=== PATIENT | female | born 1995 | race Caucasian/White ===

== ENCOUNTER 2021-02-08 13:08 | Emergency (ER) | payer OTHER, SELFPAY ==
--- NOTE | ~2021-02-08 | US_ITS ---
EXAMINATION: US OB <= 14 weeks fetus DATE: 02/08/2021 16:34 INDICATION: Vaginal spotting and cramping TECHNIQUE: Real-time transabdominal and transvaginal obstetric ultrasound. FINDINGS: The uterus measures 12.7 x 8.5 x 8.3 cm. There is an intrauterine gestational sac, with pole id entified. The crown rump length measures 7.22 cm, which correlates with a estimated gestational age of 13 weeks 3 days. heart tones are identified measuring 157 BPM. IMPRESSION: 1. SL IUP with an EGA of 13 weeks, 3 days (EDC by current ultrasound of 08/13/2021). Reviewed, dictated and finalized at location A. IMPRESSION: 1. SL IUP with an EGA of 13 weeks, 3 days (EDC by current ultrasound of 08/14/19).
[2021-02-08 13:16] VITALS: BP 147/68; PULSE 84; RESP 18; TEMP 37.2; O2SAT 100
[2021-02-08 14:50] LABS: Basophils Percent Auto 0.1 % (0.2-1.2); Eosinophils Percent Auto 0.5 % (0-4.4); Hematocrit 38.2 % (37.0-47.0); Hemoglobin 12.9 g/dL (12.0-15.0); Immature Granulocyte Absolute 0.04 K/mm3 (0.00-0.031); Immature Granulocyte Percent A 0.5 % (0-0.5); Lymphocytes Absolute Auto 1.64 K/mm3 (0.9-3.2); Lymphocytes Percent Auto 18.5 % (18.3-44.2); Mean Corpuscular HGB Conc 33.8 g/dl (32-36); Mean Corpuscular Hemoglobin 31.9 pg (26-34); Mean Corpuscular Volume 94.3 fl (80-100); Mean Platelet Volume 9.4 fl (7.4-10.4); Monocytes Absolute Auto 0.4 K/mm3 (0.1-0.6); Monocytes Percent Auto 4.4 % (2.6-8.5); Neutrophils Absolute Auto 6.8 K/mm3 (1.3-6.7); Platelet Count Result 271 k/mm3 (150-375); Red Blood Count 4.05 M/mm3 (4.2-5.4); White Blood Count 8.9 K/mm3 (4.5-10.0)
[2021-02-08 16:30] VITALS: BP 120/72; PULSE 83; RESP 16; O2SAT 100
--- NOTE | 2021-02-08 16:49 | ED.GENADULT ---
HPI - General Adult General Chief complaint: Vaginal Bleeding Stated complaint: 13 wks preg, bleeding Time Seen by Provider: 02/08/21 16:27 Source: patient Mode of arrival: ambulatory Limitations: no limitations History of Present Illness HPI narrative: Patient presents for evaluation of abdominal pain for the last few days. Pain is intermittent, bilateral upper quadrants lower quadrants and without radiation. She states she is currently , 13 weeks gestation. She has already had a confirmed IUP per ultrasound during this . G1, P0. States she is under the care of Dr. Negro. She contacted them last night regarding her abdominal pain. Informed her he thought it was related to constipation advised her to take Colace and an enema. She waited until this morning before she did so. She has small bowel movement thereafter. she had successful reduction in pain level thereafter. She indicates she noted some brown discharge on the tissue after wiping with urination earlier today, but this was an isolated episode. She states she has urinated several times since then without any symptom recurrence. Denies any vaginal bleeding, spotting or other urinary symptoms. She has a longstanding history of constipation. Surgical history positive for appendectomy and cholecystectomy. Related Data Allergies Allergy/AdvReac Type Severity Reaction Status Date / Time diphenhydramine AdvReac Unknown Hyperactive Unverified 03/23/14 11:30 Review of Systems Review of Systems: CONSTITUTIONAL: Denies fever, chills, or sweats. EYES: Denies visual changes, redness, or discharge. ENT: Denies rhinorrhea, congestion, sore throat, or otalgia. CARDIOVASCULAR: Denies chest pain, palpitations, or edema. RESPIRATORY: Denies cough or dyspnea. GASTROINTESTINAL: Reports abdominal pain and constipation. Denies nausea, vomiting, or diarrhea. GENITOURINARY: Reports brown discharge on tissue after wiping with urination earlier, now resolved. Denies any vaginal bleeding. Denies dysuria or hematuria. SKIN: Denies rash or itching. MUSCULOSKELETAL: Denies back pain, joint pain, or myalgia. NEUROLOGIC: Denies headache, numbness, dizziness, or weakness. PSYCHIATRIC: Denies anxiety or depression. [facility] Past Medical History Medical History (Updated 02/08/21 @ 17:28 by Jarrell Purcell, FITNESS CENTER ATTENDANT, ) Constipation Surgical History Surgical History History of appendectomy History of cholecystectomy Family History Family History Mother No pertinent past medical history Social History Social History Smoking status: Never smoker Substance use: never Gender identity (if verbalized by the patient): Female Sexual Orientation (if Verbalized by the Patient): Straight or Heterosexual Spiritual care concerns: No Exam Narrative: GENERAL: Well-appearing, well-nourished, and in no acute distress. HEAD: Normocephalic, atraumatic. EYES: PERRLA and EOMI. ENT: Nares clear, no rhinorrhea or epistaxis. Mucous membranes moist. Oropharynx without tonsillar hypertrophy exudate or other lesions. Bilateral TMs pearly mann nonbulging NECK: Supple. No adenopathy or masses. No carotid bruits or JVD CHEST: Clear to auscultation. No respiratory distress. No wheezes rales or rhonchi HEART: Regular rate and rhythm. No murmur heard. Normal peripheral pulses. ABDOMEN: Soft, nontender, nondistended, normal active bowel sounds. EXTREMITIES: Normal range of motion. No edema. SKIN: Warm, dry, no rash. NEURO: No focal deficits. Alert and oriented x3. PSYCH: Normal mood and affect. Declined pelvic exam Course Course Emergency Course: This is a 25-year-old female currently 13 weeks gestation that presented with complaints of abdominal pain. She suspected constipation as underlying cause an
[2021-02-08 17:11] LABS: Alanine Aminotransferase 22 U/L (4-35); Albumin Level 4.4 g/dL (3.5-5.1); Alkaline Phosphatase 66 U/L (38-126); Anion Gap 11 mmol/L (8-16); Aspartate Amino Transferase 33 U/L (14-36); Bilirubin,Total 0.3 mg/dL (0.2-1.3); Blood Urea Nitrogen 7 mg/dL (7-17); Carbon Dioxide 19 mmol/L (22-30); Chloride 105 mmol/L (98-107); Estimated CRCL calculation 127 ml/min; Estimated Glomerular Filt Rate > 60; Glucose 92 mg/dL (65-110); Lipase 34 U/L (23-300); Potassium 4.2 mmol/L (3.4-5.0); Sodium 135 mmol/L (137-145)
[2021-02-08 17:17] LABS: Add Urine Microscopic? YES; Appearance Urine Clear (Clear); Bilirubin Urine Negative (Negative); Blood Urine Negative (Negative); Color Urine Yellow (Yellow); Glucose Urine UA Negative (Negative); Ketones Urine 1+ mg/dL (Negative); Leukocyte Esterase Ur Trace LEU/UL (Negative); Mucus Urine Rare /lpf; Nitrate Urine Negative (Negative); Protein Urine Negative (Negative); Specific Grav Ur 1.013 (1.001-1.035); Squamous Epithelial Cell Urine Occasional /hpf (Few); Urobilinogen Urine Negative mg/dL (<2.0); WBC Urine 0-3 /hpf
[2021-02-08 17:42] VITALS: BP 114/70; PULSE 64; RESP 16; O2SAT 100
== END 2021-02-08 17:44 | disposition home or self-care (01) ==
PROVIDERS: Emergency Medicine; Emergency Provider Nurse Practitioner; PCP Obstetrics & Gynecology
DX: O99.611 Diseases of the digestive system complicating pregnancy, first trimester (principal); K59.09 Other constipation; Z3A.13 13 weeks gestation of pregnancy
CPT/HCPCS: 36415; 76801; 80053; 81001; 83690; 84702; 85025; 85461; 96372; 99284

== ENCOUNTER 2021-04-01 10:00 | Outpatient (CLI) | payer OTHER, SELFPAY ==
--- NOTE | 2021-04-01 | ECG_ITS ---
Measurements Intervals Trail Rate: 61 P: 25 MO: 142 QRS: 32 QRSD: 87 T: 14 QT: 391 QTc: 395 Interpretive Statements SINUS RHYTHM NORMAL ECG Electronically Signed On 04-01-2021 15:20:11 SR RISK MANAGEMENT CONSULTANT by Bruno Booker D.O.
== END 2021-04-01 10:01 | disposition home or self-care (01) ==
PROVIDERS: Visit Provider Obstetrics & Gynecology
DX: R07.89 Other chest pain (principal)
CPT/HCPCS: 93005

== ENCOUNTER 2021-05-16 12:17 | Outpatient (RCR) | payer OTHER, SELFPAY ==
[2021-05-16 13:44] LABS: Hematocrit 31.5 % (37.0-47.0); Hemoglobin 10.8 g/dL (12.0-15.0)
[2021-05-16 13:55] LABS: Glucose 1 Hour PP 50gm Dose 153 mg/dL
[2021-05-16 14:36] LABS: HIV 1/2 Ab P24 Ag Result Negative (Negative)
[2021-05-17] MEDS: RHO(D) IMMUNE GLOBULIN 300 MCG/2 ML SYRINGE IM (11:47)
[2021-05-17 14:39] LABS: Rapid Plasma Reagin Non-Reactive (NonReactive)
== END 2021-08-14 23:59 | disposition home or self-care (01) ==
LOC: ANHLAB 12:17
PROVIDERS: Visit Provider Obstetrics & Gynecology
DX: Z11.4 Encounter for screening for human immunodeficiency virus [HIV] (principal); Z29.13 Encounter for prophylactic Rho(D) immune globulin; O36.0130 Maternal care for anti-D [Rh] antibodies, third trimester, not applicable or unspecified; Z3A.00 Weeks of gestation of pregnancy not specified
CPT/HCPCS: 36415; 82947; 85014; 85018; 85461; 86592; 86703; 90384; 96372; G0432; J2790

== ENCOUNTER 2021-07-16 09:49 | Outpatient (RCR) | payer OTHER, SELFPAY ==
[2021-04-24 18:47] VITALS: BP 114/73; PULSE 76
[2021-06-29 12:55] VITALS: BP 115/68; PULSE 93
[2021-07-16 10:34] VITALS: BP 122/63; PULSE 95
== END 2021-07-23 23:59 | disposition home or self-care (01) ==
LOC: ANHOBOP 09:49
PROVIDERS: Visit Provider Obstetrics & Gynecology
DX: O36.8120 Decreased fetal movements, second trimester, not applicable or unspecified (principal); Z3A.24 24 weeks gestation of pregnancy; O26.893 Other specified pregnancy related conditions, third trimester; R03.0 Elevated blood-pressure reading, without diagnosis of hypertension; Z3A.33 33 weeks gestation of pregnancy; Z3A.36 36 weeks gestation of pregnancy
CPT/HCPCS: 59025

== ENCOUNTER 2021-07-30 00:06 | Inpatient (IN) | payer OTHER, SELFPAY ==
[2021-07-30] VITALS (174 sets, daily range): BP systolic 50–147; BP diastolic 31–95; PULSE 48–123; RESP 14–20; TEMP 36.6–37.5; O2SAT 96–100; BMI 39.0
--- OUTSIDE RECORDS SUMMARY | 2021-07-30 00:07 | XMS_ITS | Encounter Summary ---
:1995 Author Reason for Visit NST Assessment and Plan 1. Chronic hypertension in obste tric context ? non-stress test Discussion Note: None recorded.Patient educational handouts: No information available. Plan of Care Reminders Provider Appointments Nst 08/02/2021 Nst, , EQ UIP 11:30AM ? Nst 08/05/2021 Nst, , EQUI P 9:15AM ? Ob Routine 08/05/2021 Yolie Strickland, 9:45AM CNM ? Nst 08/09/2021 Nst, , EQUI P 11:30AM ? Nst 08/12/2021 Nst, , EQUI P 9:15AM ? Ob Routine 08/12/2021 Yolie Strickland, 9:45AM CNM ? Nst 08/16/2021 Nst, , EQUI P 11:30AM ? 1Hr on or around Rayshawn S cott Glucose 09/13/2021 MD Marky Lab None ? ? recorded. Referral None ? ? recorded. Procedures None ? ? recorded. Surgeries None ? ? recorded. Imaging Non-stress 07/26/2021 Demetria lle Test Medications Name Start Date ? ? Flintstones Complete ? ondansetron 8 mg disintegrating tablet ? DISSOLVE 1 TABLET IN MOUTH TWICE DAILY
--- OUTSIDE RECORDS SUMMARY | 2021-07-30 00:07 | XMS_ITS ---
:1995 Author Care Team Providers Name Role Phone MarkyDmRayshawntori Watters Primary Care Provider Unavailable Allergies Code Code System Name Reaction Severity Status Onset [id number] RxNorm Benadryl ? ? Active ? Medications Name Status Start Date Stop Date ? ? amoxicillin 500 mg capsule Completed ? 10/22 TAKE 1 CAPSULE BY MOUTH THREE TIMES DAILY FOR 7 DAYS amoxicillin 500 mg tablet Completed ? 2020 TK1 TABLET BY MOUTH THREE TIMES DAILY FOR 10 DAYS azithromycin 250 mg tablet Completed ? 06/24 TAKE 2 TABLETS BY MOUTH ON DAY 1, AND T HEN TAKE 1 TABLET BY MOUTH ONCE A DAY ON DAY 2 THROUGH DAY 5 Cleocin Completed ? 03/09/2020 clindamycin 1 % lotion Completed ? APPLY A THIN LAYER OF LOTION TOPICALLY 2 3 TIMES A WEEK AT NIGHT WASH OFF IN THE MORNING Diflucan 150 mg tablet Completed 08/19/2015 6 take 1 tablet by oral route once doxycycline monohydrate 100 mg capsule Completed 7 04/21/2019 take 1 capsule by oral route every day Flintstones Complete Active ? Not availab le fluconazole 200 mg tablet Completed ? 2020 TAKE 1 TABLET BY MOUTH EVERY OTHER DAY FOR 3 DOSES fluticasone propionate 50 mcg/actuation nasal spray,suspension C ompleted ? 10/22/2020 USE 2 SPRAY(S) IN EACH NOSTRIL ONCE DAILY NEEDED Gianvi (28) 3 mg-0.02 mg tablet Completed ? 06/29/2020 TAKE 1 TABLET BY MOUTH ONCE DAILY Microgestin FE 06/09 (28) 1 mg-20 mcg (21)/75 mg (7) tablet Compl eted ? 12/22/2020 take on tablet by oral route every day
--- OUTSIDE RECORDS SUMMARY | 2021-07-30 00:07 | XMS_ITS | Encounter Summary ---
:1995 Author Reason for Visit NST [id number] EDC 08/13/2021 LMP 11/06/2020 Assessment and Plan 1. Chronic hypertension complica ting AND/OR reason for care during ? non-stress test Discussion Note: None recorded.Patient educational handouts: No information available. Plan of Care Reminders Provider Appointments Nst 08/02/2021 Nst, , EQ UIP 11:30AM ? Nst 08/05/2021 Nst, , EQUI P 9:15AM ? Ob Routine 08/05/2021 Yolie Strickland, 9:45AM CNM ? Nst 08/09/2021 Nst, , EQUI P 11:30AM ? Nst 08/12/2021 Nst, , EQUI P 9:15AM ? Ob Routine 08/12/2021 Yolie Laureanoe, 9:45AM CNM ? Nst 08/16/2021 Nst, , EQUI P 11:30AM ? 1Hr on or around Rayshawn rolle Junior 09/13/2021 MD Marky Lab None ? ? recorded. Referral None ? ? recorded. Procedures None ? ? recorded. Surgeries None ? ? recorded. Imaging Non-stress 07/29/2021 Demetria guzman Test Medications Name Start Date ? ? Flintstones Complete ? ondansetron 8
--- OUTSIDE RECORDS SUMMARY | 2021-07-30 00:07 | XMS_ITS | Encounter Summary ---
:1995 Author Reason for Visit OB visit Assessment and Plan Assessment Note Patient is ___weeks . Discu ssed plan. 1. Routine care Discussion Note: None recorded.Patient educational handouts: No [...] recorded. Surgeries None ? ? recorded. Imaging None ? ? recorded. Medications Name Start Date ? ? Flintstones Complete ? ondansetron 8 mg disintegrating tablet ?
--- OUTSIDE RECORDS SUMMARY | 2021-07-30 00:07 | XMS_ITS | Encounter Summary ---
:1995 Author Reason for Visit OB visit OB [id number] EDC 08/13/2021 LMP 11/06/2020 Assessment and Plan Assessment Note Patient is _37__weeks . Dis cussed plan. 1. Routine care Discussion Note: None recorded.Patient educational handouts: No information available. Plan of Care Reminders Provider Appointments Nst 08/02/2021 Nst, , EQ UIP 11:30AM ? Nst 08/05/2021 Nst, , EQUI P 9:15AM ? Ob Routine 08/05/2021 Yolie Laureanoe, 9:45AM CNM ? Nst 08/09/2021 Nst, , EQUI P 11:30AM ? Nst 08/12/2021 Nst, , EQUI P 9:15AM ? Ob Routine 08/12/2021 Yolie Stollgle, 9:45AM CNM ? Nst 08/16/2021 Nst, , EQUI P 11:30AM ? 1Hr on or around Rayshawn Ballard sariah Pacheco 09/13/2021 MD Marky Lab None ? ? recorded. Referral None ? ? recorded. Procedures None ? ? recorded. Surgeries None ? ? recorded. Imaging None ? ? recorded. Medications Name Start Date ? ? Flintstones Complete ?
--- OUTSIDE RECORDS SUMMARY | 2021-07-30 00:08 | XMS_ITS | Encounter Summary ---
:1995 Author Reason for Visit NST [id number] EDC 08/13/2021 LMP 11/06/2020 Assessment and Plan 1. Chronic hypertension in [...] Surgeries None ? ? recorded. Imaging Non-stress 07/19/2021 Marysary lladrian Test Medications Name Start Date ? ? Flintstones Complete ? ondansetron 8 mg disintegrating tablet ? DISSOLVE 1 TABLET IN MO
--- OUTSIDE RECORDS SUMMARY | 2021-07-30 00:08 | XMS_ITS | Encounter Summary ---
:1995 Author Reason for Visit None recorded. Assessment and Plan 1. Oligohydramnios ? US, obstetric, biophysical profile Discussion Note: None recorded.Patient educational handouts: No information available. Plan of Care Reminders Provider Appointments Nst 08/02/2021 Nst, , EQ UIP 11:30AM ? Nst 08/05/2021 Nst, , EQUI P 9:15AM ? Ob Routine 08/05/2021 Yolie E 9:45AM [place], CNM ? Nst 08/09/2021 Nst, , EQUI P 11:30AM ? Nst 08/12/2021 Nst, , EQUI P 9:15AM ? Ob Routine 08/12/2021 Yolie E 9:45AM [place], CNM ? Nst 08/16/2021 Nst, , EQUI P 11:30AM ? 1Hr Glucose on or around Dm Watters 09/13/2021 MD Marky Lab None ? ? recorded. Referral None ? ? recorded. Procedures None ? ? recorded. Surgeries None ? ? recorded. Imaging US, 07/08/2021 [place] [facility], Biophysical Profile Medications Name Start Date ? ?
--- OUTSIDE RECORDS SUMMARY | 2021-07-30 00:08 | XMS_ITS | Encounter Summary ---
:1995 Author Reason for Visit OB visit Assessment and Plan Assessment Note Patient is ___weeks . Discu ssed plan. 1. Oligohydramnios 2. Gastroesophageal reflux disea se 3. Chronic hypertension complica ting AND/OR reason for care during Discussion Note: None recorded.Patient educational handouts: No [...]
--- OUTSIDE RECORDS SUMMARY | 2021-07-30 00:08 | XMS_ITS | Encounter Summary ---
:1995 Author Reason for Visit None recorded. Assessment and Plan 1. Chronic hypertension complica [...] ? 1Hr on or around Rayshawn Ballard cott Glucose 09/13/2021 MD Marky Lab None ? ? recorded. Referral None ? ? recorded. Procedures None ? ? recorded. Surgeries None ? ? recorded. Imaging Non-stress 07/05/2021 Demetria lladrian Test Medications Name Start Date ? ? Flintstones Complete ? ondansetron 8 mg disintegrating tablet
--- OUTSIDE RECORDS SUMMARY | 2021-07-30 00:08 | XMS_ITS | Encounter Summary ---
[...] ? 1Hr on or around Rayshawn rolle Glucose 09/13/2021 MD Marky Lab None ? ? recorded. Referral None ? ? recorded. Procedures None ? ? recorded. Surgeries None ? ? recorded. Imaging Non-stress 07/22/2021 Demetria lladrian Test Medications Name Start Date ? ? Flintstones Complete ? ondansetron 8 mg disintegrating tablet ?
--- OUTSIDE RECORDS SUMMARY | 2021-07-30 00:08 | XMS_ITS | Encounter Summary ---
:1995 Author Reason for Visit None recorded. Assessment and Plan 1. Maternal obesity complicating , childbirth and the puerperium, antepartum ? US, obstetric, biophysical profile + non-stress test Discussion Note: None recorded.Patient educational handouts: No information available. Plan of Care Reminders Provider Appointments Nst 08/02/2021 Nst, , EQ UIP 11:30AM ? Nst 08/05/2021 Nst, , EQUI P 9:15AM ? Ob Routine 08/05/2021 Yolie E 9:45AM [place], CNM ? Nst 08/09/2021 Nst, , EQUI P 11:30AM ? Nst 08/12/2021 Nst, , EQUI P 9:15AM ? Ob Routine 08/12/2021 Yolie E 9:45AM [place], CNM ? Nst 08/16/2021 Nst, , EQUI P 11:30AM ? 1Hr Glucose on or around Dm Watters 09/13/2021 MD Marky Lab None ? ? recorded. Referral None ? ? recorded. Procedures None ? ? recorded. Surgeries None ? ? recorded. Imaging US, 07/15/2021 [place] [facility], Biophysical Profile + Non-stress Test
--- OUTSIDE RECORDS SUMMARY | 2021-07-30 00:08 | XMS_ITS | Encounter Summary ---
:1995 Author Reason for Visit None recorded. Assessment and Plan 1. Maternal obesity complicating , childbirth and the puerperium, antepartum ? non-stress test Discussion Note: None recorded.Patient [...] Surgeries None ? ? recorded. Imaging Non-stress 07/15/2021 Demetria lladrian Test Medications Name Start Date ? ? Flintstones Complete ? ondansetron 8 mg disintegratin
--- OUTSIDE RECORDS SUMMARY | 2021-07-30 00:08 | XMS_ITS | Encounter Summary ---
:1995 Author Reason for Visit NST [id number] EDC 08/13/2021 LMP 11/06/2020 Assessment and Plan 1. Gestational diabetes mellitus , class A>1< ? non-stress test Discussion Note: None recorded.Patient [...] Surgeries None ? ? recorded. Imaging Non-stress 07/12/2021 Demetria guzman Test Medications Name Start Date ? ? Flintstones Complete ? ondansetron 8 mg disintegrating tablet ? DISSOLVE 1 TABLET IN
--- OUTSIDE RECORDS SUMMARY | 2021-07-30 00:08 | XMS_ITS | Encounter Summary ---
[...] Surgeries None ? ? recorded. Imaging Non-stress 07/08/2021 Demetria lladrian Test Medications Name Start Date ? ? Flintstones Complete ? ondansetron 8 mg disintegrating tablet
--- OUTSIDE RECORDS SUMMARY | 2021-07-30 00:08 | XMS_ITS | Encounter Summary ---
:1995 Author Reason for Visit None recorded. Assessment and Plan 1. -induced hypertensio n ? non-stress test Discussion Note: None recorded.Patient [...] ? ? recorded. Imaging Non-stress 07/22/2021 Demetria guzman Test Medications Name Start Date ? ? Flintstones Complete ? ondansetron 8 mg disintegrating tablet ? DISSOLVE 1 TABLET IN MOUTH TWICE DAILY
--- OUTSIDE RECORDS SUMMARY | 2021-07-30 00:08 | XMS_ITS | Encounter Summary ---
:1995 Author Reason for Visit OB visit OB [id number] EDC 08/13/2021 LMP 11/06/2020 Assessment and Plan Assessment Note Patient is __33 _weeks . Di scussed plan. 1. Routine care Discussion Note: None recorded.Patient educational handouts: No information available. Plan of Care Reminders Provider Appointments Nst 08/02/2021 Nst, , EQ UIP 11:30AM ? Nst 08/05/2021 Nst, , EQUI P 9:15AM ? Ob Routine 08/05/2021 Yolie Stollgle, 9:45AM CNM ? Nst 08/09/2021 Nst, , EQUI P 11:30AM ? Nst 08/12/2021 Nst, , EQUI P 9:15AM ? Ob Routine 08/12/2021 Yolieharmeet Stollgle, 9:45AM CNM ? Nst 08/16/2021 Nst, [...]
--- OUTSIDE RECORDS SUMMARY | 2021-07-30 00:09 | XMS_ITS | Encounter Summary ---
[...] Surgeries None ? ? recorded. Imaging Non-stress 06/21/2021 Demetria lladrian Test Medications Name Start Date ? ? Flintstones Complete ? ondansetron 8 mg disintegrating tablet
--- OUTSIDE RECORDS SUMMARY | 2021-07-30 00:09 | XMS_ITS | Encounter Summary ---
:1995 Author Reason for Visit OB visit [id number] Assessment and Plan Assessment Note . 1. Routine care Discussion Note: None recorded.Patient [...] 1Hr on or around Rayshawn Ballard cott [facility] 09/13/2021 MD Marky Lab None ? ? recorded. Referral None ? ? recorded. Procedures None ? ? recorded. Surgeries None ? ? recorded. Imaging None ? ? recorded. Medications Name Start Date ? ? Flintstones Complete ? ondansetron 8 mg disintegrating tablet ?
--- OUTSIDE RECORDS SUMMARY | 2021-07-30 00:09 | XMS_ITS | Encounter Summary ---
:1995 Author Reason for Visit None recorded. Assessment and Plan 1. Oligohydramnios ? US, obstetric, biophysical profile Discussion Note: None recorded.Patient educational handouts: No information available. Plan of Care Reminders Provider Appointments Nst 08/02/2021 Nst, , EQ UIP 11:30AM ? Nst 08/05/2021 Nst, , EQUI P 9:15AM ? Ob Routine 08/05/2021 Yolie E 9:45AM [place], CNM ? Nst 08/09/2021 Nst, , EQUI [...] Surgeries None ? ? recorded. Imaging US, 07/01/2021 [place] [facility], Biophysical Profile Medications Name Start Date ? ?
--- OUTSIDE RECORDS SUMMARY | 2021-07-30 00:09 | XMS_ITS | Encounter Summary ---
:1995 Author Reason for Visit None recorded. Assessment and Plan 1. Maternal obesity complicating , childbirth and the puerperium, antepartum ? US, obstetric, follow-up Discussion Note: None recorded.Patient educational handouts: No [...] Surgeries None ? ? recorded. Imaging US, 05/19/2021 [place] [facility], Follow-up Medications Name Start Date ? ? FlintsLOOKSIMAes Com
--- OUTSIDE RECORDS SUMMARY | 2021-07-30 00:09 | XMS_ITS | Encounter Summary ---
:1995 Author Reason for Visit OB visit OB [id number] EDC 08/13/2021 LMP 11/06/2020 Assessment and Plan Assessment Note Patient is __32_weeks . Dis cussed plan. 1. Routine care [...]
--- OUTSIDE RECORDS SUMMARY | 2021-07-30 00:09 | XMS_ITS | Encounter Summary ---
[...] Surgeries None ? ? recorded. Imaging Non-stress 06/28/2021 Demetria lladrian Test Medications Name Start Date ? ? Flintstones Complete ? ondansetron 8 mg disintegrating tablet
--- OUTSIDE RECORDS SUMMARY | 2021-07-30 00:09 | XMS_ITS | Encounter Summary ---
[...] Surgeries None ? ? recorded. Imaging Non-stress 06/24/2021 Demetria lladrian Test Medications Name Start Date ? ? Flintstones Complete ? ondansetron 8 mg disintegrating tablet
--- OUTSIDE RECORDS SUMMARY | 2021-07-30 00:09 | XMS_ITS | Encounter Summary ---
:1995 Author Reason for Visit None recorded. Assessment and Plan 1. Gestational diabetes mellitus , class A>1< Pt here for diet teaching. t teaching completed. Carb counts for meals and snacks reviewed. Pt instructed on ho w to read nutritional labels and instructed on researching carb counts for fresh fru its and vegetables. Pt provided with print outs with some fresh food carb counts an d online resources reinforced for checking fresh food serving sizes and carb counts . Pt instructed on blood sugar level goals and importance of checking blood sugar a nd keeping blood sugar log. Pt instructed on high protein low carb and provided with food recommendations. Pt instructed on 2200 calorie ADA diet and importance of regul ar meals and snacks with controlled carb amounts for a usp stable control o f blood sugar. Pt is aware an OB steamship agent will call her next week to review her BS log after making diet changes. Pt verbalized understanding of information discussed. Mary Chapin RN Discussion Note: None recorded.Patient educational handouts: No information available. Plan of Care Reminders Provider Appointments Nst 08/02/2021 Nst, , EQ UIP 11:30AM ? Nst 08/05/2021 Nst, , EQUI P 9:15AM ? Ob Routine 08/05/2021 Yolie Strickland, 9:45AM CNM ? Nst 08/09/2021 Nst, , EQUI P 11:30AM ? Nst 08/12/2021 Nst, , EQUI P 9:15AM ? Ob Routine 08/12/2021 Yolieharmeet Laureanoe, 9:45AM CNM ? Nst 08/16/2021 Nst, , EQUI P
--- OUTSIDE RECORDS SUMMARY | 2021-07-30 00:09 | XMS_ITS | Encounter Summary ---
[...] Surgeries None ? ? recorded. Imaging US, 06/24/2021 [place] [facility], Follow-up Medications Name Start Date ? ? FlintsContact At Once!es Com
--- OUTSIDE RECORDS SUMMARY | 2021-07-30 00:09 | XMS_ITS | Encounter Summary ---
[...] Surgeries None ? ? recorded. Imaging Non-stress 07/01/2021 Demetria lladrian Test Medications Name Start Date ? ? Flintstones Complete ? ondansetron 8 mg disintegrating tablet
[2021-07-30 00:46] LABS: Basophils Percent Auto 0.2 % (0.2-1.2); Eosinophils Absolute Auto 0.1 K/mm3 (0-0.3); Eosinophils Percent Auto 0.6 % (0-4.4); Hematocrit 31.4 % (37.0-47.0); Hemoglobin 10.4 g/dL (12.0-15.0); Immature Granulocyte Absolute 0.13 K/mm3 (0.00-0.031); Immature Granulocyte Percent A 1.1 % (0-0.5); Lymphocytes Absolute Auto 2.07 K/mm3 (0.9-3.2); Lymphocytes Percent Auto 16.8 % (18.3-44.2); Mean Corpuscular HGB Conc 33.1 g/dl (32-36); Mean Corpuscular Hemoglobin 30.1 pg (26-34); Mean Platelet Volume 9.8 fl (7.4-10.4); Monocytes Absolute Auto 0.8 K/mm3 (0.1-0.6); Monocytes Percent Auto 6.4 % (2.6-8.5); Neutrophils Absolute Auto 9.2 K/mm3 (1.3-6.7); Neutrophils Percent Auto 74.9 % (45.5-73.1); Platelet Count Result 294 k/mm3 (150-375); Red Blood Count 3.45 M/mm3 (4.2-5.4); Red Cell Distribution Width 12.6 % (11.5-14.5); White Blood Count 12.3 K/mm3 (4.5-10.0)
--- NOTE | 2021-07-30 00:47 | LDADM ---
This patient, Marleny Truong, was admitted to Labor/Delivery/Recovery 107 on 07/30/21 at 00:01. Plans for labor, pain management and were discussed with patient. Patient/family oriented to hospital policies and general routines including ID bracelet, bed and alarms, visiting hours, pain management, procedures, bathroom and other care routines, personal items, smoking policy, room service/diet and guest tray routines, infant security routines, and visiting hours. Patient/Family are encouraged to report perceived risks to care and to ask questions if they do not understand what they are told or what they should do. See OBIX for further documentation.
[2021-07-30 00:57] LABS: Alanine Aminotransferase 10 U/L (4-35); Albumin Level 3.7 g/dL (3.5-5.1); Alkaline Phosphatase 173 U/L (38-126); Anion Gap 6 mmol/L (8-16); Aspartate Amino Transferase 21 U/L (14-36); Bilirubin,Total 0.3 mg/dL (0.2-1.3); Blood Urea Nitrogen 9 mg/dL (7-17); Calcium 8.8 mg/dL (8.4-10.2); Carbon Dioxide 19 mmol/L (22-30); Chloride 108 mmol/L (98-107); Estimated Glomerular Filt Rate > 60; Glucose 110 mg/dL (65-110); Sodium 133 mmol/L (137-145); Uric Acid 4.4 mg/dL (2.5-7.5)
[2021-07-30] MEDS: DINOPROSTONE 10 MG VAG INSERT VAGINAL (00:58)
[2021-07-30 01:37] LABS: HIV 1/2 Ab P24 Ag Result Negative (Negative)
[2021-07-30 04:21] LABS: Glucose Point of Care 91 mg/dl (65-105)
[2021-07-30] MEDS: SERTRALINE HCL 50 MG TABLET PO (04:29)
[2021-07-30 07:54] LABS: Rapid Plasma Reagin Non-Reactive (NonReactive)
[2021-07-30 08:07] LABS: Glucose Point of Care 95 mg/dl (65-105)
--- NOTE | 2021-07-30 08:38 | WPDOBADMIT ---
Obstetrics - Admit Note Admission Note: 25 y /o G1 @ 38 weeks here for induction of labor for chtn. record reviewed. No pertinent additions to the history and/or any subsequent changes in the physical findings that are not consistent with the expected course of the were found. Additions to the history and/or subsequent changes in the physical findings follow. None.
[2021-07-30 12:19] LABS: Glucose Point of Care 110 mg/dl (65-105)
[2021-07-30] MEDS: LACTATED RINGERS 1,000 ML 125 ML IV CONT (13:32)
[2021-07-30] MEDS: OXYTOCIN 30 UNITS/NS 500 ML 30 UNITS/500 ML BAG 6 UNITS IV CONT (13:35)
--- NOTE | 2021-07-30 15:25 | PM.OBPNLAB ---
Pain Control Date/time seen: 07/30/21 15:25 VSS Contractions irregular FHR category 1 Cervix /-2 AROM moderate amount of clear odorless fluid Epidural as desired
[2021-07-30 16:13] LABS: Glucose Point of Care 78 mg/dl (65-105)
[2021-07-30] MEDS: LACTATED RINGERS 1,000 ML 999 ML IV CONT ×2 (17:59→19:42)
--- NOTE | 2021-07-30 18:48 | WPDANESEPP ---
Anes - Eval Pre Procedure Procedure: labor epidural Date/Time: 07/30/21 18:48 Surgeon: mele Preop Diagnosis: pain during labor Pre Op Diagnosis: medical induction of labor Patient Data Age: 25 Gender: F Height: 1.6 m Weight: 100 kg Last Vital Signs Temp 37.4 C 07/30/21 17:00 Pulse 86 07/30/21 18:46 Resp 16 07/30/21 04:49 BP 129/53 L 07/30/21 18:46 Pulse Ox 100 07/30/21 18:47 Allergies Allergy/AdvReac Type Severity Reaction Status Date / Time diphenhydramine AdvReac Unknown Hyperactive Verified 07/30/21 02:07 Home Medications Medication Instructions Recorded Confirmed Type pantoprazole [Protonix] See Rx Instructions .ROUTE .COMPLEX 07/30/21 07/30/21 History sertraline [Zoloft] See Rx Instructions .ROUTE .COMPLEX 07/30/21 07/30/21 History Laboratory Tests 07/30/21 07/30/21 07/30/21 00:19 00:19 00:19 WBC 12.3 K/mm3 H K/mm3 (4.5-10.0) RBC 3.45 M/mm3 L M/mm3 (4.2-5.4) Hgb 10.4 g/dL L g/dL (12.0-15.0) Hct 31.4 % L % (37.0-47.0) MCV 91.0 fl fl (80-100) MCH 30.1 pg pg (26-34) MCHC 33.1 g/dl g/dl (32-36) RDW 12.6 % % (11.5-14.5) Plt Count 294 k/mm3 k/mm3 (150-375) MPV 9.8 fl fl (7.4-10.4) Immature Gran % (Auto) 1.1 % H % (0-0.5) Neut % (Auto) 74.9 % H % (45.5-73.1) Lymph % (Auto) 16.8 % L % (18.3-44.2) [place] % (Auto) 6.4 % % (2.6-8.5) Eos % (Auto) 0.6 % % (0-4.4) Baso % (Auto) 0.2 % % (0.2-1.2) Lymph # (Auto) 2.07 K/mm3 K/mm3 (0.9-3.2) [place] # (Auto) 0.8 K/mm3 H K/mm3 (0.1-0.6) Eos # (Auto) 0.1 K/mm3 K/mm3 (0-0.3) Baso # (Auto) 0.0 K/mm3 K/mm3 (0.0-0.1) Abs Immat Gran (auto) 0.13 K/mm3 H K/mm3 (0.00-0.031) Absolute Neuts (auto) 9.2 K/mm3 H K/mm3 (1.3-6.7) Absolute Nucleated RBC 0.0 K/mm3 K/mm3 (0.0-0.012) Nucleated RBC % 0.0 % % (0.0-0.2) Sodium Potassium Chloride Carbon Dioxide Anion Gap BUN Creatinine Estim Creat Clear Calc Estimated GFR Glucose POC Capillary Glucose Uric Acid 4.4 mg/dL mg/dL (2.5-7.5) Calcium Total Bilirubin AST ALT Alkaline Phosphatase Total Protein Albumin RPR Non-reactive (NonReactive) HIV 1&2 Ab/P24 Ag 4thGn Blood Type Antibody Screen 07/30/21 07/30/21 07/30/21 00:19 00:19 00:19 WBC RBC Hgb Hct MCV MCH MCHC RDW Plt Count MPV Immature Gran % (Auto) Neut % (Auto) Lymph % (Auto) [place] % (Auto) Eos % (Auto) Baso % (Auto) Lymph # (Auto) [place] # (Auto) Eos # (Auto) Baso # (Auto) Abs Immat Gran (auto) Absolute Neuts (auto) Absolute Nucleated RBC Nucleated RBC % Sodium 133 mmol/L L mmol/L (137-145) Potassium 4.0 mmol/L mmol/L (3.4-5.0) Chloride 108 mmol/L H mmol/L (98-107) Carbon Dioxide 19 mmol/L L mmol/L (22-30) Anion Gap 6 mmol/L L mmol/L (8-16) BUN 9 mg/dL mg/dL (7-17) Creatinine 0.60 mg/dL L mg/dL (0.7-1.0) Estim Creat Clear Calc Not Reportable Estimated GFR > 60 (59 - ) Glucose 110 mg/dL mg/dL (65-110) POC Capillary Glucose Uric Acid Calcium 8.8 mg/dL mg/dL (8.4-10.2) Total Bilirubin 0.3 mg/dL mg/dL (0.2-1.3) AST 21 U/L U/L (14-36) ALT
[2021-07-30] MEDS: ONDANSETRON INJ 4 MG/2 ML VIAL IV PUSH (18:52)
[2021-07-30] MEDS: PHENYLEPHRINE 1,000 MCG/10 ML SYRINGE 100 MCG IV PUSH ×2 (19:02→19:58)
[2021-07-30 20:33] LABS: Glucose Point of Care 90 mg/dl (65-105)
[2021-07-31] VITALS (152 sets, daily range): BP systolic 88–173; BP diastolic 48–128; PULSE 59–187; RESP 16–18; TEMP 36.3–37.2; O2SAT 87–100
[2021-07-31 00:46] LABS: Glucose Point of Care 81 mg/dl (65-105)
[2021-07-31 04:15] LABS: Glucose Point of Care 95 mg/dl (65-105)
[2021-07-31] MEDS: LACTATED RINGERS 1,000 ML 125 ML IV CONT (04:22)
[2021-07-31] MEDS: SERTRALINE HCL 50 MG TABLET PO (04:28)
[2021-07-31 06:23] LABS: Glucose Point of Care 102 mg/dl (65-105)
--- NOTE | 2021-07-31 08:01 | PM.OBPRVD ---
OB - Delivery Note Procedure Delivery date: 07/31/21 Induction method: Per Pitocin Protocol and Per Cervidil Protocol Delivery monitor: External FHT and External Uterine Route of delivery: Episiotomy description: None Laceration Description: None Quantitative Blood Loss (ml): 109 Anesthesia type: Epidural [place] Baby Date of : 07/31/21 Time of : 07:44 Weeks of gestation at delivery: 38 gender: Female Weight (pounds): 5 Weight (ounces): 14 presentation: vertex position: Left Occiput Anterior Placenta delivery description: Spontaneous Cord Vessel Description: Nuchal Cord (x2 tight. Unable to reduce. Clamped and cut prior to delivery of body.) and Tight
[2021-07-31] MEDS: OXYTOCIN 30 UNITS/NS 500 ML 30 UNITS/500 ML BAG 125 UNITS IV CONT (08:17)
[2021-07-31] MEDS: IBUPROFEN 600 MG TABLET PO ×3 (09:04→22:21)
[2021-07-31] MEDS: BENZOCAINE 20% AER SPR (*SP) 56 GM CAN 1 SPRAY TOPICAL (09:07)
--- NOTE | 2021-07-31 10:15 | OBPPTRN ---
Patient transferred to post room # 290 via wheelchair. Support person present. Oriented to unit, room, information board, rooming in, admission packet and security measures. Patient verbalizes understanding.
[2021-07-31] MEDS: DOCUSATE SODIUM 100 MG CAPSULE PO (15:57)
[2021-07-31] MEDS: TETANUS,DIPHTHERIA,AC PERTUSSIS ADULT (0.5 ML) BOOSTRIX IM (19:23)
[2021-08-01 00:25] VITALS: BP 118/62; PULSE 72; RESP 16; TEMP 36.4; O2SAT 99
[2021-08-01] MEDS: IBUPROFEN 600 MG TABLET PO ×2 (04:24→17:56)
[2021-08-01 04:25] VITALS: BP 108/66; PULSE 68; RESP 16; TEMP 36.6; O2SAT 100
[2021-08-01 04:54] LABS: Glucose Point of Care 82 mg/dl (65-105)
[2021-08-01 05:34] LABS: Hematocrit 27.7 % (37.0-47.0); Hemoglobin 9.2 g/dL (12.0-15.0)
[2021-08-01 08:05] VITALS: BP 118/62; PULSE 63; RESP 18; TEMP 36.6; O2SAT 100
--- NOTE | 2021-08-01 08:23 | PM.OBPNVD ---
OB - PN: Subj Subjective Date/time seen: 08/01/21 08:23 Patient comments: no complaints, pain well controlled, tolerating diet and flatus present OB - PN: Obj Data Labs CBC & Chem 7: 08/01/21 04:56 07/30/21 00:19 Labs: Laboratory Results - last 24 hr 08/01/21 08/01/21 08/01/21 04:43 04:56 04:56 Hgb 9.2 L Hct 27.7 L POC Capillary Glucose 82 Blood Type O Negative Antibody Screen Negative Screen Negative Baby's Blood Type O pos Baby's RACIEL Negative Doses of RhIg Required 1 OB - PN A/P Plan day: 1 Comments: Post Op LTCS - no problems, routine recovery Time Spent With Patient Time: Total time spent is greater than 50% in coordination of care (as documented) at patient's floor/unit and/or counseling patient: Exam Const: General: cooperative, healthy appearing, comfortable and no acute distress Resp: Auscultation: no crackles, no rales, no rhonchi and no wheezes Cardio: Rhythm: regular rhythm Heart sounds: no click and no murmurs GI: Inspection: non-distended Auscultation: normal bowel sounds Extrem: General: normal to inspection, no pedal edema and no calf tenderness
[2021-08-01] MEDS: POLYSACCHARIDE IRON COMPLEX 150 MG CAPSULE PO ×2 (09:52→17:55)
[2021-08-01] MEDS: DOCUSATE SODIUM 100 MG CAPSULE PO ×2 (09:52→17:56)
[2021-08-01] MEDS: RHO(D) IMMUNE GLOBULIN 300 MCG/2 ML SYRINGE IM (09:54)
--- OUTSIDE RECORDS SUMMARY | 2021-08-01 13:57 | XMS_ITS | Encounter Summary ---
[...] P 9:15AM ? Ob Routine 08/05/2021 Yolie Kathya Strickland, 9:45AM CNM ? Nst 08/09/2021 Nst, , EQUI P 11:30AM ? Nst 08/16/2021 Nst, , EQUI P 11:30AM ? 1Hr on or around Rayshawn rolle [facility] 09/13/2021 MD [facility] None ? ? recorded. Referral None ? ? recorded. Procedures None ? ? recorded. Surgeries None ? ? recorded. Imaging Non-stress 07/15/2021 Demetria guzman Test Medications Name Start Date ? ? Flintstones Complete ? ondansetron 8 mg disintegrating tablet ? DISSOLVE 1 TABLET IN MOUTH TWICE DAILY pantoprazole 40 mg tablet,delayed release ? TAKE 1 TABLET BY MOUTH ONCE DAILY sertraline 25 mg tablet ? TAKE 1 TABLET BY
--- OUTSIDE RECORDS SUMMARY | 2021-08-01 13:57 | XMS_ITS | Encounter Summary ---
[...] ? Ob Routine 08/05/2021 Yolie E 9:45AM SCARLET Strickland ? Nst 08/09/2021 Nst, , EQUI P 11:30AM ? Nst 08/16/2021 Nst, , EQUI P 11:30AM ? 1Hr Glucose on or around Dm Watters 09/13/2021 MD [facility] None ? ? recorded. Referral None ? ? recorded. Procedures None ? ? recorded. Surgeries None ? ? recorded. Imaging US, 07/15/2021 [place] [facility]stetric, Biophysical Profile + Non-stress Test Medications Name Start Date ? ? Flintstones Complete ? ondansetron 8 mg disintegrating tablet ? DISSOLVE 1 TABLET IN MOUTH TWICE
--- OUTSIDE RECORDS SUMMARY | 2021-08-01 13:57 | XMS_ITS | Encounter Summary ---
[...] mg tablet ? TAKE 1 TABLET BY MOUTH ONC
--- OUTSIDE RECORDS SUMMARY | 2021-08-01 13:57 | XMS_ITS | Encounter Summary ---
[...] tablet ? TAKE 1 TABLET BY MOUTH ONCE DAILY
--- OUTSIDE RECORDS SUMMARY | 2021-08-01 13:57 | XMS_ITS | Encounter Summary ---
[...] ? 1Hr on or around Rayshawn rolle [facility] [place] 09/13/2021 MD [facility]y [facility] None ? ? [...] 1 TABLET BY MOUTH ONCE DAILY sertraline 50 mg tablet ?
--- OUTSIDE RECORDS SUMMARY | 2021-08-01 13:57 | XMS_ITS | Encounter Summary ---
[...] ? 1Hr on or around Rayshawn Ballard [facility] Glucose 09/13/2021 MD [facility] None ? ? recorded. Referral None ? ? recorded. Procedures None ? ? recorded. Surgeries None ? ? recorded. Imaging Non-stress 07/26/2021 Demetria lladiran Test Medications Name Start Date ? ? Flintstones Complete ? ondansetron 8 mg disintegrating tablet ? DISSOLVE 1 TABLET IN MOUTH TWICE DAILY pantoprazole 40 mg tablet,delayed release ? TAKE 1 TABLET BY MOUTH ONCE DAILY sertraline 25 mg tablet ? TAKE 1 TABLET BY MOUTH ONCE DAILY sertraline 50 mg tablet ?
--- OUTSIDE RECORDS SUMMARY | 2021-08-01 13:57 | XMS_ITS | Encounter Summary ---
:1995 Author Reason for Visit NST [id number] EDC 08/13/2021 LMP 11/06/2020 Assessment and Plan [...]
--- OUTSIDE RECORDS SUMMARY | 2021-08-01 13:57 | XMS_ITS | Encounter Summary ---
:1995 Author Reason for Visit NST [id number] EDC 08/13/2021 LMP 11/06/2020 Assessment and Plan 1. Chronic hypertension in obste tric context ? non-stress test Discussion Note: None recorded.Patient educational handouts: No information available. Plan of Care Reminders Provider Appointments Nst 08/02/2021 Nst, , EQ UIP 11:30AM ? Nst 08/05/2021 Nst, , EQUI P 9:15AM ? Ob Routine 08/05/2021 Yolie Rasheed Em, 9:45AM CNM ? Nst 08/09/2021 Nst, , EQUI P 11:30AM ? Nst 08/16/2021 Nst, , EQUI P 11:30AM ? 1Hr on or around Rayshawn [place]ard [place] Glucose 09/13/2021 MD [facility] None ? ? recorded. Referral None ? ? recorded. Procedures None ? ? recorded. Surgeries None ? ? recorded. Imaging Non-stress 07/19/2021 Demetria guzman Test Medications Name Start Date ? ? Flintstones Complete ? ondansetron 8 mg disintegrating tablet ? DISSOLVE 1 TABLET IN MOUTH TWICE DAILY pantoprazole 40 mg tablet,delayed release ? TAKE 1 TABLET BY MOUTH ONCE DAILY sertraline 25 mg tablet ? TAKE 1 TABLET BY MOUTH ONCE DAILY sertraline 50 m
--- OUTSIDE RECORDS SUMMARY | 2021-08-01 13:57 | XMS_ITS | Encounter Summary ---
:1995 Author Reason for Visit OB visit OB [id number] EDC 08/13/2021 LMP 11/06/2020 Assessment and Plan [...] ? 1Hr on or around Rayshawn rolle [facility] [place] 09/13/2021 MD [facility]y [facility] None ? ? [...]
--- OUTSIDE RECORDS SUMMARY | 2021-08-01 13:57 | XMS_ITS | Encounter Summary ---
[...] ? ? recorded. Imaging Non-stress 07/08/2021 Demetria guzman Test Medications Name Start Date ? ? Flintstones Complete ? ondansetron 8 mg disintegrating tablet ? DISSOLVE 1 TABLET IN MOUTH TWICE DAILY pantoprazole 40 mg tablet,delayed release ? TAKE 1 TABLET BY MOUTH ONCE DAILY sertraline 25 mg tablet ? TAKE 1 TABLET BY MOUTH O
--- OUTSIDE RECORDS SUMMARY | 2021-08-01 13:58 | XMS_ITS | Encounter Summary ---
[...] ? ? recorded. Imaging Non-stress 07/05/2021 Demetria guzman Test Medications Name Start Date ? ? Flintstones Complete ? ondansetron 8 mg disintegrating tablet ? DISSOLVE 1 TABLET IN MOUTH TWICE DAILY pantoprazole 40 mg tablet,delayed release ? TAKE 1 TABLET BY MOUTH ONCE DAILY sertraline 25 mg tablet ? TAKE 1 TABLET BY MOUTH O
--- OUTSIDE RECORDS SUMMARY | 2021-08-01 13:58 | XMS_ITS | Encounter Summary ---
[...] ? ? recorded. Imaging Non-stress 06/28/2021 Demetria guzman Test Medications Name Start Date ? ? Flintstones Complete ? ondansetron 8 mg disintegrating tablet ? DISSOLVE 1 TABLET IN MOUTH TWICE DAILY pantoprazole 40 mg tablet,delayed release ? TAKE 1 TABLET BY MOUTH ONCE DAILY sertraline 25 mg tablet ? TAKE 1 TABLET BY MOUTH O
--- OUTSIDE RECORDS SUMMARY | 2021-08-01 13:58 | XMS_ITS | Encounter Summary ---
[...] ? ? recorded. Imaging Non-stress 06/21/2021 Demetria guzman Test Medications Name Start Date ? ? Flintstones Complete ? ondansetron 8 mg disintegrating tablet ? DISSOLVE 1 TABLET IN MOUTH TWICE DAILY pantoprazole 40 mg tablet,delayed release ? TAKE 1 TABLET BY MOUTH ONCE DAILY sertraline 25 mg tablet ? TAKE 1 TABLET BY MOUTH O
--- OUTSIDE RECORDS SUMMARY | 2021-08-01 13:58 | XMS_ITS | Encounter Summary ---
:1995 Author Reason for Visit OB visit OB [id number] EDC 08/13/2021 LMP 11/06/2020 Assessment and Plan [...] ? 1Hr on or around Rayshawn rolle [facility] [place] 09/13/2021 MD Marky [facility] None ? ? [...] BY MOUTH ONCE DAILY sertraline 25 mg tab
--- OUTSIDE RECORDS SUMMARY | 2021-08-01 13:58 | XMS_ITS | Encounter Summary ---
[...] None ? ? recorded. Imaging US, 07/01/2021 [place] Obstetric, Biophysical Profile Medications Name Start Date ? ? Flintstones Complete ? ondansetron 8 mg disintegrating tablet ? DISSOLVE 1 TABLET IN MOUTH TWICE DAILY pantoprazole 40 mg tablet,delayed release ? TAKE 1 TABLET BY MOUTH ONCE DAILY sertraline 25 mg tablet ?
--- OUTSIDE RECORDS SUMMARY | 2021-08-01 13:58 | XMS_ITS | Encounter Summary ---
[...] snacks with controlled carb amounts for a mcc stable control o f blood sugar. Pt is aware an OB teamsite developer will call her next week to review [...]
--- OUTSIDE RECORDS SUMMARY | 2021-08-01 13:58 | XMS_ITS | Encounter Summary ---
:1995 Author Reason for Visit OB visit OB [id number] EDC 08/13/2021 LMP 11/06/2020 Assessment and Plan [...] BY MOUTH ONCE DAILY sertraline 25 mg table
--- OUTSIDE RECORDS SUMMARY | 2021-08-01 13:58 | XMS_ITS | Encounter Summary ---
[...] ? ? recorded. Imaging Non-stress 06/24/2021 Demetria guzman Test Medications Name Start Date ? ? Flintstones Complete ? ondansetron 8 mg disintegrating tablet ? DISSOLVE 1 TABLET IN MOUTH TWICE DAILY pantoprazole 40 mg tablet,delayed release ? TAKE 1 TABLET BY MOUTH ONCE DAILY sertraline 25 mg tablet ? TAKE 1 TABLET BY MOUTH O
--- OUTSIDE RECORDS SUMMARY | 2021-08-01 13:58 | XMS_ITS | Encounter Summary ---
[...] ? 1Hr on or around Rayshawn Ballard [facility] 09/13/2021 MD [facility]y [facility] None ? ? [...]
--- OUTSIDE RECORDS SUMMARY | 2021-08-01 13:58 | XMS_ITS | Encounter Summary ---
[...] ? 1Hr on or around Rayshawn rolle [facility] [place] 09/13/2021 MD [facility]y [facility] None ? ? recorded. Referral None ? ? recorded. Procedures None ? ? recorded. Surgeries None ? ? recorded. Imaging US, 05/19/2021 [place] Obstetric, Follow-up Medications Name Start Date ? ? Flintstones Complete ? ondansetron 8 mg disintegrating tablet ? DISSOLVE 1 TABLET IN MOUTH TWICE DAILY pantoprazole 40 mg tablet,delayed release ? TAKE 1 TABLET BY MOUTH ONCE DAILY s
--- OUTSIDE RECORDS SUMMARY | 2021-08-01 13:58 | XMS_ITS | Encounter Summary ---
[...] ? ? recorded. Imaging Non-stress 07/01/2021 Demetria guzman Test Medications Name Start Date ? ? Flintstones Complete ? ondansetron 8 mg disintegrating tablet ? DISSOLVE 1 TABLET IN MOUTH TWICE DAILY pantoprazole 40 mg tablet,delayed release ? TAKE 1 TABLET BY MOUTH ONCE DAILY sertraline 25 mg tablet ? TAKE 1 TABLET BY MOUTH O
--- OUTSIDE RECORDS SUMMARY | 2021-08-01 13:58 | XMS_ITS | Encounter Summary ---
[...] None ? ? recorded. Imaging US, 06/24/2021 [place] Obstetric, Follow-up Medications Name Start Date ? ? Flintstones Complete ? ondansetron 8 mg disintegrating tablet ? DISSOLVE 1 TABLET IN MOUTH TWICE DAILY pantoprazole 40 mg tablet,delayed release ? TAKE 1 TABLET BY MOUTH ONCE DAILY s
--- NOTE | 2021-08-01 19:02 | PC.NURSE ---
1315 Called out and stated her R calf was painful but not sharp shooting. No redness, swelling or warmth noted. Instructed for her to call out if it gets worse. She V/U'd.
[2021-08-01 19:35] VITALS: BP 120/72; PULSE 60; PULSE 68; RESP 16; TEMP 36.7; O2SAT 100; O2SAT 99
[2021-08-01 23:30] VITALS: BP 115/73; PULSE 60; RESP 16; TEMP 36.7; O2SAT 100
[2021-08-02] MEDS: IBUPROFEN 600 MG TABLET PO ×2 (03:34→10:04)
[2021-08-02 03:35] VITALS: BP 116/71; PULSE 64; RESP 16; TEMP 36.6; O2SAT 100
[2021-08-02 08:40] VITALS: BP 121/61; PULSE 70; RESP 16; TEMP 36.4; O2SAT 100
[2021-08-02] MEDS: DOCUSATE SODIUM 100 MG CAPSULE PO (10:04)
[2021-08-02] MEDS: POLYSACCHARIDE IRON COMPLEX 150 MG CAPSULE PO (10:06)
--- NOTE | 2021-08-02 10:18 | P.PNOB_ITS ---
OB - PN: Subj Subjective Date/time seen: 08/02/21 10:18 Patient comments: no complaints, pain well controlled and tolerating diet OB - PN: Obj Data Labs CBC & Chem 7: 08/01/21 04:56 07/30/21 00:19 OB - PN A/P Plan day: 2 Plan: routine care and discharge home Time Spent With Patient Time: Total time spent is greater than 50% in coordination of care (as docume nted) at patient's floor/unit and/or counseling patient: Exam Const: General: comfortable and no acute distress Resp: Effort & Inspection: normal respiratory effort Auscultation: no rales, no rhonchi and no wheezes Cardio: Rate: regular rate Heart sounds: no click, no murmurs and no rubs GI: GI Palp: Yes Soft to palpation and No Tenderness to palpation present (GI) Auscultation: normal bowel sounds Extrem: General: normal to inspection, no pedal edema and no calf tenderness
--- NOTE | 2021-08-02 10:20 | PM.OBDSVD ---
DS: Admitting Diagnosis Discharge Date 08/02/2021 Admitting Diagnosis term gestation DS: Discharge Diagnosis Discharge Diagnosis (1) Term delivered: Code(s): O80 - Encounter for full-term uncomplicated delivery Status: Acute OB - DS: Summary OB Procedures : None OB Procedures Intrapartum: Spontaneous Vag Delivery OB Procedures: : None Time Spent with Patient Time attestation: Total time spent providing and/or coordinating discharge services: DS: Data Data Completed and Pending Pending studies at discharge: Pending at discharge 07/31/21 07:51 Surgical [PTH] Routine Discharge Plan Discharge Discharging Clinician: Adeel Negro Patient Disposition: Home, Self-Care Activity: pelvic rest Diet: regular Patient Instructions: Antibiotic Form Stand Alone Forms: General Discharge Information Follow-up/Referrals: Adeel Negro MD [Physician] - Discharge Medications: Continued pantoprazole [Protonix] 40 mg tablet,delayed release (DR/EC) See Rx Instructions .ROUTE .COMPLEX RF: 0 sertraline [Zoloft] 50 mg tablet See Rx Instructions .ROUTE .COMPLEX RF: 0 Date of admission: 07/30/21 00:06 Primary Care Provider: UNKNOWN,DOCTOR Admitting Provider: Adeel Negro Attending physician on admission: Adeel Negro Condition: Stable
--- NOTE | 2021-08-02 20:23 | PC.NURSE ---
1030 Patient viewed the discharge video Mother & Baby Care, The First Two Weeks . Patient was given the opportunity and encouraged to ask questions. Patient verbalized understanding of information shared and has been given the mother/baby guide for home reference.
[2021-08-03 10:33] VITALS: BP 132/74; PULSE 84; RESP 20; TEMP 36.8; O2SAT 100
== END 2021-08-02 15:15 | disposition home or self-care (01) | DRG 560 ==
LOC: ANHLDR 08-01 13:54 → ANHOB2 08-01 13:54
PROVIDERS: Advanced Practice Midwife; Admitting Provider Obstetrics & Gynecology; Visit Provider Obstetrics & Gynecology
DX: O10.92 Unspecified pre-existing hypertension complicating childbirth (principal); Z37.0 Single live birth; Z3A.38 38 weeks gestation of pregnancy; O24.429 Gestational diabetes mellitus in childbirth, unspecified control; O69.1XX0 Labor and delivery complicated by cord around neck, with compression, not applicable or unspecified
CPT/HCPCS: 36415; 80053; 82948; 84550; 85014; 85018; 85025; 85461; 86592; 86703; 86850; 86900; 86901; 88307; 90384; 90715; A9270; G0432; J2370; J2405; J2590; J2790; J2795; J7120

== ENCOUNTER 2021-11-18 16:31 | Emergency (ER) | payer OTHER, SELFPAY ==
--- NOTE | 2021-11-18 16:35 | ED.EYEPROB ---
HPI - Eye Problem General Chief complaint: Eye Problems Stated complaint: left eye Time Seen by Provider: 11/18/21 16:35 Source: patient and RN notes reviewed History of Present Illness HPI Narrative: Patient is a 26-year-old female who presents the urgent care with complaints of drainage, swelling and redness of the left eye. Patient states that she has been using her sister's prescription of Polytrim for the last 6 days without any improvement. Patient does take a daily antihistamine. Denies of any vision changes, trauma or injury to the eye. No other acute complaints. No acute distress noted. Patient aware of the plan of care. Some parts of this dictation were generated by voice recognition software and may contain typographical and/or grammatical inaccuracies. Related Data Allergies Allergy/AdvReac Type Severity Reaction Status Date / Time diphenhydramine AdvReac Unknown Hyperactive Verified 07/30/21 02:07 Review of Systems Review of Systems: CONSTITUTIONAL: Denies fever, chills, or sweats. EYES: Reports of discharge, swelling and redness to the left eye ENT: Denies rhinorrhea, congestion, sore throat, or otalgia. CARDIOVASCULAR: Denies chest pain, palpitations, or edema. RESPIRATORY: Denies cough or dyspnea. GASTROINTESTINAL: Denies abdominal pain, nausea, vomiting, or diarrhea. GENITOURINARY: Denies dysuria or hematuria. SKIN: Denies rash or itching. MUSCULOSKELETAL: Denies back pain, joint pain, or myalgia. NEUROLOGIC: Denies headache, numbness, or weakness. All other systems reviewed are negative, except as documented in HPI. [facility] Past Medical History Medical History (Updated 11/18/21 @ 17:09 by LING Albert) Asthma as a child, no inhaler use as an adult Constipation Gestational diabetes IUP (intrauterine ), incidental Surgical History Surgical History History of appendectomy History of cholecystectomy Family History Family History (Updated 07/30/21 @ 01:24 by Yoselin Wagoner RN) Mother No pertinent past medical history Other Cancer Diabetes mellitus Hypertension Social History Social History Smoking status: Never smoker Second hand tobacco smoke exposure: No Substance use: never Gender identity (if verbalized by the patient): Female Sexual Orientation (if Verbalized by the Patient): Straight or Heterosexual Spiritual care concerns: No Comments At the time of my signature, I reviewed and agree with the nursing past medical, surgical, social, and family history. There is no relevant family history pertinent to the patient complaint. Exam Narrative: GENERAL: This is a well-nourished, well-developed patient, in no apparent distress. HEAD: normocephalic, atraumatic. EYES: PERRL. Right sclera clear/white. Vision is grossly intact. Left moderately injected sclera/conjunctiva with thick yellow drainage and mild surrounding edema/erythema. No obvious trauma or injury to the left eye. EARS: External ears normal NOSE: External nose normal with no obvious nasal discharge, nares without redness, no rhinorrhea. THROAT: Mucous membranes moist NECK: Neck supple CARDIOVASCULAR: Regular rate and rhythm without murmurs, gallops, or rubs. RESPIRATORY: Clear to auscultation. Breath sounds equal bilaterally. No wheezes, rales, or rhonchi. SKIN: warm, intact with no suspicious lesions or rash, good texture and turgor. NEURO: awake, alert, and oriented to person, place and time. There were no obvious focal neurologic abnormalities. EXTREMITIES: No clubbing, cyanosis, or edema. Course Course Level of Care: Express Care Visit Vital Signs Vital signs: Vital Signs Temperature 99.1 F 11/18/21 17:11 Pulse Rate 80 11/18/21 17:11 Respiratory Rate 20 11/18/21 17:11 Blood Pressure 114/50 L 11/18/21 17:11 Pulse Oximetry 100 11/18/21 17:11 Oxygen
[2021-11-18 17:11] VITALS: BP 114/50; PULSE 80; RESP 20; TEMP 37.3; O2SAT 100
== END 2021-11-18 17:19 | disposition home or self-care (01) ==
PROVIDERS: Emergency Provider Nurse Practitioner Family
DX: H10.9 Unspecified conjunctivitis (principal); J45.909 Unspecified asthma, uncomplicated
CPT/HCPCS: 99213; A9270; G0463

== ENCOUNTER → 2022-01-11 15:02 | Outpatient (CLI) | payer OTHER, SELFPAY ==
--- NOTE | ~2022-01-11 | US_ITS ---
US breast LT complete INDICATION: Family history of breast cancer. Left breast tenderness. TECHNIQUE: Dedicated complete left breast ultrasound including all 4 quadrants in the subareolar loca tion COMPARISON: No prior studies for comparison. FINDINGS: The left breast is composed of normal heterogeneous echotexture without focal solid or cyst ic mass. There are normal-appearing lymph nodes in the left axilla with normal fatty hilum, largest m easuring up to 1 cm. IMPRESSION: 1: Normal left breast ultrasound. BI-RADS CATEGORY 1 - NEGATIVE Reviewed, dictated and finalized at location A.
== END ==
PROVIDERS: Visit Provider Nurse Practitioner Obstetrics & Gynecology
DX: N64.4 Mastodynia (principal); N63.32 Unspecified lump in axillary tail of the left breast
CPT/HCPCS: 76641

== ENCOUNTER 2022-09-07 11:21 | Emergency (ER) | payer OTHER, SELFPAY ==
[2022-09-07 11:35] VITALS: BP 118/68; PULSE 73; RESP 16; TEMP 36.8; O2SAT 99
--- NOTE | 2022-09-07 12:09 | ED.URI ---
HPI - URI/Sore Throat General Chief Complaint: Upper Respiratory Infection Stated Complaint: Sore Throat/Ear Pain Time Seen by Provider: 09/07/22 11:59 Source: patient Mode of arrival: ambulatory Limitations: no limitations History of Present Illness HPI Narrative: Patient presents today complaining of right ear pain x5 days mild sore throat head pressure, headache. She has been taking Sudafed, nose spray, Tylenol with mild relief. She did a COVID-19 test yesterday that was negative. Denies congestion or rhinorrhea. Related Data Home Medications Medication Instructions Recorded Confirmed escitalopram oxalate 10 mg tablet 10 mg PO DAILY 09/07/22 09/07/22 phentermine 15 mg capsule 15 mg PO DAILY 09/07/22 09/07/22 topiramate 50 mg tablet 50 mg PO BID 09/07/22 09/07/22 Allergies Allergy/AdvReac Type Severity Reaction Status Date / Time diphenhydramine AdvReac Unknown Hyperactive Verified 07/30/21 02:07 Review of Systems Review of Systems: CONSTITUTIONAL: Denies body aches, fever, chills, or sweats. EYES: Denies visual changes, redness, or discharge. ENT: Denies rhinorrhea, congestion. + sore throat or, right ear pain, head pressure CARDIOVASCULAR: Denies chest pain, palpitations, or edema. RESPIRATORY: Denies cough or dyspnea. GASTROINTESTINAL: Denies abdominal pain, nausea, vomiting, or diarrhea. GENITOURINARY: Denies dysuria or hematuria. SKIN: Denies rash, itching, or wounds. MUSCULOSKELETAL: Denies back pain, joint pain, or myalgia. NEUROLOGIC: Denies numbness, tingling, or weakness.+ headache PSYCH: Denies depression or anxiety. [facility] Past Medical History Medical History Asthma as a child, no inhaler use as an adult Constipation Gestational diabetes IUP (intrauterine ), incidental Surgical History Surgical History History of appendectomy History of cholecystectomy Family History Family History Mother No pertinent past medical history Other Cancer Diabetes mellitus Hypertension Social History Social History Smoking status: Never smoker Second hand tobacco smoke exposure: No Substance use: never Gender identity (if verbalized by the patient): Female Sexual Orientation (if Verbalized by the Patient): Straight or Heterosexual Spiritual care concerns: No Comments At time of signature, I have reviewed and agree with nursing past medical, surgical, social and family history unless otherwise noted. Please see nursing chart for further information. There is no relevant family history pertinent to the presenting complaint Exam Narrative: GENERAL: Well-appearing, well-nourished, and in no acute distress. HEAD: Normocephalic, atraumatic. EYES: EOMI. No redness or drainage. Conjunctivae normal. ENT: Mucous membranes pink and moist. Nares clear. No rhinorrhea. Left TM normal. Right TM retracted without evidence of bacterial infection. Throat normal with small amount of postnasal drainage. Uvula midline. NECK: Normal AROM. Supple. No lymphadenopathy. CHEST: No respiratory distress. Clear to auscultation. HEART: Regular rate and rhythm. No murmur appreciated. EXTREMITIES: Normal range of motion. No edema. SKIN: Warm, dry, no rash. Capillary refill normal. Normal skin turgor. NEURO: No focal deficits. Alert and oriented x3. Gait steady. PSYCH: Normal affect. No signs of depression or anxiety. Course Course Level of Care: Express Care Visit Vital Signs Vital signs: Vital Signs Temperature 98.2 F 09/07/22 11:35 Pulse Rate 73 09/07/22 11:35 Respiratory Rate 16 09/07/22 11:35 Blood Pressure 118/68 09/07/22 11:35 Pulse Oximetry 99 09/07/22 11:35 Oxygen Delivery Room Air 09/07/22 11:35 Temperature 98.2 F
== END 2022-09-07 12:20 | disposition home or self-care (01) ==
PROVIDERS: Emergency Provider Nurse Practitioner
DX: J30.2 Other seasonal allergic rhinitis (principal); H73.891 Other specified disorders of tympanic membrane, right ear
CPT/HCPCS: 99213; G0463

== ENCOUNTER 2024-10-15 09:36 | Emergency (ER) | payer OTHER, SELFPAY ==
--- OUTSIDE RECORDS SUMMARY | 2024-10-15 09:53 | XMS_ITS | Referral Summary ---
Author Organization [facility] Address [address] [place] [address] Care Team Providers Care Director Of Student Services Name Role Phone Nestor Soares MD Primary Care Provider [phone] Matt Clarke MD Unavailable [phone] Allergies No known active allergies Medications omeprazole (PriLOSEC) 20 mg capsule Take by mouth nightly Active BD LUER-MARTINEZ SYRINGE 3 mL 25 gauge x 1 syringe USE WITH VITAMIN B SOLUTION MONTHLY 0 10/29/19 19 Active cyanocobalamin (Vitamin B-12) 1,000 mcg/mL injection cyanocobalamin (vit B-12) 1,000 mcg/mL injection solution monthly Active ibuprofen (ADVIL,MOTRIN) 400 mg tabletIndication s:stop for surgery Take 400 mg by mouth every 6 (six) hours as needed for pain Active escitalopram (LEXAPRO) 5 mg tablet escitalopram 5 mg tablet Active influenza quadrivalent 4334-5669 (FLUZONE QUAD 1090-0967, PF,) 60 mcg (15 mcg x 4)/0.5 mL syringe Fluzone Quad 2271-4102 (PF) 60 mcg (15 mcg x 4)/0.5 mL IM syringe Active HYDROcodone-acet aminophen (VICODIN) 5-300 mg per tablet hydrocodone 5 mg-acetaminophen 300 mg tablet Active hydrOXYzine (ATARAX) 25 mg tablet hydroxyzine HCl 25 mg tablet Active metroNIDAZOLE (FLAGYL) 500 mg tablet metronidazole 500 mg tablet Active oxyCODONE-acetam inophen (PERCOCET) 5-325 mg per tablet oxycodone-acetamin ophen 5 mg-325 mg tablet Active triazolam (HALCION) 0.25 mg tablet triazolam 0.25 mg tablet Active valACYclovir (VALTREX) 1 gram tablet TK 1 T PO Q 12 H FOR 1 DAY 1 03/10/20 19 Active dicyclomine (BENTYL) 10 mg capsuleIndicatio ns:Abdominal Pain with Cramps Take 1 capsule (10 mg total) by mouth 3 (three) times a day before meals 90 capsule 1 03/14/20 19 Active ondansetron (ZOFRAN) 4 mg tablet Take 1 tablet (4 mg total) by mouth every 8 (eight) hours as needed for nausea or vomiting 20 tablet 03/22/20 20 Active Active Problems Problem Noted Date Diagnosed Date 01/28/2021 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 Patient had previous work up with EGD, benign. HIDA scan with ef at 35%. Patient and family educated on procedure, risks, benefits, and post operative period to which they all agree. Patient would like to go forward with tammi stevenson, and has plans to continue follow up with GI after surgery. Nausea and vomiting 10/18/2018 Overview (10/18/2018): Added automatically from request for surgery [id number] Assessment & Plan (03/14/2019 11:53 AM CDT): She has had EGD in past that was negative. Possibly functional vs. Related to heartburn symptoms. She is on omeprazole 20mg nightly. Will re-evaluate in a couple of months to see how this is doing. Assessment & Plan (01/03/2019 11:28 AM CDT): Has resolved since starting reglan 5mg. Pt states she is taking this BID. Assessment & Plan (11/08/2018 11:47 AM CDT): Possible this is related to GERD vs. Functional. EGD was unremarkable. Gallbladder workup negative. Denies marijuana use. Instructed patient to pickle processor pantoprazole 40 mg and stop the omeprazole 20mg. She is to take this 45 min to 1 hour prior to meals. Told patient that if she has breakthrough symptoms in evening can do OTC Zantac. Continue Reglan 5mg TID about 30 minutes prior to meals. Denies any side effects from Reglan. She was given zofran to take prn nausea. Will f/u in 1 month to see if her symptoms have improved. Upper abdominal pain 10/08/2018 Assessment & Plan (03/14/2019 11:52 AM CDT): Overall feeling much better after gallbladder was taken out but now having cramping in upper abdomen with BM's. Pain occurs with BM's and subsides after. Likely due to functional pain. Will have her try bentyl TID prior to meals. Re-evaluate in 2 months. Assessment & Plan (01/03/2019 11:27 AM CDT): Pt having cramping pain in RUQ that occurs about 30 minutes after eating meals. Pt says she has changed to healthier diet but has not noticed a difference. Bentyl seemed to help somewhat but not completely resolving symptoms. Order for HIDA scan placed. Will call in [facility] to see if this helps with cramping. Assessment & Plan (11/08/2018 11:43 AM CDT): Has mild tenderness in epigastric region with palpation. Will have her start pantoprazole 40mg Q AM. Assessment & Plan (10/08/2018 4:53 AM CDT): Patient having crampy and burning pain. It is in her epigastric and right upper quadrant. Patient has a history of GERD and use take Nexium but has not done so in over a year. Will order patient PPI. Will order p.r.n. Bentyl for cramping. Patient does have right upper quadrant tenderness palpation and had nausea and vomiting through the weekend. Will order ultrasound of gallbladder rule out gallbladder pathology. LFTs are normal. Continue to monitor. Dizziness 10/08/2018 Assessment & Plan (10/08/2018 4:55 AM CDT): Likely due to volume depletion as patient had nausea vomiting through the weekend and was unable to tolerate p.o.. She is feeling better after IV fluids. Continue with IV fluids. Obesity (BMI 35.0-39.9 without comorbidity) 09/19 Assessment & Plan (10/08/2018 4:53 AM CDT): Patient will need to be counseled on the importance of maintaining a healthy body weight Acute cystitis without hematuria 10/08/2018 Assessment & Plan (10/08/2018 4:56 AM CDT): No dysuria, hematuria, urinary frequency or strong odors her urine however she has suprapubic tenderness to palpation which is unusual. Will continue with ceftriaxone. Anxiety and depression 10/08/2018 Assessment & Plan (10/08/2018 4:54 AM CDT): Continue SSRI Arrhythmia 10/08/2018 Assessment & Plan (10/08/2018 4:56 AM CDT): Patient seems to have episodic bradycardia. She seems to be asymptomatic. Will check an EKG. Chronic constipation 10/03/2018 Assessment & Plan (01/03/2019 11:30 AM CDT): Was using Miralax but recently caused more diarrhea so stopped. Now having harder stools again. Instructed to take colace daily and use miralax prn. Pt having small amount of bright red blood in stool about once a week. Pt has history of issues with constipation, no weight loss, no lower abdominal pain, appetite doing well, and imaging done in September 2018 was unremarkable. I think this is likely due to hemorrhoids. Assessment & Plan (11/08/2018 11:43 AM CDT): Improved with Miralax daily. She is now having about 2 normal BM's a day. Assessment & Plan (10/08/2018 4:55 AM CDT): Patient is on daily MiraLax. Her last bowel movement was yesterday. TSH was checked on 09/24/2018 by her PCP and was 1.7. No need to repeat. Assessment & Plan (10/03/2018 9:50 AM CDT): Experiences abdominal pain when severely constipated. Currently taking Miralax 1 capful daily and laxatives prn. Recently increased fiber and fluid intake. Use Miralax 2 capfuls daily, stop laxatives, continue to eat high fiber diet and can try fiber gummies, and continue to increase fluid intake. F/U in 3 months. Will consider Linzess if this regimen does not achieve improvement in BM's. Heartburn 10/03/2018 Assessment & Plan (01/03/2019 11:27 AM CDT): Taking pantoprazole at bedtime which she says helps prevents symptoms. May continue this. Assessment & Plan (10/08/2018 4:57 AM CDT): Patient has a history of GERD and was on Nexium for a long time but stopped taking it in over a year as she did not feel like it was helping. Will resume PPI. Assessment & Plan (10/03/2018 9:50 AM CDT): Pt has intermittent heartburn and takes Zantac which relieves her symptoms. She does have tenderness in epigastric region with palpation. Will have her take Zantac 300mg QD for a few months and re-evaluate symptoms and tenderness in epigastric region. Discussed importance of following GERD diet. Carbuncle 03/30/2017 Breast lump 11/27/2016 test negative 02/05/2013 Immunizations Immunization Administration Dates Next Due Tdap 10/01/2022(Deferred: Patient Refused - Pt reports that she is updated on her TDAP 08/04/2021) Social History Tobacco Use Types Packs/Day Years Used Date Smoking Tobacco: Never Smokeless Tobacco: Never Alcohol Use Standard Drinks/Week Comments Yes 0 (1 standard drink = 0.6 oz pur e alcohol) rarely PHQ-2 Answer Date Recorded PHQ-2 Score 0 01/09/2019 Personal Safety Answer Date Recorded Have you ever been in or are you currently in a harmful physical or emotional relationship or is someone making you feel afraid or unsafe? 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 Gender Identity Not on file Sexual Orientation Not on file Last Filed Vital Signs Vital Sign Reading Time Taken Comments Blood Pressure 129/61 10/01/2022 6:35 PM CDT Pulse 69 10/01/2022 6:35 PM CDT Temperature 36.8 C (98.2 F) 10/01/2022 6:35 PM CDT Respiratory Rate 18 10/01/2022 6:35 PM CDT Oxygen Saturation 99% 10/01/2022 6:35 PM CDT Inhaled Oxygen Concentration - - Weight 104.3 kg (230 lb) 10/01/2022 4:25 PM CDT Height 160 cm (5' 3) 10/01/2022 4:25 PM CDT Body Mass Index 40.74 10/01/2022 4:25 PM CDT Plan of Treatment Not on file Insurance [facility] Advance Directives For more information, please contact: [phone] * Full Code (Latest Code Status on File) Date Activated Date Inactivated Comments 10/30/2018 7:23 AM 10/30/2018 1:48 PM * Full Code Date Activated Date Inactivated Comments 10/30/2018 7:23 AM 10/30/2018 7:23 AM * Full Code Date Activated Date Inactivated Comments 10/07/2018 3:44 PM 10/09/2018 7:03 PM Care Teams Director Of Student Services Relationship Specialty Start Date End Date Nestor Soares MD [address] [place] [address] PCP - General 10/19/17 Matt Clarke MD [address] [place] [address] Consulting Physician Gastroenterology 10/09/18
--- OUTSIDE RECORDS SUMMARY | 2024-10-15 09:53 | XMS_ITS | Clinical Summary ---
Author Organization [facility] Address [address] [place] [address] Care Team Providers Care Cement Mason Maintenance Name Role Phone Unavailable Primary Care Provider Unavailabl e Source Comments [facility],non-owned Affiliates and Associated Physician Practices is amultiple site organization consisting of ambulatory clinics and hospital sitesin [place], [place], [place]. This disclosure is being madepursuant to the Care Everywhere program and may not contain all information available regarding this patient. Last updated [facility] Allergies Active Allergy Reactions Criticality Noted Date Comments Diphenhydramine Other 03/12/2017 Medications * Be aware that medications may not be up to date on this document. Alwaysverify current medications with the patient. OtherIndications :unknown name of depression medication Reasons: unknown name of depression medication Active albuterol HFA (PROVENTIL;MARLINE AILEEN;PROAIR) 108 (90 BASE) MCG/ACT inhalerIndicatio ns:Asthma with acute exacerbation, unspecified asthma severity, unspecified whether persistent (HCC) Inhale 2 puffs by mouth every 6 hours as needed 1 Inhaler 7 Active benzonatate (TESSALON) 200 MG capsuleIndicatio ns:Asthma with acute exacerbation, unspecified asthma severity, unspecified whether persistent (HCC),Acute URI Take 1 capsule by mouth 3 times daily as needed for Cough 30 capsule 7 Active Social History Tobacco Use Types Packs/Day Years Used Date Smoking Tobacco: Never Smokeless Tobacco: Never Comments Unknown Sex and Gender Information Value Date Recorded Sex Assigned at Not on file Legal Sex Female 5:38 AM ENTREPRENEUR Gender Identity Not on file Sexual Orientation Not on file Last Filed Vital Signs Vital Sign Reading Time Taken Comments Blood Pressure 108/66 03/12/2017 12:47 PM CDT Pulse 101 03/12/2017 12:47 PM CDT Temperature 36.9 C (98.5 F) 03/12/2017 12:47 PM CDT Respiratory Rate 16 03/12/2017 12:47 PM CDT Oxygen Saturation 99% 03/12/2017 12:47 PM CDT Inhaled Oxygen Concentration - - Weight 81.6 kg (180 lb) 03/12/2017 12:47 PM CDT Height 160 cm (5' 3) 03/12/2017 12:47 PM CDT Body Mass Index 31.89 03/12/2017 12:47 PM CDT Plan of Treatment Health Maintenance Due Date Last Done Comments HIV SCREENING 2008 HEPATITIS C SCREENING 08/20/2011 DTAP/TDAP/TD VACCINES (1 - Tdap) 2012 HEPATITIS B VACCINE (1 of 3 - 19+ 3-dose series) 2012 COVID-19 VACCINE ( - 2023-2 5 season) 2024 DEPRESSION SCREENING 05/21/2024 INFLUENZA VACCINE (Season Ended) 2025 ZOSTER VACCINE (1 of 2) 08/25/2043 HIB VACCINE Aged Out No longer eligi ble based on patient's age to complete this topic HPV VACCINE Aged Out No longer eligi ble based on patient's age to complete this topic MENINGOCOCCAL (Group B) VACC INE SHARED DECISION-MAKING Aged Out No longer eligibl e based on patient's age to complete this topic MENINGOCOCCAL GROUPS A/C/Y/W VACCINE Aged Out No longer eligible b ased on patient's age to complete this topic PNEUMOCOCCAL VACCINE Aged Out No long er eligible based on patient's age to complete this topic Insurance [facility]
--- OUTSIDE RECORDS SUMMARY | 2024-10-15 09:53 | XMS_ITS | Clinical Summary ---
Author Organization [facility] Address [address] [place] [address] Care Team Providers Care Elect Equip Maint Eng Name Role Phone Nestor Soares MD Primary Care Provider [phone] Matt Clarke MD Unavailable [phone] Allergies No known active allergies Medications omeprazole [...] escitalopram 5 mg tablet Active influenza quadrivalent 6182-5046 (FLUZONE QUAD 3304-7418, PF,) 60 mcg (15 mcg x 4)/0.5 mL syringe Fluzone Quad 1291-5222 (PF) 60 mcg (15 mcg x 4)/0.5 [...] (01/15/2019): Added automatically from request for surgery [id number] Assessment & Plan (01/21/2019 3:13 PM CDT): Symptoms arise after eating as well as in the evening in bed. Patient had previous work up with EGD, benign. HIDA scan with ef at 35%. Patient and family educated on procedure, risks, benefits, and post operative period to which they all agree. Patient would like to go forward with tammi setvenson, and has plans to continue follow up with GI after surgery. Nausea and vomiting 10/18/2018 Overview (10/18/2018): Added automatically from request for surgery [id number] Assessment & Plan (03/14/2019 11:53 AM CDT): [...] negative. Denies marijuana use. Instructed patient to cook pickled meat pantoprazole 40 mg and stop the omeprazole [...] for HIDA scan placed. Will call in [facility] to see if this helps with cramping. [...] she is updated on her TDAP 08/04/2021) Surgical History Surgery Date Site/Laterality Comments TONSILLECTOMY 05/21/2006 - 05/20/2007 APPENDECTOMY 05/21/2009 - 05/20/2010 Medical History Medical History Date Comments Anorexia nervosa (HCC) Constipation GERD (gastroesophageal reflux disease) Family History Medical History Relation Name Comments Addiction problem Father Colon cancer Maternal Grandmother Leukemia Maternal Grandmother Colon cancer Mother's Brother Relation Name Status Comments Father Maternal Grandmother Mother's Brother Social History Tobacco Use Types Packs/Day Years [...] on file 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 Gender Identity Not on file Sexual Orientation Not on file Obstetrics History Para Term AB IAB SAB Ectopic Multiple Livin g Live Births 1 Date Outcome GA Total Labor Labor/2nd/3rd Weight Sex Type Anes PTL Deborah A1 A5 Name Clin Last Filed Vital Signs Vital Sign Reading [...] 10/01/2022 4:25 PM CDT Plan of Treatment Health Maintenance Due Date Last Done Comments Cervical Cancer Screening 1993 Hepatitis C Screening 1993 DTaP/Tdap/Td Vaccine (3 - Tdap) 2004 01/19/1994, 1993 Varicella Vaccines (1 of 2 - 13+ 2-dose series) 2006 Regular Well Visit/Exam 18-64 08/25/2011 Depression Screening 11/09/2019 11/08/2018, 11/08/2018, 10/07/2018 Influenza Vaccine (Season Ended) 2025 02/28/2019 Hepatitis B Screening Completed 1993 HPV Vaccines Aged Out No longer eligi ble based on patient's age to complete this topic Pneumococcal vaccine <65 Aged Out No longer eligible based on patient's age to complete this topic Insurance [facility] Advance Directives For more information, please contact: [phone] * Full Code (Latest Code Status on File) Date Activated Date Inactivated Comments 10/30/2018 7:23 AM 10/30/2018 1:48 PM * Full Code Date Activated Date Inactivated Comments 10/30/2018 7:23 AM 10/30/2018 7:23 AM * Full Code Date Activated Date Inactivated Comments 10/07/2018 3:44 PM 10/09/2018 7:03 PM Care Teams Elect Equip Maint Eng Relationship Specialty Start Date End Date Nestor Soares MD [address] [place] [address] PCP - General 10/19/17 Matt Clarke MD [address] [place] [address] Consulting Physician Gastroenterology 10/09/18
--- OUTSIDE RECORDS SUMMARY | 2024-10-15 09:54 | XMS_ITS | Clinical Summary ---
Author Organization [facility] Address [address] [address] Phone Care Team Providers Care Escalator Service Mechanic Name Role Phone Unavailable Primary Care Provider Unavailabl e Social History Tobacco Use Types Packs/Day Years Used Date Smoking Tobacco: Never Assessed Comments Unknown Sex and Gender Information Value Date Recorded Sex Assigned at Not on file Legal Sex Female 7:54 PM CDT Gender Identity Not on file Sexual Orientation Not on file Plan of Treatment Health Maintenance Due Date Last Done Comments Hepatitis C Virus (HCV) Screening 1993 TdaP Immunization 1993 Hepatitis B Immunization (1 of 3 - 19+ 3-dose series) 2012 Pap Smear 2014 Cervical Cancer Screening (CCS) 08/25/2023 HPV/Cotest 08/25/2023 Influenza Immunization (#1) 2024 SARS-COV-2 Immunization ( season) 2024 Respiratory Syncytial Virus (RSV) Immunization (Adult) (1 - 1-dose 75+ series) 2068 Meningococcal Immunization (ACWY) Aged Out No longer eligible based on patient's age to complete this topic Pneumococcal Immunization Combined Aged Out No longer eligible based on patient's age to complete this topic Rotavirus Immunization Aged Out No lo nger eligible based on patient's age to complete this topic
--- OUTSIDE RECORDS SUMMARY | 2024-10-15 09:54 | XMS_ITS | Data Portability ---
Author Organization [facility] [place] Address [address] [place] [address] [place] [address] Assessment Encounter Date Assessment Date Assessment LastModified by Organization Details LastModified Time 11/22/2022 11/22/2022 Annual gynecological exam performed. Patient will come back in a year unless there are new symptoms. [email or web address] Not available 11/22/2022 12:51:23 Plan of Treatment Reminders Order Date Submit Date Provider Last Modified By Organization Details Last Modified Time Details Appointments None recorded . Lab CT + NG + TV, RNA, unspecif ied specimen 2024 025 [facility] (Lab), [address], [place], [address], 15:49:31 pregnanc y test, urine 2024 025 [facility], [address], [address], [place], [address], 14:56:44 Referral None recorded . Procedures None recorded . Surgeries None recorded . Imaging US, breast, unilater al, w/ axilla 2021 022 [facility], [address], [place], [address], 16:54:50 Medication Orders Nexplano n 68 mg subderma l implant [address] [facility], [address] [place], [address], 5 15:22:13 sertrali ne 50 mg tablet 2022 023 [facility], [address] [place] [address], [address], 3 13:56:06 hydroxyz ine HCl 50 mg tablet 2022 023 [facility], [address] [place] [address], [address], 3 13:58:20 phenterm ine 15 mg capsule 2022 023 [facility], [address] [place] [address], [address], 3 18:18:37 topirama te 50 mg tablet 2022 023 [facility], [address] [place] [address], [address], 3 12:52:37 topirama te 50 mg tablet 2022 023 [facility], [address] [place], [address], 3 12:52:37 phenterm ine 15 mg capsule 2022 023 [facility], [address] [place], [address], 3 18:24:33 Lexapro 10 mg tablet 2021 022 [facility], [address] [place] [address], [address], 3 13:55:30 Patient TargetsNo targets recorded. Patient InstructionsNo instructions recorded. Reason for Referral None Reported. 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 Elect nina judd johny d by Sarah Murry, CT on 023 at 2:41 PM ----- ----- ----- ----- ----- ----- ----- ----- ----- ----- ----- ----- ----- ----- ----- ----- ----- ---- COMME NT: This speci men was revie wed by a Cytot echno logis t and/o r Patho logis t (as indic ated in this repor t) after evalu ation using the Thinp rep Imagi ng Syste m. CLINI DANA INFOR MATIO N: Menst rual Statu s: LMP (if appli cable ): Clini dana Histo ry/Pr eviou s Pap: Type of Neopl michael (if appli cable ): Signi fican t Clini dana Findi ngs: Other Histo ry: Hormo ana (if appli cable ): PAP EDUCA GISELE L NOTE: The Pap Test is a scree brayan test with an inher ent false negat zandra rate. Liqui d-bas ed sampl ing may decre ase, but will not elimi cornelio, false negat zandra resul ts. A negat zandra resul t does not precl ude the prese nce and/o r devel opmen t of disea se, since the prese nce of abnor mal cells in the sampl e depen ds on the locat ion of the lesio n and sampl ing techn ique. Juan nued regul ar scree brayan is the best metho d of cance r preve ntion . If repor enriqueta cytol ogic findi ng do not corre late with physi dana and/o r histo rical findi ngs, furth er inves tigat ion is recom mayra d, as clini adi holcomb nted. Not Available [facility] (Lab) [address], [place], [address], 11/23/2022 15:44:09 10/15/19 25 10/14/2024 pregn macario test, urine HCG negati ve Not Available [facility] [address], [place], [address], 10/14/2024 14:56:38 01/12/20 22 01/11/2022 US, tran ruiz , w/ axill a No observ ation record ed. [facility] [address], [place], [address], 01/19/2022 10:25:26 01/12/20 22 01/11/2022 , jamie tong, tran rosas , w/ axill a No observ ation record ed. [facility] [address], [place], [address], 01/19/2022 10:27:31 Result Notes None recorded. 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 13:56:52 Educatio n Completed 201210/22/2020 Counseli ng contrace ptive manageme nt;Pract ice ID: [address] [facility] 13:56:41 Speciali zed medical examinat ion Completed 201210/22/2020 Routine gynecolo gical examinat ion;Prac keenan ID: [address] [facility] 13:56:54 Pregnanc y test negative [id number] Completed 201210/22/2020 Negative Pregnanc y Test;Pra ctice ID: [address] [facility] 13:56:46 Implanta tion of subcutan eous contrace ptive Completed 201210/22/2020 Insertio n of implanta ble subderma l contrace ptive;Pr actice ID: [address] [facility] 13:56:44 Subcutan eous contrace ptive implant present [id number] Completed 201310/22/2020 Removal Or Check Nexplano n;Practi ce ID: [address] [facility] 13:56:[address] Concept Completed 201510/22/2020 Encounte r for surveill ance of other contrace ptives;P kimmy ID: 0001 [facility] 13:56:51 Breast lump Completed 201610/22/2020 Diffuse cystic mastopat hy of unspecif ied breast;P ractice ID: [address] [facility] 13:56:35 Carbuncl e 701215322 Completed 201610/22/2020 Carbuncl e, unspecif ied;Prac keenan ID: [address] [facility] 13:56:38 Hypertro phy of clitoris 70057604 Completed 201810/22/2020 Oth noninfla mmatory disorder s of vulva and perineum ;Practic e ID: [address] [facility] 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 13:56:49 Educatio n Completed 201810/22/2020 Encounte r for oth general cnsl and advice on contrace ption;Pr actice ID: [address] [facility] 13:56:40 Breast lump 46605087 Completed 201610/22/2020 Unspecif ied lump in breast;R ecorded Elsewher e: No Locat ion: Yocasta campbell [facility] S ource: EHR Environmental Program Manager soraida: N Practi ce ID: 0001 Alfie lable Time: 02:00:00 PM Yasmine Rosen [facility] 13:56:36 Pregnanc y 58085356 Completed 202008/15/2021 Casie quiroz [facility] 2 11:01:53 Obesity 728433273 Completed BMI >35 start weekly antenata l testing @ 37wks Casie quiroz [facility] 2 11:01:47 Pregnanc y-induce d hyperten alcides 13310579 Completed incorrec t diagnosi s Rayshawn Shabazz MD [address], [place], [address], [facility] 1 21:23:14 Chronic hyperten alcides in obstetri c context 5940230 Completed no meds yet - 32 weeks twice weekly per MFM rec /Sun (long day) Casie rollins, [facility] 2 11:01:47 Chronic hyperten alcides in obstetri c context 2167240 Active no meds yet - 32 weeks twice weekly per MFM rec /Sun (long day) Casei rollins, [facility] 2 11:01:47 Depressi ve disorder 35546940 Completed Zoloft 50mg *06/01/21 EPDS 8 Casie rollins, [facility] 2 11:01:47 Gestatio nal diabetes mellitus 94478712 Completed 2021 Diet teaching complete d 06/01/21. Antenata l testing schedule d. Casie rollins, [facility] 2 11:01:47 Oligohyd ramnios 74164669 Completed Casie rollins, [facility] 2 11:01:47 Problem Notes None recorded. Procedures Surgical History Date Name Laterality Status Provider Name and Address Organization Details Recorded Time 025 Control Implant Removal completed MARTINE Kwon [address], [place], [address], [facility] 10/14/2024 14:56:00 025 Control Implant Insertion completed MARTINE Kwon [address], [place], [address], [facility] 10/14/2024 14:55:57 023 Date of Last Pap Smear completed Deepika Varela [facility] 10/14/2024 14:26:33 022 Control Implant Insertion completed Chantal Mohr [facility] 10/07/2021 14:42:48 019 Cholecystectomy completed [facility] 12/22/2020 15:14:20 017 Date of Last Mammogram completed [facility] 08/29/2021 17:52:25 011 Appendectomy completed [facility] 12/22/2020 15:14:14 007 Tonsillectomy completed [facility] 12/22/2020 15:14:26 Imaging Results None recorded. Procedure Notes None recorded. Medical Equipment None Reported. Allergies Allergen ID Allergen Name Allergen Category Reaction Reaction Severity Criticality Documentation Date Start Date Code Code System Note Provider Name and Address Organization Details Recorded Time 2447 Benadryl medicatio n Not available Not available Not available 03/09/2020 7 RxNorm Rhonda rollins, [facility] 0 12:25:11 Medications Name Sig Start Date Stop Date Status Note LastModified by Organization Details LastModified Time amoxicill in 500 mg capsule TAKE 1 CAPSULE BY MOUTH THREE TIMES DAILY FOR 7 DAYS 10/22 completed Not Available Not Available Not Available venlafaxi ne ER 37.5 mg capsule,e xtended release 24 hr TAKE 1 CAPSULE BY MOUTH ONCE DAILY 10/22 completed Not Available Not Available Not Available clindamyc in HCl 300 mg capsule 11/22 completed Not Available Not Available Not Available azithromy raji 250 mg tablet TAKE 2 TABLETS BY MOUTH ON DAY 1, AND THEN TAKE 1 TABLET BY MOUTH ONCE A DAY ON DAY 2 THROUGH DAY 5 07/05 /2023 completed Not Available Not Available Not Available ofloxacin 0.3 % eye drops 11/22 completed Not Available Not Available Not Available fluconazo le 150 mg tablet TAKE ONE TABLET BY MOUTH A ONE-TIME DOSE 09/12 completed Not Available Not Available Not Available valacyclo vir 1 gram tablet TAKE 1 TABLET BY MOUTH TWICE DAILY EVERY 12 HOURS FOR 1 DAY 11/22 completed Not Available Not Available Not Available fluconazo le 200 mg tablet TAKE 1 TABLET BY MOUTH EVERY OTHER DAY FOR 3 DOSES 12/22 completed Not Available Not Available Not Available promethaz ine 12.5 mg tablet TAKE 1 TABLET BY MOUTH EVERY 4 TO 6 HOURS 12/22 completed Not Available Not Available Not Available ondansetr on HCl 4 mg tablet TAKE 1 TABLET BY MOUTH EVERY 8 HOURS NEEDED FOR NAUSEA OR VOMITING 10/22 completed Not Available Not Available Not Available phentermi ne 15 mg capsule TAKE 1 CAPSULE BY MOUTH ONCE DAILY active Not Available Not Available No t Available hydroxyzi ne HCl 50 mg tablet Take 1 tablet every 6 hours by oral route as needed. active Not Available Not Available No t Available phentermi ne 37.5 mg tablet TAKE 1 TABLET BY MOUTH ONCE DAILY FOR 30 DAYS 10/22 completed Not Available Not Available Not Available amoxicill in 500 mg tablet TK1 TABLET BY MOUTH THREE TIMES DAILY FOR 10 DAYS 10/22 completed Not Available Not Available Not Available ondansetr on 8 mg disintegr ating tablet DISSOLVE 1 TABLET IN MOUTH TWICE DAILY 09/12 completed Not Available Not Available Not Available Microgest in FE 06/09 (28) 1 mg-20 mcg (21)/75 mg (7) tablet take on tablet by oral route every day 12/22 completed Not Available Not Available Not Available doxycycli ne monohydra te 100 mg capsule take 1 capsule by oral route every day 04/21 completed Prescrib gerson Johnson e: No Locat ion: [facility] odify By: hannah rivera DateTime : 03/30/20 17 03:00:00 PM Not Available Not Available Not Available pantopraz ole 40 mg tablet,de layed release TAKE 1 TABLET BY MOUTH ONCE DAILY active Not Available Not Available No t Available prednison e 50 mg tablet TAKE 1 TABLET BY MOUTH ONCE DAILY FOR 5 DAYS 11/22 completed Not Available Not Available Not Available sertralin e 25 mg tablet Take 1 tablet every day by oral route. 11/22 completed Not Available Not Available Not Available hydroxyzi ne HCl 25 mg tablet TAKE 1/2 (ONE-JEFFERY F) TO 1 TABLET BY MOUTH ONCE DAILY NEEDED FOR ACUTE ANXIETY ATTACKS 10/14 completed Not Available Not Available Not Available ipratropi um bromide 42 mcg (0.06 %) nasal spray USE 2 SPRAY(S) IN EACH NOSTRIL THREE TIMES DAILY 11/22 completed Not Available Not Available Not Available fluticaso ne propionat e 50 mcg/actua tion nasal spray,raven pension USE 2 SPRAY(S) IN EACH NOSTRIL ONCE DAILY NEEDED 10/22 completed Not Available Not Available Not Available sertralin e 50 mg tablet TAKE 1 TABLET BY MOUTH ONCE DAILY active Not Available Not Available No t Available amoxicill in 875 mg-potass ium clavulana te 125 mg tablet TAKE 1 TABLET BY MOUTH TWICE DAILY FOR 7 DAYS 11/22 completed Not Available Not Available Not Available clindamyc in 1 % lotion APPLY A THIN LAYER OF LOTION TOPICALL Y 2 3 TIMES A WEEK AT NIGHT WASH OFF IN THE MORNING 03/21 completed Not Available Not Available Not Available Ortho Evra 150 mcg-35 mcg/24 hr transderm al patch apply 1 patch by transder mal route every week Change Patch every week for 3 weeks. Leave off for 1 week. Repeat. 01/13 completed Prescrib gerson Johnson e: No Locat ion: [facility] odify By: [email or web address] trick En counter DateTime : 10/18/19 14 11:46:57 AM Not Available Not Available Not Available escitalop rupesh 10 mg tablet TAKE 1 TABLET BY MOUTH ONCE DAILY 11/22 completed Not Available Not Available Not Available topiramat e 50 mg tablet TAKE 1 TABLET BY MOUTH TWICE DAILY 11/22 completed Not Available Not Available Not Available duloxetin e 30 mg capsule,d elayed release TAKE 1 CAPSULE BY MOUTH ONCE DAILY FOR 90 DAYS active Not Available Not Available No t Available Tums 09/12 completed Not Available Not Available Not Available Cleocin 03/09 completed Not Available Not Available Not Available Gianvi (28) 3 mg-0.02 mg tablet TAKE 1 TABLET BY MOUTH ONCE DAILY 06/29 completed Not Available Not Available Not Available Nexplanon 68 mg subdermal implant Inject 1 implant by subcutan eous route. 2024 active Nexplano n insert 10/04/24 needs removed by 10/15/27 Not Available Not Available Not Available [place] es Complete 09/12 completed Not Available Not Available Not Available Vitals Date Recorded Body height Body mass index (BMI) Body weight Systolic blood pressure Diastolic blood pressure Provider Name and Address Organization Details Last Updated DateTime 08/14/2022 161.29 cm 42.2 kg/m2 547083.3 5 g 129 mm[Hg] 80 mm[Hg] Madeleine Chinchilla [facility] 3 17:38:41 Date Recorded Body height Body mass index (BMI) Body weight Systolic blood pressure Diastolic blood pressure Provider Name and Address Organization Details Last Updated DateTime 10/14/2024 161.29 cm 43.2 kg/m2 141489.9 1 g 123 mm[Hg] 82 mm[Hg] Deepika Avery [facility] 5 14:25:42 Date Recorded Body height Body mass index (BMI) Body weight Systolic blood pressure Diastolic blood pressure Provider Name and Address Organization Details Last Updated DateTime 11/22/2022 161.29 cm 42.9 kg/m2 646797.7 2 g 124 mm[Hg] 78 mm[Hg] Danae Oscar [facility] 3 12:51:43 Date Recorded Systolic blood pressure Diastolic blood pressure Provider Name and Address Organization Details Last Updated DateTime 01/07/2022 122 mm[Hg] 80 mm[Hg] Bren Sharma LAT[facility]- [address], [place], [address], [facility] 01/07/2022 11:29:50 Date Recorded Body height Body mass index (BMI) Body weight Provider Name and Address Organization Details Last Updated DateTime 01/07/2022 161.29 cm 40.5 kg/m2 623697.87 g Danae Oscar [facility] 01/07/2022 11:03:20 Date Recorded Body height Body mass index (BMI) Body weight Systolic blood pressure Diastolic blood pressure Provider Name and Address Organization Details Last Updated DateTime 03/24/2022 161.29 cm 40.5 kg/m2 635163.4 3 g 133 mm[Hg] 82 mm[Hg] Madeleine Chinchilla [facility] 10:32:13 Social History Question Answer Notes LastModified by Organizat ion Details LastModified Time Tobacco Smoking Status Never Smoker Madeleine Chinchilla ayo [facility] 02/24/2021 15:50:55 Do You Have An Advance Directive? No Information n ot available 02/24/2021 Are You Blind Or Do You Have Difficulty Seeing? No Information n ot available 10/22/2020 What Is Your Level Of Caffeine Consumption? Moderate Information not available 10/22/2020 In The 14 Days Before Symptom Onset, Have You Had Close Contact With A Laboratory-confirm ed COVID-19 While That Case Was Ill? No [email or web address] Information n ot available 12/22/2020 In The 14 Days Before Symptom Onset, Have You Had Close Contact With A Person Who Is Under Investigation For COVID-19 While That Person Was Ill? No [email or web address] Information not available 12/22/2020 Have You Been To An Area Known To Be High Risk For COVID-19? No [email or web address] Information not available 12/22/2020 Are You Deaf Or Do You Have Serious Difficulty Hearing? No Information not available 10/22/2020 What Type Of Diet Are You Following? REGULAR Information n ot available 10/22/2020 What Is The Highest Grade Or Level Of School You Have Completed Or The Highest Degree You Have Received? [id number] Information not available 02/24/2021 Are There Any Guns Present In Your Home? No Information not available 02/24/2021 Have You Ever Been Counseled For Unhealthy Alcohol Use? No [email or web address] Information not available 07/01/2021 Do You Use Protection During Sex? No Information not available 02/24/2021 Do You Use Your Seat Belt Or Car Seat Routinely? Yes Information not available 10/22/2020 Are You Sexually Active? Yes Information not available 02/24/2021 Do You Have Smoke And Carbon Monoxide Detectors In Your Home? Yes Information not available 10/22/2020 How Much Tobacco Do You Smoke? No Information not available 02/24/2021 Do You Use Sunscreen Routinely? No Information not available 02/24/2021 Has Tobacco Cessation Counseling Been Provided? No [email or web address] Information not available 07/01/2021 Have You Used IV Drugs? No Information not available 02/24/2021 Do You Have Difficulty Walking Or Climbing Stairs? No [email or web address] Information not available 07/01/2021 Sex: Unknown Functional Status Question Answer Note LastModified by Organizat ion Details LastModified Time Do you use any illicit or recreational drugs? No Information not available 10/22/2020 Do you or have you ever used any other forms of tobacco or nicotine? No [email or web address] Information not available 07/01/2021 What is your level of alcohol consumption? Occasional Information not available 10/22/2020 Are you able to walk? [email or web address] Information not available 10/22/2020 Are you able to care for yourself? 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 No [email or web address] Information not available 07/01/2021 What is your exercise level? Moderate Information not available 10/22/2020 Mental Status Question Answer Note LastModified by Organization D etails LastModified Time Do you feel stressed (tense, restless, nervous, or anxious, or unable to sleep at night)? [id number] Information not available 02/24/2021 Family History Relationship Description Onset Age of this Age Resolved Age Notes LastModified by Organization Details LastModified Time Sister Asthma [email or web address] Not available 12:25:27 Maternal Aunt Asthma [email or web address] Not avail able 03/09/2020 12:25:33 Maternal Aunt Carcinoma in situ of breast [email or web address] Not available 2020 15:36:05 Maternal Grandmother Chronic hepatitis [email or web address] Not available 2020 15:36:05 Mother Lupus erythematosu s [email or web address] Not available 2020 15:36:05 Paternal Grandmother Leukemia [email or web address] Not available 02/24 15:36:05 Medical History Condition Response Allergies (Food, seasonal, environmental ) Y Other Y Breast Cancer N Drug/Latex Allergies/Reactions N Blood Transfusion N Lung Disease N Dermatologic Disorders N Defects or Inherited Disease N Breast Problem N Gestational Diabetes N Hematologic disorders N Anesthesia Complications N History of STI N Deep Vein Thrombosis N Polycystic ovary syndrome N Anxiety Disorder Y Autoimmune disease N Arthritis N Polyps N Infertility N History of abnormal pap N Acid Reflux (GERD) N Cancer N Varicosities N Stroke N Neurologic/Epilepsy N Endometriosis N High Cholesterol N Fibromyalgia N Headaches N Kidney Disease N Heart Problems N Kidney or Bladder Problems N Thyroid Problems N GI Problems Y Eating Disorder N Anemia N Art (IVF or FET) N Psychiatric Illness N Ovarian Cancer N Diabetes N Pulmonary (TB, Asthma) N Hepatitis/Liver Disease N No Past Medical History N Eczema N Urinary Tract Infection N Abuse/Domestic Violence N Asthma Y Trauma/Violence N Depression/ depression Y Heart Disease N Pre-Eclampsia N Hypertension Y Osteoporosis N Thrombophilias N Gynecological History Statement/Question Response Flow Moderate Date of Last Mammogram 11/27/2016 Date of LMP 10/10/2024 N On BCP's at Conception? N STIs/STDs N Was last menstrual period normal Y HPV Vaccine N Duration of Flow (days) 5 17 Current Control Method Implant Are cycles usually normal Y Date of Last Colonoscopy Sexually Active? Y Menses Monthly Y Date of DEXA bone scan Age of first menstrual cycle 15 Date of Last Pap Smear 11/22/2022 Sexual Problems? N LMP Approximate Desired Control Method N Obstetrics History GPAL:G 1 P 1 0 0 1 Type Value Full Term 1 Living 1 Total 1 Past Encounters Encounter ID Performer Location Encounter Start Date Encounter Closed Date Diagnosis/Indication Diagnosis SNOMED-CT Code Diagnosis ICD10 Code Diagnosis Note [id number] Bren Sharma [facility] [address] [address] 03/09/2020 12:23:34 03/09/2020 14:03:16 Vaginitis [id number] N76.0 Because she has no insurance we agreed to hold off on swab & treat for presumptiv e yeast infection. If she does not get better THEN we will pursue additional testing. Diflucan was sent. VCG sheet was given for review to change her products & things she can do to soothe vulva if needed. Time spent in visit is a total of 15 mins with at least 50% of visit consisting of counseling and review of plan of care. [id number] Bren Sharma , [facility] [address] [address] 10/22/2020 14:33:08 10/22/2020 15:27:53 Gynecologic examination [id number] Z01.419 Take Calcium with Vitamin D 1200mg daily if not receiving in daily diet. It is strongly advised to have an annual flu shot and up can obtain at most pharmacies . If you have not had a TDap shot in the last 10 years you should obtain one as well. Discussed with patient & provided with informatio n regarding Gardisil vaccine to prevent the 4 strains for HPV that cause cervical cancer if under age 26. Encourage safe sexual practices, to use condoms and limit partners if not already in a monogamous relationsh ip. Do monthly self breast exams. Have mammogram yearly or every other year depending on family history. BRCA testing is now available for patients with strong genetic history of female cancer. If interested contact the office. Engage in daily exercise of low impact aerobic exercise 45-60 minutes 4-5 times weekly. Avoid tobacco and illicit drugs as well as using moderation with alcohol intake less than 1-2 8 oz beverages daily. This lifestyle behavior pattern will lead to less health conditions and longer life span. If BMI greater than 25 weight watchers or dietary consult advised. Patient received above instructio ns, and questions have been answered. If you have any questions please call or respond to this email. Patient was made aware of the patient portal and may obtain a paper copy of today's plan if desired. Pap/hpv defer Last pap 2018 wnl Due 2021 unless otherwise indicated per asccp Decline std screening Vaginitis [id number] N76.0 Having issues with possible yeast infection Very sensitive skin. We agreed to the following: Vag cx sent Dfilucan with rf sent since going to [place] in another week. Have partner change soaps to ensure his is not irritating her vulva skin. Daily moisturizi ng VCG crisco/praneeth ve oil. RTO if still having issues. [facility] [id number] Z30.9 [id number] [facility] [address],[place] [address] 12/22/2020 14:48:33 12/23/2020 10:34:31 Dizziness [id number] R42 [id number] [facility] [address],[place] [address] 01/07/2021 15:27:53 01/07/2021 16:30:26 Amenorrhea 32239601 N91.2 [id number] Rayshawn Shabazz MD [place] [address],[place] [address] 01/07/2021 15:27:53 01/07/2021 16:30:26 [id number] Rayshawn Shabazz MD [place] [address],[place] [address] 01/28/2021 11:55:26 01/28/2021 13:10:53 Nausea and vomiting 67989468 R11.2 Abscess of skin and/or subcutaneous tissue 78690452 L02.91 Routine an tenatal care 777822704 Z34.01 [id number] MD Brian Haney [address],[place] [address] 01/28/2021 11:56:11 01/28/2021 13:13:56 screening 016074208 Z36.82 [id number] MD Brian Haney [address],[place] [address] 02/24/2021 15:35:53 02/25/2021 09:55:36 Routine care 098993330 Z34.01 [id number] Hollie Dickinson MD [place] [address],[place] [address] 03/21/2021 10:58:54 03/21/2021 12:23:24 screening [id number] Z36.3 [id number] Hollie Dickinson MD [place] [address],[place] [address] 03/21/2021 10:59:43 03/21/2021 13:00:18 Chronic hypertension in obstetric context 4810322 O16.9 Obesity 939324825 E66.9 Routine an tenatal care 305583175 Z34.02 [id number] Rayshawn Shabazz MD [place] [address],[place] [address] 04/21/2021 14:38:00 04/21/2021 16:45:11 screening 815312660 Z36.2 [id number] Rayshawn Shabazz MD [place] [address],[place] [address] 04/21/2021 14:38:23 04/21/2021 17:06:30 Routine care 478145632 Z34.01 [id number] Rayshawn Shabazz MD [place] [address],[place] [address] 04/25/2021 16:39:59 04/26/2021 12:11:40 Bleeding from female genital tract during [id number] 3532820 O46.92 [id number] Rayshawn Shabazz MD [place] [address],[place] [address] 04/26/2021 09:54:17 04/26/2021 11:09:05 Bleeding from female genital tract during [id number] 4564103 O46.92 Z3A.24 [id number] [facility] [address],[place] [address] 05/19/2021 14:51:00 05/20/2021 18:55:28 Routine care 964579582 Z34.92 [id number] Rayshawn Shabazz MD [facility] [address],[place] [address] 05/19/2021 14:50:28 05/19/2021 15:27:09 Maternal obesity complicating , childbirth and the puerperium, antepartum 1431050178 07 O99.213 O16.9 Z3A.27 33071 Rayshawn Shabazz MD [facility] [address],[place] [address] 06/01/2021 09:26:52 06/01/2021 15:58:13 Routine care 008184088 Z34.01 [id number] Rayshawn Shabazz MD [facility] [address],[place] [address] 06/01/2021 11:10:12 06/01/2021 12:10:22 Gestational diabetes mellitus class A1 [id number] O24.410 Pt here for diet teaching. Diet teaching completed. Carb counts for meals and snacks reviewed. Pt instructed on how to read nutritiona l labels and instructed on researchin g carb counts for fresh fruits and vegetables . Pt provided with print outs with some fresh food carb counts and online resources reinforced for checking fresh food serving sizes and carb counts. Pt instructed on blood sugar level goals and importance of checking blood sugar and keeping blood sugar log. Pt instructed on high protein low carb and provided with food recommenda tions. Pt instructed on 2200 calorie ADA diet and importance of regular meals and snacks with controlled carb amounts for a alf stable control of blood sugar. Pt is aware an OB steam press operator will call her next week to review her BS log after making diet changes. Pt verbalized understand ing [place] [id number] Rayshawn Shabazz MD [facility] [address],[place] [address] 06/21/2021 12:24:43 06/21/2021 13:38:23 Chronic hypertension complicating AND/OR reason for care during 88880619 O16.9 [id number] Rayshawn Shabazz MD [facility] [address],[place] [address] 06/24/2021 11:55:35 06/24/2021 12:49:10 Maternal obesity complicating , childbirth and the puerperium, antepartum [id number] 07 O99.213 O16.9 Z3A.32 12129 Rayshawn Shabazz MD [place] [address],[place] [address] 1 06/24/2021 11:55:50 06/24/2021 13:02:03 Chronic hypertension complicating AND/OR reason for care during 39071141 O16.9 [id number] Yolie Strickland [facility] [address],[place] [address] 06/24/2021 11:56:15 06/24/2021 14:38:55 Routine care 927985666 Z34.93 [id number] Rayshawn Shabazz MD [place] [address],[place] [address] 06/28/2021 12:29:26 06/28/2021 13:11:09 Chronic hypertension complicating AND/OR reason for care during 59943893 O16.9 [id number] Rayshawn Shabazz MD [place] [address],[place] [address] 07/01/2021 11:56:42 07/01/2021 13:01:50 Oligohydramnios 80794917 O41.03X1 [id number] Rayshawn Shabazz MD [place] [address],[place] [address] 07/01/2021 11:56:59 07/01/2021 12:51:17 Chronic hypertension complicating AND/OR reason for care during 19043548 O16.9 90351 Yolie Strickland [facility] [address],[place] [address] 07/01/2021 11:57:13 07/01/2021 13:51:06 Routine care 872166593 Z34.93 [id number] Rayshawn Shabazz MD [place] [address],[place] [address] 07/05/2021 12:24:41 07/05/2021 13:16:56 Chronic hypertension complicating AND/OR reason for care during 36641464 O16.9 [id number] Rayshawn Shabazz MD [place] [address],[place] [address] 07/08/2021 11:43:53 07/08/2021 12:33:54 Chronic hypertension complicating AND/OR reason for care during 90464727 O16.9 [id number] Rayshawn Shabazz MD [place] [address],[place] [address] 07/08/2021 11:44:16 07/08/2021 13:09:23 Oligohydramnios 11603944 O41.03X1 Gastroesop hageal reflux disease 254826205 K21.9 Chronic hy pertension complicating AND/OR reason for care during 42366424 O16.9 48231 Rayshawn Shabazz MD [place] [address],[place] [address] 07/08/2021 11:44:36 07/08/2021 15:57:15 Oligohydramnios 70850407 O41.03X1 [id number] Rayshawn Shabazz MD [place] [address],[place] [address] 07/12/2021 12:30:02 07/12/2021 13:25:52 Gestational diabetes mellitus class A1 49348214 O24.410 [id number] Rayshawn Shabazz MD [place] [address],[place] [address] 1 07/15/2021 09:35:54 07/15/2021 10:16:40 Maternal obesity complicating , childbirth and the puerperium, antepartum 2861919079 07 O99.213 O16.9 Z3A.35 40847 MD Brian Haney [address],[place] [address] 07/15/2021 09:36:17 07/15/2021 10:51:19 Maternal obesity complicating , childbirth and the puerperium, antepartum 7498104193 07 O99.213 O16.9 Z3A.35 32736 Rayshawn Shabazz MD [place] [address],[place] [address] 07/15/2021 09:36:40 07/15/2021 11:23:37 Routine care 637711384 Z34.01 34875 MD Brian Haney [address],[place] [address] 07/19/2021 12:20:36 07/19/2021 15:13:17 Chronic hypertension in obstetric context 5687328 O16.9 [id number] Rayshawn Shabazz MD [place] [address],[place] [address] 07/22/2021 10:11:26 07/22/2021 11:40:18 Chronic hypertension complicating AND/OR reason for care during 04776189 O16.9 [id number] MD Brian Haney [address],[place] [address] 07/22/2021 10:11:41 07/22/2021 10:56:22 -induced hypertension 83126926 O13.9 11966 Rayshawn Shabazz MD [place] [address],[place] [address] 07/22/2021 10:11:56 07/22/2021 12:06:43 Routine care 453941938 Z34.01 [id number] MD Brian Haney [address],[place] [address] 1 07/26/2021 12:23:26 07/26/2021 13:54:49 Chronic hypertension in obstetric context 9267611 O16.9 73938 Yolie Strickland CNM [place] [address],[place] [address] 07/29/2021 09:57:49 07/29/2021 11:15:57 Routine care 034929029 Z34.93 [id number] Yolie Strickland CNM [place] [address],[place] [address] 07/29/2021 09:57:28 07/29/2021 15:15:31 Chronic hypertension complicating AND/OR reason for care during 29807517 O16.9 [id number] Chantal Mohr [facility] [address],[place] [address] 09/12/2021 10:49:39 09/13/2021 16:49:11 state 54551266 Z39.2 Continue to watch for signs/symp toms of post depression . Doing well with current dose of zoloft. Return one year from last pap smear (after 10-22-21)for a well woman exam. Plan follow up gtt in 1-2 months. Patient received above instructio ns, and questions have been answered. If you have any questions please call or respond to this email. Patient was made aware of the patient portal and may obtain a paper copy of today's plan if desired Contracept ion care management 994872188 Z30.9 Pt would like to use nexplanon again. Discussed risks and benefits. Pt will call on the first day of her cycle to schedule placement. [id number] Chantal Mohr [facility] [address],[place] [address] 09/30/2021 13:44:38 10/03/2021 16:17:21 Implantation of subcutaneous contraceptive 505090160 Z30.9 Return in 1 month for for follow up. [id number] [facility] [address],[place] [address] 01/07/2022 10:57:52 01/07/2022 11:33:19 Localized tenderness of breast 431900295 N64.4 N63.32 N63.20 Today exam warrants further evaluation with imaging.Or ders placed & will contact to schedule her appt.Will await report & decide if further steps in plan of care are needed. Time spent in visit is a total of 15 mins with at least 50% of visit consisting of counseling and review of plan of care. [id number] Rayshawn Shabazz MD [place] [address],[place] [address] 03/24/2022 10:22:41 03/24/2022 11:43:08 Routine care 187195531 Z34.01 Mixed anxi ety and depressive disorder 596709767 F41.8 Abnormal u terine bleeding 9652903514 9100 N93.9 Contracept ion care management 851149344 Z30.9 this patient is a 26-year-ol d female who presents for 2 complex issues. We were meeting to follow-up on depression / anxiety and her medication . Talked about various medication options. Talked about norepineph rine reuptake inhibitors to added to her current SSRI. We talked about alternate SSRIs. She has trouble with fatigue. Is uncertain if this is side effect medication or ineffectiv e her depression . She lacks motivation and feels overwhelme d. We also discussed her sexual side effects. She has trouble having an orgasm and has little genital sensation. We agreed to switch to Lexapro. She will transition to 10 mg of Lexapro daily. We talked about her abnormal uterine bleeding. Talked about her Nexplanon. We talked about remedies for abnormal uterine bleeding with Nexplanon. We talked about her hemorrhoid s as well. Talked about solutions for hemorrhoid problems. She is treating the hemorrhoid s at home with hot baths and medication . We discussed a referral to General surgery. We spent over 40 minutes face-to-fa ce. More than 50% was counseling . She will follow-up in 1 month. [id number] Rayshawn Shabazz MD [place] [address] [address] 08/14/2022 17:32:21 08/15/2022 11:42:30 Obesity 697614973 E66.9 Mixed anxi ety and depressive disorder 713700312 F41.8 This patient is a 18-year-ol d female presents for medication follow-up and weight management . Talked about her medication . Talked about treatment of anxiety and depression . She is very well controlled now using sertraline . She would like to continue that. We talked about abnormal uterine bleeding. Talked about weight management . We talked about calories, we talked about calorie management , exercise, talked medication s in detail. We spent 40 minutes face-to-fa ce. More than 50% was counseling we agreed to treat with low-dose phentermin e and topiramate . [id number] MARTINE Kwon [place] [address],[place] [address] 11/22/2022 12:26:31 11/22/2022 14:25:03 Gynecologic examination 35420706 Z01.419 Take Calcium with Vitamin D 1200mg daily if not receiving in daily diet. It is strongly advised to have an annual flu shot and up can obtain at most pharmacies . If you have not had a TDap shot in the last 10 years you should obtain one as well. Discussed with patient & provided with informatio n regarding Gardisil vaccine to prevent the 4 strains for HPV that cause cervical cancer if under age 26. Encourage safe sexual practices, to use condoms and limit partners if not already in a monogamous relationsh ip. Do monthly self breast exams. Have mammogram yearly or every other year depending on family history. BRCA testing is now available for patients with strong genetic history of female cancer. If interested contact the office. Engage in daily exercise of low impact aerobic exercise 45-60 minutes 4-5 times weekly. Avoid tobacco and illicit drugs as well as using moderation with alcohol intake less than 1-2 8 oz beverages daily. This lifestyle behavior pattern will lead to less health conditions and longer life span. If BMI greater than 25 weight watchers or dietary consult advised. Patient received above instructio ns, and questions have been answered. If you have any questions please call or respond to this email. Patient was made aware of the patient portal and may obtain a paper copy of today's plan if desired.[facility] - nexplanon, inserted 09/30/2021 - will 09/30/2024h appy with nexplanon, no issuesno hx of abnormal papslast pap 2019 - normalpap updated todaySTI testing declinedUT D with PCP Mixed anxi ety and depressive disorder 804368421 F41.8 increased anxiety/de pression symptoms. Lack of motivation , crying spells, worry. Noticed symptoms increased when she switching from sertraline to lexapro. Wants to go back on sertraline . Rx sent, R/B/A discussed. Denies ever thoughts of harming herself or others, precaution s discussed - if these thoughts occur call 911/seek help immediatel y.we agreed to add hydroxyzin e PRN for anxiety - rx sent, R/B/A discussedr ecommended counseling encouraged f/u with PCP EPDS: 11 Contracept ion care management 751836077 Z30.9 [id number] MARTINE Kwon [place] [address],[place] [address] 10/14/2024 13:48:32 10/14/2024 15:03:40 Contraception status 984873752 Z30.46 Discussed with patient risks, benefits, and alternativ es of contracept ion. Discussed all options, including natural family planning, condoms, combined oral contracept trinity, contracept zandra patch, Nuva-ring, Depo-Prove ra, Nexplanon, intrauteri ne device, and sterilizat ion (tubal ligation, vasectomy) . Advised that of the above listed options, only condoms can prevent sexually transmitte d infections and that condoms can be used together with any form of contracept ion. Pt desire nexplanon removal/re placementn explanon removed and replaced (see procedure note)preca utions discussed, questions answeredRT C for WWE or sooner if needed Time spent in visit is a total of 30 mins with at least 50% of visit consisting of counseling and review of plan of care. Implantati on of subcutaneous contraceptive 874659157 Z30.017 Venereal d isease screening 006301704 Z11.3 Health Concerns Section Related Observation LastModified by Organization Detai ls LastModified Time None Recorded Concern Status LastModified by Organization Details LastModified Time None Recorded Advance Directives Directive N: Payers Encounter Date Sequence Insurance Name Policy Number Policy Mcdowell Covered Member ID Mcdowell Member ID Guarantor Name 01/07/2022 1 [facility] ON OR AFTER 11/18/20 (MEDICAID REPLACEMENT - HMO) Marleny Truong [id number] Marleny Doan 03/24/2022 1 [facility] ON OR AFTER 11/18/20 (MEDICAID REPLACEMENT - HMO) Marleny Truong [id number] Marleny Doan 08/14/2022 1 [facility] ON OR AFTER 11/18/20 (MEDICAID REPLACEMENT - HMO) Marleny Truong [id number] Marleny Doan 11/22/2022 1 [facility] ON OR AFTER 11/18/20 (MEDICAID REPLACEMENT - HMO) Marleny Truong [id number] Marleny Doan 10/14/2024 1 [facility] [id number] Kimo Doan [id number] Marleny Doan Notes Date Note Type Note Provider Name and Address Organization Details Recorded Time 01/07/2022 text/html Breast MassRepor [email or web address] bypatient.Location:l eft; upper outer quadrant Onset/Timin-2 weeks; gradual; since 09/2021 Breast fed for 3wks but has since d/c'd. Neg nipple discharge. Quality:soft; tender; mobile Severity:mild Duration:persistent Context:performs breast self examination Associated Symptoms:no fever; no skin redness; no nipple discharge; no breast swelling; no arm pain; no arm swelling; no chest pain Bren Sharma, LATONYA- [address], [place], [address], [facility] 01/07/2022 11:32:06 03/24/2022 text/html this patient is a 26-year-old female who presents for 2 complex issues. We were meeting to follow-up on depression/ anxiety and her medication. Talked about various medication options. Talked about norepinephrine reuptake inhibitors to added to her current SSRI. We talked about alternate SSRIs. She has trouble with fatigue. Is uncertain if this is side effect medication or ineffective her depression. She lacks motivation and feels overwhelmed. We also discussed her sexual side effects. She has trouble having an orgasm and has little genital sensation. We agreed to switch to Lexapro. She will transition to 10 mg of Lexapro daily. We talked about her abnormal uterine bleeding. Talked about her Nexplanon. We talked about remedies for abnormal uterine bleeding with Nexplanon. We talked about her hemorrhoids as well. Talked about solutions for hemorrhoid problems. She is treating the hemorrhoids at home with hot baths and medication. We discussed a referral to General surgery. We spent over 40 minutes ddyn-dc-rtfn. More than 50% was counseling. She will follow-up in 1 month. Rayshawn Shabazz MD [address], [place], [address], [facility] 03/24/2022 11:36:20 08/14/2022 text/html This patient is a 18-year-old female presents for medication follow-up and weight management. Talked about her medication. Talked about treatment of anxiety and depression. She is very well controlled now using sertraline. She would like to continue that. We talked about abnormal uterine bleeding. Talked about weight management. We talked about calories, we talked about calorie management, exercise, talked medications in detail. We spent 40 minutes avok-wh-xgim. More than 50% was counseling we agreed to treat with low-dose phentermine and topiramate. Rayshawn Shabazz MD [address], [place], [address], [facility] 08/14/2022 20:54:15 11/22/2022 text/html Annual GYNReport ed bypatient.Menstrual cycle:Normal menses Urinary symptoms:No hematuria; No incontinence Vulva:No genital lesion Vagina:Normal vaginal discharge Breast:No breast pain; No breast lump; No nipple discharge Current Contraception:Satisf ied with current contraception; Subdermal contraceptive implant Sexual complaints:No sexual complaints; No pain during intercourse; Normal libido Menopausal Symptoms:No menopausal symptoms; Normal vaginal lubrication Psychological symptoms:Depression; Anxiety Preventive measures:Encourage self breast examination; Encourage regular exercise; Encourage no tobacco use; Encourage regular mammograms starting age 40 MARTINE Kwon [address], [place], [address], [facility] 11/22/2022 14:01:02 10/14/2024 text/html 29yopresents for nexplanon removal/replacements he would like to discuss nexplanon today as well as alternative optionscurrent nexplanon inserted 09/30/2021 MARTINE Kwon [address], [place], [address], [facility] 10/14/2024 15:54:40 OBGyn Episode Ob Episode Information Episode Created Date Number of Fetuses Patient Bloodtype Patient rh Status Prepregnancy Weight lbs Domestic Partner Domestic Partner Phone Father Name Wash Test Checker Status 01/29/20 21 1 O Negative 224 CLOSED Fetus Data First Name Last Name Admitted to NICU Weight (g) Sex Living Outcome Pediatric Complications Fetus ID Race Codes Race Delivery Type Mojica 2664.85 3 F true Full Term [id number] Vaginal Delivery Problems Problem Notes Problem Name Start Date End Date Resolution Snomed Code Not e Chronic hypertension in obstetric context 0048818 no meds ye t - 32 weeks twice weekly per MFM rec /Sun(long day) Obesity 404491174 BMI >35 st art weekly testing @ 37wks Oligohydramnios 67452248 Gestational diabetes mellitus 06/01/2021 72996299 Diet teaching completed 06/01/21. testing scheduled. Depressive disorder 84833484 Zoloft 50mg *06/01/21 EPDS 8 Todd Calculation Initial Todd Date Initial Exam Date Initial Exam Provider Initial Ultrasound Date Last Menstrual Period Date Ultra Sound Weeks Gestation 08/13/2021 01/28/2021 01/07/2021 11/06/2020 9 Eighteen To Twenty Week Todd Update Ultra Sound Date Fundal Height At Umbil Quickening Date Ultra Sound Latest Weeks Gestation Final Todd Confirmed By Final Todd Confirmed Date Final Todd Date Ultra Sound Latest Days Gestation 0 [email or web address] 01/28/2021 08/14/19 22 0 Pre-frances Flowsheet Flowsheet Date 01/28/2021 Shah Score Blood Edema Fundus Height Fundus Units Glucose Ketones Leukocytes Nitrite Labor Signs Protein Cervic Dilation Cervic Effacement Cervic Station 12 Type Weight in lbs Pre/Post Dialysis Refused Weight [id number] BP Diastolic BP Location Tested BP Systolic BP Type 85 R arm 147 sitting 79 L arm 144 sitting Fetus Heart Rate Present A 155 Fetus Movement Comments This patient is a 25-year-ol d 1 at 11 weeks and 6 days gestation who presents for initial care. She is to get genetic testing and have her pelvic ultrasound after this visit. She has unremarkable medical history. She has no obstetric history. She will begin routine care. Flowsheet Date 01/28/2021 Shah Score Blood Edema Fundus Height Fundus Units Glucose Ketones Leukocytes Nitrite Labor Signs Protein Cervic Dilation Cervic Effacement Cervic Station Type Weight in lbs Pre/Post Dialysis Refused BP Diastolic BP Location Tested BP Systolic BP Type Fetus Heart Rate Present Fetus Movement Comments Flowsheet Date 02/24/2021 Shah Score Blood Edema Fundus Height Fundus Units Glucose Ketones Leukocytes Nitrite Labor Signs Protein Cervic Dilation Cervic Effacement Cervic Station 15 trace Type Weight in lbs Pre/Post Dialysis Refused Weight [id number] BP Diastolic BP Location Tested BP Systolic BP Type 83 R arm 154 sitting 70 R arm 144 sitting Fetus Heart Rate Present A 156 Fetus Movement A Increased Comments no complaints today, no cram ping or bleeding, alpha protein today Flowsheet Date 03/21/2021 Shah Score Blood Edema Fundus Height Fundus Units Glucose Ketones Leukocytes Nitrite Labor Signs Protein Cervic Dilation Cervic Effacement Cervic Station Type Weight in lbs Pre/Post Dialysis Refused BP Diastolic BP Location Tested BP Systolic BP Type Fetus Heart Rate Present Fetus Movement Comments Flowsheet Date 03/21/2021 Shah Score Blood Edema Fundus Height Fundus Units Glucose Ketones Leukocytes Nitrite Labor Signs Protein Cervic Dilation Cervic Effacement Cervic Station neg trace trace Type Weight in lbs Pre/Post Dialysis Refused Weight 228.293978164874 BP Diastolic BP Location Tested BP Systolic BP Type 71 126 Fetus Heart Rate Present A 145 Fetus Movement A Yes Comments Doing well except still sick in ams. Will try snack on nightstand when gets up to go to bathroom. US today anatomy wnl except heart views and profile incomplete. Will complete next visit. BP good today. Flowsheet Date 04/21/2021 Shah Score Blood Edema Fundus Height Fundus Units Glucose Ketones Leukocytes Nitrite Labor Signs Protein Cervic Dilation Cervic Effacement Cervic Station Type Weight in lbs Pre/Post Dialysis Refused BP Diastolic BP Location Tested BP Systolic BP Type Fetus Heart Rate Present Fetus Movement Comments Flowsheet Date 04/21/2021 Shah Score Blood Edema Fundus Height Fundus Units Glucose Ketones Leukocytes Nitrite Labor Signs Protein Cervic Dilation Cervic Effacement Cervic Station 24 Type Weight in lbs Pre/Post Dialysis Refused Weight 231.724957579207 BP Diastolic BP Location Tested BP Systolic BP Type 80 L arm 131 sitting Fetus Heart Rate Present A 156 Fetus Movement Comments Patient continues to have so me symptoms of depression but they are in much improved. She thinks that they can be better. Her EPDS score is 13. we agreed to increase her Zoloft to 50 mg q.d.. Flowsheet Date 04/25/2021 Shah Score Blood Edema Fundus Height Fundus Units Glucose Ketones Leukocytes Nitrite Labor Signs Protein Cervic Dilation Cervic Effacement Cervic Station 24 Type Weight in lbs Pre/Post Dialysis Refused Weight 231.183304825542 BP Diastolic BP Location Tested BP Systolic BP Type 79 R arm 137 sitting Fetus Heart Rate Present A 145 Fetus Movement A Yes Comments patient reports some round l igament pain after increased activity, she had some spotting yesterday. She had a NST that was appropriate for gestational age yesterday, heart tones are normal today. We will perform pelvic ultrasound. She will follow-up at her next scheduled visit. Flowsheet Date 04/26/2021 Shah Score Blood Edema Fundus Height Fundus Units Glucose Ketones Leukocytes Nitrite Labor Signs Protein Cervic Dilation Cervic Effacement Cervic Station Type Weight in lbs Pre/Post Dialysis Refused BP Diastolic BP Location Tested BP Systolic BP Type Fetus Heart Rate Present Fetus Movement Comments Flowsheet Date 05/19/2021 Shah Score Blood Edema Fundus Height Fundus Units Glucose Ketones Leukocytes Nitrite Labor Signs Protein Cervic Dilation Cervic Effacement Cervic Station Type Weight in lbs Pre/Post Dialysis Refused BP Diastolic BP Location Tested BP Systolic BP Type Fetus Heart Rate Present Fetus Movement Comments Flowsheet Date 05/19/2021 Shah Score Blood Edema Fundus Height Fundus Units Glucose Ketones Leukocytes Nitrite Labor Signs Protein Cervic Dilation Cervic Effacement Cervic Station none trace neg Type Weight in lbs Pre/Post Dialysis Refused Weight 235.201353968889 BP Diastolic BP Location Tested BP Systolic BP Type 71 122 Fetus Heart Rate Present Fetus Movement A Yes Comments Doing well. Does not feel sh e will tolerate the 3 hour gtt. Has agreed to check blood sugar at home x 2 weeks. Will check fasting and 1 hour after each meals. Pt already has a glucometer that she can use. She will call us with the specific test strips and lancets needed so that we can call them in for her. U/S today. Await recommendations. Flowsheet Date 06/01/2021 Shah Score Blood Edema Fundus Height Fundus Units Glucose Ketones Leukocytes Nitrite Labor Signs Protein Cervic Dilation Cervic Effacement Cervic Station Type Weight in lbs Pre/Post Dialysis Refused Weight 237.777156527931 BP Diastolic BP Location Tested BP Systolic BP Type 81 R arm 131 sitting Fetus Heart Rate Present Fetus Movement Comments Flowsheet Date 06/01/2021 Shah Score Blood Edema Fundus Height Fundus Units Glucose Ketones Leukocytes Nitrite Labor Signs Protein Cervic Dilation Cervic Effacement Cervic Station 30 Type Weight in lbs Pre/Post Dialysis Refused BP Diastolic BP Location Tested BP Systolic BP Type Fetus Heart Rate Present A 145 Fetus Movement Comments poorly controlled blood suga rs on last 24 hours , she was given diet teaching today by 1 of our nurses. she denies any symptoms of preeclampsia. Her blood pressures are reasonably well controlled. She would begin twice weekly testing in 2 weeks. She will return in 2 weeks. She is going to contact us with her blood sugars and few days. Flowsheet Date 06/21/2021 Shah Score Blood Edema Fundus Height Fundus Units Glucose Ketones Leukocytes Nitrite Labor Signs Protein Cervic Dilation Cervic Effacement Cervic Station Type Weight in lbs Pre/Post Dialysis Refused BP Diastolic BP Location Tested BP Systolic BP Type 78 R arm 137 sitting Fetus Heart Rate Present Fetus Movement Comments Flowsheet Date 06/24/2021 Shah Score Blood Edema Fundus Height Fundus Units Glucose Ketones Leukocytes Nitrite Labor Signs Protein Cervic Dilation Cervic Effacement Cervic Station Type Weight in lbs Pre/Post Dialysis Refused BP Diastolic BP Location Tested BP Systolic BP Type Fetus Heart Rate Present Fetus Movement Comments Flowsheet Date 06/24/2021 Shah Score Blood Edema Fundus Height Fundus Units Glucose Ketones Leukocytes Nitrite Labor Signs Protein Cervic Dilation Cervic Effacement Cervic Station Type Weight in lbs Pre/Post Dialysis Refused BP Diastolic BP Location Tested BP Systolic BP Type Fetus Heart Rate Present Fetus Movement Comments Flowsheet Date 06/24/2021 Shah Score Blood Edema Fundus Height Fundus Units Glucose Ketones Leukocytes Nitrite Labor Signs Protein Cervic Dilation Cervic Effacement Cervic Station neg none trace Type Weight in lbs Pre/Post Dialysis Refused Weight 233.812266378861 BP Diastolic BP Location Tested BP Systolic BP Type 84 138 Fetus Heart Rate Present Fetus Movement A Yes Comments patient stated that fell on ice yesterday has some tail bone pain and pressure. talked to dr Harry shabazz last night, fell on back +FM, rhogam at 28 weeks reviewed bs, doing well with diet management f/u 2 weeks Flowsheet Date 06/28/2021 Shah Score Blood Edema Fundus Height Fundus Units Glucose Ketones Leukocytes Nitrite Labor Signs Protein Cervic Dilation Cervic Effacement Cervic Station Type Weight in lbs Pre/Post Dialysis Refused BP Diastolic BP Location Tested BP Systolic BP Type 76 R arm 147 sitting Fetus Heart Rate Present Fetus Movement Comments Flowsheet Date 07/01/2021 Shah Score Blood Edema Fundus Height Fundus Units Glucose Ketones Leukocytes Nitrite Labor Signs Protein Cervic Dilation Cervic Effacement Cervic Station Type Weight in lbs Pre/Post Dialysis Refused BP Diastolic BP Location Tested BP Systolic BP Type Fetus Heart Rate Present Fetus Movement Comments Flowsheet Date 07/01/2021 Shah Score Blood Edema Fundus Height Fundus Units Glucose Ketones Leukocytes Nitrite Labor Signs Protein Cervic Dilation Cervic Effacement Cervic Station Type Weight in lbs Pre/Post Dialysis Refused BP Diastolic BP Location Tested BP Systolic BP Type Fetus Heart Rate Present Fetus Movement Comments Flowsheet Date 07/01/2021 Shah Score Blood Edema Fundus Height Fundus Units Glucose Ketones Leukocytes Nitrite Labor Signs Protein Cervic Dilation Cervic Effacement Cervic Station neg trace trace Type Weight in lbs Pre/Post Dialysis Refused Weight 237.578666186576 BP Diastolic BP Location Tested BP Systolic BP Type 78 127 Fetus Heart Rate Present Fetus Movement A Yes Comments patient states that having s ome swelling and heartburn. forgot glucose log will call this afternoon NST reactive, doing well, call for preadmit, oligo. reviewed with mele, increase hydration and rpt next week Flowsheet Date 07/05/2021 Shah Score Blood Edema Fundus Height Fundus Units Glucose Ketones Leukocytes Nitrite Labor Signs Protein Cervic Dilation Cervic Effacement Cervic Station Type Weight in lbs Pre/Post Dialysis Refused BP Diastolic BP Location Tested BP Systolic BP Type 79 R arm 119 sitting Fetus Heart Rate Present Fetus Movement Comments Flowsheet Date 07/08/2021 Shah Score Blood Edema Fundus Height Fundus Units Glucose Ketones Leukocytes Nitrite Labor Signs Protein Cervic Dilation Cervic Effacement Cervic Station Type Weight in lbs Pre/Post Dialysis Refused BP Diastolic BP Location Tested BP Systolic BP Type Fetus Heart Rate Present Fetus Movement Comments Flowsheet Date 07/08/2021 Shah Score Blood Edema Fundus Height Fundus Units Glucose Ketones Leukocytes Nitrite Labor Signs Protein Cervic Dilation Cervic Effacement Cervic Station Type Weight in lbs Pre/Post Dialysis Refused Weight 239.364252734512 BP Diastolic BP Location Tested BP Systolic BP Type 81 R arm 127 sitting Fetus Heart Rate Present Fetus Movement Comments Flowsheet Date 07/08/2021 Shah Score Blood Edema Fundus Height Fundus Units Glucose Ketones Leukocytes Nitrite Labor Signs Protein Cervic Dilation Cervic Effacement Cervic Station 36 Type Weight in lbs Pre/Post Dialysis Refused BP Diastolic BP Location Tested BP Systolic BP Type Fetus Heart Rate Present A 145 Fetus Movement Comments oligo on not fluid measureme nt, 2 x 2 pocket present, normal BPP and NST, continue testing, treated for GERD. She is vomiting due to her reflux, Protonix required Flowsheet Date 07/12/2021 Shah Score Blood Edema Fundus Height Fundus Units Glucose Ketones Leukocytes Nitrite Labor Signs Protein Cervic Dilation Cervic Effacement Cervic Station Type Weight in lbs Pre/Post Dialysis Refused Weight 239.957284635958 BP Diastolic BP Location Tested BP Systolic BP Type 77 122 Fetus Heart Rate Present Fetus Movement Comments Flowsheet Date 07/15/2021 Shah Score Blood Edema Fundus Height Fundus Units Glucose Ketones Leukocytes Nitrite Labor Signs Protein Cervic Dilation Cervic Effacement Cervic Station Type Weight in lbs Pre/Post Dialysis Refused BP Diastolic BP Location Tested BP Systolic BP Type Fetus Heart Rate Present Fetus Movement Comments Flowsheet Date 07/15/2021 Shah Score Blood Edema Fundus Height Fundus Units Glucose Ketones Leukocytes Nitrite Labor Signs Protein Cervic Dilation Cervic Effacement Cervic Station Type Weight in lbs Pre/Post Dialysis Refused BP Diastolic BP Location Tested BP Systolic BP Type Fetus Heart Rate Present Fetus Movement Comments Flowsheet Date 07/15/2021 Shah Score Blood Edema Fundus Height Fundus Units Glucose Ketones Leukocytes Nitrite Labor Signs Protein Cervic Dilation Cervic Effacement Cervic Station 36 Type Weight in lbs Pre/Post Dialysis Refused Weight 241.25766227874 BP Diastolic BP Location Tested BP Systolic BP Type 77 R arm 128 sitting Fetus Heart Rate Present A 145 Fetus Movement Comments reactive NST today, BPP 8/8, increasing fluid, repeat 1 week -KAT Flowsheet Date 07/19/2021 Shah Score Blood Edema Fundus Height Fundus Units Glucose Ketones Leukocytes Nitrite Labor Signs Protein Cervic Dilation Cervic Effacement Cervic Station Type Weight in lbs Pre/Post Dialysis Refused Weight 243.736873452403 BP Diastolic BP Location Tested BP Systolic BP Type 81 136 Fetus Heart Rate Present Fetus Movement Comments Flowsheet Date 07/22/2021 Shah Score Blood Edema Fundus Height Fundus Units Glucose Ketones Leukocytes Nitrite Labor Signs Protein Cervic Dilation Cervic Effacement Cervic Station Type Weight in lbs Pre/Post Dialysis Refused BP Diastolic BP Location Tested BP Systolic BP Type Fetus Heart Rate Present Fetus Movement Comments Flowsheet Date 07/22/2021 Shah Score Blood Edema Fundus Height Fundus Units Glucose Ketones Leukocytes Nitrite Labor Signs Protein Cervic Dilation Cervic Effacement Cervic Station Type Weight in lbs Pre/Post Dialysis Refused BP Diastolic BP Location Tested BP Systolic BP Type Fetus Heart Rate Present Fetus Movement Comments Flowsheet Date 07/22/2021 Shah Score Blood Edema Fundus Height Fundus Units Glucose Ketones Leukocytes Nitrite Labor Signs Protein Cervic Dilation Cervic Effacement Cervic Station 38 Type Weight in lbs Pre/Post Dialysis Refused Weight 240.789928485971 BP Diastolic BP Location Tested BP Systolic BP Type 72 R arm 141 sitting Fetus Heart Rate Present A 145 Fetus Movement A Yes Comments 1 at 36.6 weeks with chronic hypertension, to induce at 38 weeks on a Sunday, discussed strategy today. Flowsheet Date 07/26/2021 Shah Score Blood Edema Fundus Height Fundus Units Glucose Ketones Leukocytes Nitrite Labor Signs Protein Cervic Dilation Cervic Effacement Cervic Station Type Weight in lbs Pre/Post Dialysis Refused BP Diastolic BP Location Tested BP Systolic BP Type 78 R arm 121 sitting Fetus Heart Rate Present Fetus Movement Comments Flowsheet Date 07/29/2021 Shah Score Blood Edema Fundus Height Fundus Units Glucose Ketones Leukocytes Nitrite Labor Signs Protein Cervic Dilation Cervic Effacement Cervic Station Type Weight in lbs Pre/Post Dialysis Refused Weight 240.706587305231 BP Diastolic BP Location Tested BP Systolic BP Type 79 127 Fetus Heart Rate Present Fetus Movement Comments Flowsheet Date 07/29/2021 Shah Score Blood Edema Fundus Height Fundus Units Glucose Ketones Leukocytes Nitrite Labor Signs Protein Cervic Dilation Cervic Effacement Cervic Station Type Weight in lbs Pre/Post Dialysis Refused BP Diastolic BP Location Tested BP Systolic BP Type Fetus Heart Rate Present Fetus Movement Comments Flowsheet Date 07/29/2021 Shah Score Blood Edema Fundus Height Fundus Units Glucose Ketones Leukocytes Nitrite Labor Signs Protein Cervic Dilation Cervic Effacement Cervic Station neg trace trace Type Weight in lbs Pre/Post Dialysis Refused Weight 240.065414138009 BP Diastolic BP Location Tested BP Systolic BP Type 79 127 Fetus Heart Rate Present Fetus Movement A Yes Comments PATIENT IS HAVING BH CONTRAC TIONS, DISCHARGE, AND SWELLING. NST R will change IOL to 12:30 nd plan cervadil, cervix internally closed, externally 1 thick soft. pt ok with plan of care Menstrual History Last Menstrual Date Menses Monthly On Bcp Conception Prior Menses Frequency Hcg Plus Date Menarche Onset Age 0611/06/2020 Genetic Screening And Infection History Question Response Note Mental Retardation/Autism false Patient's Age Will Be 35 Years Or Older At Estim ated Date of Delivery false Thalassemia (Urdu, South African, Mediterranean, Or Background): MCV < 80 false Neural Tube Defect (Meningomyelocele, Spina Bifi da, Or Anencephaly) false Congenital Heart Defect false Down Syndrome false Jean Carlos-Sachs (eg, Restorationist, Cajun, Indonesian-[place]) f alse Jose Elias Disease false Sickle Cell Disease Or Trait () false Hemophilia Or Other Blood Disorders false Muscular Dystrophy false Cystic Fibrosis false [place]'s Ch[place] false Intellectual Disability/Autism false If Yes, Was Person Tested For Fragile X? false Other Inherited Genetic Or Chromosomal Disorder false Maternal Metabolic Disorder (eg, Type 1 Diabetes , PKU) false Patient Or Baby's Father Had A Child With Defects Not Listed Above false Recurrent Loss, Or A Stillbirth false Medications (including Suppl ements, Vitamins, Herbs, OTC Drugs), Illicit/Recreational Drugs, Alcohol false If Yes, Agent(s) And Strength/Dosage false Any Other Genetic History false Live With Someone With TB Or Exposed To TB false Patient Or Partner Has History Of Genital Herpes false Rash Or Viral Illness Since Last Menstrual Perio d false History Of STD, Gonorrhea, Chlamydia, HPV, Syphi lis false Other Infection History false History of HIV false History of Hepatitis false Prior GBS-infected child false Hemoglobinopathy Or Carrier false Other Structural Defect false Recent Travel History Outside of Country false Delivery Information Delivery Date Delivery Type Labor Anesthesia Weeks Gestation Incision Type Labor Labor Length Hrs Delivered By Post Complications Tubal Sterilization Discharge Date Comments 2 Induce d Regional-Ep idural 38.1 false Chantal Mohr CNM GDM, Maternal Obesity & CHTN Discharge Information Feeding Method Contraceptive Method Maternal HG B and HCT Levels
--- OUTSIDE RECORDS SUMMARY | 2024-10-15 09:54 | XMS_ITS | Data Portability ---
Author Organization [facility] Address [address] [place] [address] Care Team Providers Care De Icer Element Winder Name Role Phone CHINCHILLA ALIX Primary Care Provider Assessment No assessment recorded. Plan of Treatment Reminders Order Date Submit Date Provider Last Modified By Organization Details Last Modified Time Details Appointments None recorded . Lab vitamin B12, serum 2023 024 [facility], [address] [place] [address], [address], 4 11:14:30 vitamin D, 25-hydro xy, total, serum 2023 024 [facility], [address] [place] [address] [address], [address], 4 11:14:33 CBC w/ auto diff 2023 024 [facility], [address] [place] [address], [address], 4 11:14:31 CMP, serum or plasma 2023 024 [facility], [address] [place] [address] [address], [address], 4 11:14:28 TSH + free T4, serum 2023 024 [facility], [address] [facility] [address], [place], [address], 4 11:14:26 Referral nutritio jesús/gerardo bennett referral - Patient would like to see Ashley Hernandez for [place] nutritio n 2024 025 [facility], [address], [place], [address], 5 15:03:26 Procedures None recorded . Surgeries None recorded . Imaging US, abdomen, complete [address] [facility] (Radiology), [address] [place] [address], [address], 4 12:10:36 Medication Orders duloxeti ne 30 mg capsule, delayed release 2024 025 [facility], [address] [place], [address], 5 15:26:51 duloxeti ne 30 mg capsule, delayed release 2024 025 [facility], [address] [place], [address], 5 15:59:16 hydroxyz ine HCl 25 mg tablet 2024 025 [facility], [address] [place], [address], 5 15:59:18 Ozempic 0.25 mg or 0.5 mg (2 mg/1.5 mL) subcutan eous pen injector 2023 025 [facility], [address] [place], [address], 5 16:05:09 pantopra zole 40 mg tablet,d elayed release 2023 024 [facility], [address] [place], [address], 14:21:26 Patient TargetsNo targets recorded. Patient Instructions Encounter Date Encounter Id Patient Instructions Last Modified By Organization Details Last Modified Time 06/18/2023 [id number] When You Want to Lose Weight: Care Instructions Not available 06/18/2023 16:52:07 If pain increase s or if fever, go to ER. 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 Keep log of foods/symptoms. Not available 06/18/2023 16:57:33 Plan pending imaging results. f/u as needed DWP barriers to care: none Not available 06/18/2023 16:57:40 03/31/2024 [id number] learning about t he mediterranean diet [email or web address] Not available 03/31/2024 12:04:41 mediterranean diet Not availab le 03/31/2024 12:04:42 Learning About Being Physically Active [email or web address] Not available 03/31/2024 12:08:07 walking for exercise: care instructions [email or web address] Not available 03/31/2024 12:08:07 Plan of care has been discussed with patient including expected therapeutic benefits and potential side effects of prescribed medication and treatments. Patient verbalizes understanding and is in agreement with the plan of care. Patient was instructed to keep all scheduled appointments and contact the clinic for any additional problems. [email or web address] Not available 04/14/2024 15:10:00 05/01/2024 [id number] Plan of care has been discussed with patient including expected therapeutic benefits and potential side effects of prescribed medication and treatments. Patient verbalizes understanding and is in agreement with the plan of care. Patient was instructed to keep all scheduled appointments and contact the clinic for any additional problems. Not available 05/01/2024 15:50:48 06/06/2024 [id number] Plan of care has been discussed with patient including expected therapeutic benefits and potential side effects of prescribed medication and treatments. Patient verbalizes understanding and is in agreement with the plan of care. Patient was instructed to keep all scheduled appointments and contact the clinic for any additional problems. [email or web address] Not available 07/15/2024 09:43:17 07/09/2024 [id number] Plan of care has been discussed with patient including expected therapeutic benefits and potential side effects of prescribed medication and treatments. Patient verbalizes understanding and is in agreement with the plan of care. Patient was instructed to keep all scheduled appointments and contact the clinic for any additional problems. 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 Body mass index 40+ - severely obese Patient would like to see Ashley Hernandez for [place] nutrition Referring Physician: Darshana Xie, Family Medicine, Encounter Date: 07/09/2024 Results Created Date Observation Date Name Description Value Unit Range Abnormal Flag Note LastModifiedBy Organization Detail LastModifiedTime 03/31/2004/01/2024 TSH+F REE T4 TSH 1.100 uIU/m L 0.450- 4.500 Not Available [facility] ([facility]) [address] [place], [address], 04/01/2024 11:14:26 03/31/20 24 04/01/2024 TSH+F REE T4 T4,free(dire ct) 0.99 NG/dL 0.82-1 .77 Not Available [facility] ([facility]) [address] [place], [address], 04/01/2024 11:14:26 03/31/20 24 04/01/2024 COMP. METAB OLIC PANEL (14) glucose 86 mg/dL 70-99 Not Available [facility] ([facility]) [address] [place], [address], 04/01/2024 11:14:28 03/31/20 24 04/01/2024 COMP. METAB OLIC PANEL (14) BUN 11 mg/dL 6-20 Not Available [facility] ([facility]) [address] [place], [address], 04/01/2024 11:14:28 03/31/20 24 04/01/2024 COMP. METAB OLIC PANEL (14) creatinine 0.83 mg/dL 0.57-1 .00 Not Available [facility] ([facility]) [address], [place], [address], 04/01/2024 11:14:28 03/31/20 24 04/01/2024 COMP. METAB OLIC PANEL (14) eGFR 97 mL/mi n/1.7 3 >59 Not Available [facility] ([facility]) [address] [facility], [place], [address], 04/01/2024 11:14:28 03/31/20 24 04/01/2024 COMP. METAB OLIC PANEL (14) BUN/creatini ne ratio 13 9-23 Not Available [facility] ([facility]) [address] [facility], [place], [address], 04/01/2024 11:14:28 03/31/20 24 04/01/2024 COMP. METAB OLIC PANEL (14) sodium 138 mmol/ L 134-14 4 Not Available [facility] ([facility]) [address] [facility], [place], [address], 04/01/2024 11:14:28 03/31/20 24 04/01/2024 COMP. METAB OLIC PANEL (14) potassium 4.6 mmol/ L 3.5-5. 2 Not Available [facility] ([facility]) [address] [facility], [place], [address], 04/01/2024 11:14:28 03/31/20 24 04/01/2024 COMP. METAB OLIC PANEL (14) chloride 105 mmol/ L 96-106 Not Available [facility] ([place] [facility]) [address] [facility], [place], [address], 04/01/2024 11:14:28 03/31/20 24 04/01/2024 COMP. METAB OLIC PANEL (14) carbon dioxide, total 21 mmol/ L 20-29 Not Available [facility] ([place] [facility]) [address] [facility], [place], [address], 04/01/2024 11:14:28 03/31/20 24 04/01/2024 COMP. METAB OLIC PANEL (14) calcium 9.1 mg/dL 8.7-10 .2 Not Available [facility] ([facility]) [address] [facility], [place], [address], 04/01/2024 11:14:28 03/31/20 24 04/01/2024 COMP. METAB OLIC PANEL (14) protein, total 7.1 g/dL 6.0-8. 5 Not Available [facility] ([facility]) [address] [facility], [place], [address], 04/01/2024 11:14:28 03/31/20 24 04/01/2024 COMP. METAB OLIC PANEL (14) albumin 4.4 g/dL 4.0-5. 0 Not Available [facility] ([facility]) [address] [facility], [place], [address], 04/01/2024 11:14:28 03/31/20 24 04/01/2024 COMP. METAB OLIC PANEL (14) globulin, total 2.7 g/dL 1.5-4. 5 Not Available [facility] ([facility]) [address] [facility] [place], [address], 04/01/2024 11:14:28 03/31/20 24 04/01/2024 COMP. METAB OLIC PANEL (14) bilirubin, total 0.3 mg/dL 0.0-1. 2 Not Available [facility] ([facility]) [address] [facility] [place], [address], 04/01/2024 11:14:28 03/31/20 24 04/01/2024 COMP. METAB OLIC PANEL (14) alkaline phosphatase 94 IU/L 44-121 Not Available [facility] ([facility]) [address] [facility] [place], [address], 04/01/2024 11:14:28 03/31/20 24 04/01/2024 COMP. METAB OLIC PANEL (14) AST (SGOT) 17 IU/L 0-40 Not Available [facility] ([facility]) [address] [facility], [place], [address], 04/01/2024 11:14:28 03/31/20 24 04/01/2024 COMP. METAB OLIC PANEL (14) ALT (SGPT) 14 IU/L 0-32 Not Available [facility] ([facility]) [address] [facility], [place], [address], 04/01/2024 11:14:28 03/31/20 24 04/01/2024 VITAM IN B12 vitamin B12 387 pg/mL 232-12 45 Not Available [facility] ([facility]) [address] [facility], [place], [address], 04/01/2024 11:14:30 03/31/20 24 04/01/2024 CBC WITH DIFFE RENTI AL/PL ATELE T WBC 6.6 x10e3 /uL 3.4-10 .8 Not Available [facility] ([facility]) [address] [facility], [place], [address], 04/01/2024 11:14:31 03/31/20 24 04/01/2024 CBC WITH DIFFE RENTI AL/PL ATELE T RBC 4.43 x10e6 /uL 3.77-5 .28 Not Available [facility] ([facility]) [address] [facility], [place], [address], 04/01/2024 11:14:31 03/31/20 24 04/01/2024 CBC WITH DIFFE RENTI AL/PL ATELE T hemoglobin 13.3 g/dL 11.1-1 5.9 Not Available [facility] ([facility]) [address] [facility], [place], [address], 04/01/2024 11:14:31 03/31/20 24 04/01/2024 CBC WITH DIFFE RENTI AL/PL ATELE T hematocrit 39.9 % 34.0-4 6.6 Not Available [facility] ([facility]) [address] [facility], [place], [address], 04/01/2024 11:14:31 03/31/20 24 04/01/2024 CBC WITH DIFFE RENTI AL/PL ATELE T MCV 90 fL 79-97 Not Available [facility] ([facility]) [address] [facility], [place], [address], 04/01/2024 11:14:31 03/31/20 24 04/01/2024 CBC WITH DIFFE RENTI AL/PL ATELE T MCH 30.0 pg 26.6-3 3.0 Not Available [facility] ([facility]) [address] [facility], [place], [address], 04/01/2024 11:14:31 03/31/20 24 04/01/2024 CBC WITH DIFFE RENTI AL/PL ATELE T MCHC 33.3 g/dL 31.5-3 5.7 Not Available [facility] ([facility]) [address] [place], [address], 04/01/2024 11:14:31 03/31/20 24 04/01/2024 CBC WITH DIFFE RENTI AL/PL ATELE T RDW 12.8 % 11.7-1 5.4 Not Available [facility] ([facility]) [address] [place], [address], 04/01/2024 11:14:31 03/31/20 24 04/01/2024 CBC WITH DIFFE RENTI AL/PL ATELE T platelets 325 x10e3 /uL 150-45 0 Not Available [facility] ([facility]) [address] [facility], [place], [address], 04/01/2024 11:14:31 03/31/20 24 04/01/2024 CBC WITH DIFFE RENTI AL/PL ATELE T neutrophils 63 % notest ab. Not Available [facility] ([facility]) [address] [facility], [place], [address], 04/01/2024 11:14:31 03/31/20 24 04/01/2024 CBC WITH DIFFE RENTI AL/PL ATELE T lymphs 30 % notest ab. Not Available [facility] ([facility]) [address] [facility], [place], [address], 04/01/2024 11:14:31 03/31/20 24 04/01/2024 CBC WITH DIFFE RENTI AL/PL ATELE T monocytes 6 % notest ab. Not Available [facility] ([facility]) [address] [facility], [place], [address], 04/01/2024 11:14:31 03/31/20 24 04/01/2024 CBC WITH DIFFE RENTI AL/PL ATELE T eos 1 % notest ab. Not Available [facility] ([facility]) [address] [facility], [place], [address], 04/01/2024 11:14:31 03/31/20 24 04/01/2024 CBC WITH DIFFE RENTI AL/PL ATELE T basos 0 % notest ab. Not Available [facility] ([facility]) [address] [facility], [place], [address], 04/01/2024 11:14:31 03/31/20 24 04/01/2024 CBC WITH DIFFE RENTI AL/PL ATELE T neutrophils (absolute) 4.2 x10e3 /uL 1.4-7. 0 Not Available [facility] ([facility]) [address] [facility], [place], [address], 04/01/2024 11:14:31 03/31/20 24 04/01/2024 CBC WITH DIFFE RENTI AL/PL ATELE T lymphs (absolute) 2.0 x10e3 /uL 0.7-3. 1 Not Available [facility] ([facility]) [address] [facility], [place], [address], 04/01/2024 11:14:31 03/31/20 24 04/01/2024 CBC WITH DIFFE RENTI AL/PL ATELE T monocytes(ab solute) 0.4 x10e3 /uL 0.1-0. 9 Not Available [facility] ([facility]) [address] [facility], [place], [address], 04/01/2024 11:14:31 03/31/20 24 04/01/2024 CBC WITH DIFFE RENTI AL/PL ATELE T eos (absolute) 0.0 x10e3 /uL 0.0-0. 4 Not Available [facility] ([facility]) [address] [facility], [place], [address], 04/01/2024 11:14:31 03/31/20 24 04/01/2024 CBC WITH DIFFE RENTI AL/PL ATELE T baso (absolute) 0.0 x10e3 /uL 0.0-0. 2 Not Available [facility] ([facility]) [address] [facility], [place], [address], 04/01/2024 11:14:31 03/31/20 24 04/01/2024 CBC WITH DIFFE RENTI AL/PL ATELE T immature granulocytes 0 % notest ab. Not Available [facility] ([facility]) [address] [facility], [place], [address], 04/01/2024 11:14:31 03/31/20 24 04/01/2024 CBC WITH DIFFE RENTI AL/PL ATELE T immature grans (abs) 0.0 x10e3 /uL 0.0-0. 1 Not Available [facility] ([facility]) [address] [facility], [place], [address], 04/01/2024 11:14:31 03/31/20 24 04/01/2024 VITAM IN D, 25-HY DROXY vitamin D, 25-hydroxy 32.3 NG/mL 30.0-1 00.0 Vitam in D defic iency has been defin ed by the Insti tute of Medic ine and an Endoc rine Socie ty pract ice guide line as a level of serum 25-OH vitam in D less than 20 ng/mL (1,2) . The Endoc rine Socie ty went on to furth er defin e vitam in D insuf ficie ncy as a level betwe en 21 and 29 ng/mL (2). 1. IOM (Inst itute of Medic ine). 2009. Dieta ry refer ence intak es for calci um and D. Madeleine puri [place]: [facility] . 2. Karen hyman MF, Aaron lopez [place], Jake off-F gonzalo i HUGGINS, et al. Evalu ation , treat ment, and preve ntion of vitam in D defic iency : an Endoc rine Socie ty clini dana pract ice guide line. JCEM. 2010; 96(7) :1911 -30. Not Available [facility] ([facility]) [address] [facility], [place], [address], 04/01/2024 11:14:33 Result Notes None recorded. Problems Name Problem SNOMED Code Status Onset Date Resolution Date Notes Provider Name and Address Organization Details Recorded Time Gastriti s 3708534 Active 2017 Kira Crystal PA-C Attn: Rj child,[address] [place], [address], [place] - [facility] 8 13:41:13 Morbid obesity 080304326 Active 2022 Alix Chinchilla APN, [facility]ES[facility] Attn: Rj child,[address] [place], [address], [place] - [facility] 3 10:20:29 Epigastr ic pain 41203923 Active 2022 Alix Chinchilla APN, FNP-C Attn: Rj child,[address] [place], [address], [place] - [facility] 3 11:50:45 History of gastric ulcer 427303829 Active 2022 Alix Chinchilla APN, MARGAUX Attn: Accountin g,[address] [facility], [place], [address], [place] - [facility] 3 11:50:46 Acute maxillar y sinusiti s 97260396 Completed 04/19/2016 Removal Reason: resolved Kira Crystal PA-C Attn: Accountin g,[address] [facility], [place], [address], [place] - [facility] 6 09:41:40 Otitis media 72216720 Completed 04/19/2016 Removal Reason: resolved Kira Crystal PA-C Attn: Accountin g,[address] [facility], [place], [address], [place] [facility] 6 09:41:33 Mixed anxiety and depressi ve disorder 886681092 Active Jose rollins, [place] - [facility] 6 15:44:20 Problem Notes None recorded. Procedures Surgical History Date Name Laterality Status Provider Name and Address Organization Details Recorded Time 10/31/19 19 Egd biopsy single/multiple completed JUSTICE Perkins [place] - [facility] 10/31/2018 08:54:09 Tonsillectomy completed Kira Crystal PA-C Attn: Accounting, [address] [facility], [place], [address], [place] - [facility] 10/18/2016 12:21:14 Cholecystectomy completed Victoria Bunch [place] - [facility] 05/05/2020 14:01:57 Appendectomy completed Stefanie Pfeiffer MA [place] - [facility] 07/07/2015 12:02:00 Imaging Results None recorded. Procedure Notes None recorded. Medical Equipment None Reported. Allergies Allergen ID Allergen Name Allergen Category Reaction Reaction Severity Criticality Documentation Date Start Date Code Code System Note Provider Name and Address Organization Details Recorded Time 588543 Benadryl medicatio n Not available Not available Not available 09/09/202061054 7 RxNorm ROBERT Dev[place], [place] - [facility] 09:41:43 Medications Name Sig Start Date Stop Date Status Note LastModified by Organization Details LastModified Time Prescript ion - Prior Authoriza tion Request active Not Available Not Available Not Available amoxicill in 500 mg capsule Take 1 capsule every 8 hours by oral route for 7 days. 04/19 completed Not Available Not Available Not Available Miralax 17 gram/dose oral powder Take 17 g every day by oral route. 05/05 completed Not Available Not Available Not Available venlafaxi ne ER 37.5 mg capsule,e xtended release 24 hr TAKE 1 CAPSULE BY MOUTH ONCE DAILY 09/09 completed pt d/c it was hurting her stomach 09/10/19 21 Not Available Not Available Not Available clindamyc in HCl 300 mg capsule TAKE 1 CAPSULE BY MOUTH EVERY 8 HOURS FOR 7 DAYS 06/29 completed Not Available Not Available Not Available triazolam 0.25 mg tablet active Not Available Not Available Not Available azithromy raji 250 mg tablet TAKE 2 TABLETS BY MOUTH ON DAY 1, AND THEN TAKE 1 TABLET BY MOUTH ONCE A DAY ON DAY 2 THROUGH DAY 5 06/29 completed Not Available Not Available Not Available ibuprofen 800 mg tablet active Not Available Not Available Not Available ofloxacin 0.3 % eye drops INSTILL 1 DROP INTO LEFT EYE 4 TIMES DAILY 06/29 completed Not Available Not Available Not Available fluconazo le 150 mg tablet TAKE ONE TABLET BY MOUTH A ONE-TIME DOSE 06/29 completed Not Available Not Available Not Available benzonata te 200 mg capsule 07/09 completed Not Available Not Available Not Available valacyclo vir 1 gram tablet TAKE 1 TABLET BY MOUTH TWICE DAILY EVERY 12 HOURS FOR 1 DAY 06/29 completed Not Available Not Available Not Available ondansetr on HCl 4 mg tablet TAKE 1 TABLET BY MOUTH EVERY 8 HOURS NEEDED FOR NAUSEA OR VOMITING 05/05 completed Not Available Not Available Not Available prednison e 20 mg tablet 07/09 completed prn Not Available Not Available Not Available phentermi ne 15 mg capsule TAKE 1 CAPSULE BY MOUTH ONCE DAILY 04/09 completed Not Available Not Available Not Available metronida zole 500 mg tablet active Not Available Not Available No t Available hydroxyzi ne HCl 50 mg tablet 04/09 completed Not Available Not Available Not Available phentermi ne 37.5 mg tablet Take 0.5 tablets every day by oral route in the morning for 30 days. 06/10 completed Not Available Not Available Not Available acyclovir 400 mg tablet Take 1 tablet every 8 hours by oral route for 7 days. 04/19 completed Not Available Not Available Not Available amoxicill in 500 mg tablet TK1 TABLET BY MOUTH THREE TIMES DAILY FOR 10 DAYS 09/09 completed Not Available Not Available Not Available Nexium 20 mg capsule,d elayed release Take 1 capsule every day by oral route at bedtime. 05/05 completed Not Available Not Available Not Available oxycodone -acetamin ophen 5 mg-325 mg tablet 05/05 completed Not Available Not Available Not Available amoxicill in 875 mg tablet Take 1 tablet every 12 hours by oral route for 7 days. 07/09 completed Not Available Not Available Not Available citalopra m 20 mg tablet Take 1 tablet every day by oral route. 08/24 completed Not Available Not Available Not Available metoclopr amide 5 mg tablet take one tablet PO QID before meals and bedtime. 04/19 completed Not Available Not Available Not Available cephalexi n 500 mg capsule 07/09 completed Not Available Not Available Not Available pantopraz ole 40 mg tablet,de layed release Take 1 tablet every day by oral route as needed, for GERD. active Not Available Not Available No t Available cyanocoba yanick (vit B-12) 1,000 mcg/mL injection solution Inject 1 mL every month by intramus cular route. 05/05 completed Not Available Not Available Not Available oseltamiv ir 75 mg capsule 08/24 completed Not Available Not Available Not Available esomepraz ole magnesium 40 mg capsule,d elayed release take 1 capsule daily 30 min before meal 11/13 completed Not Available Not Available Not Available ranitidin e 150 mg tablet Take 1 tablet twice a day by oral route. 07/09 completed Not Available Not Available Not Available prednison e 50 mg tablet TAKE 1 TABLET BY MOUTH ONCE DAILY FOR 5 DAYS 04/09 completed Not Available Not Available Not Available BD Luer-Bushra Syringe 3 mL 25 gauge x 1 USE WITH VITAMIN B SOLUTION MONTHLY 09/09 completed Not Available Not Available Not Available sertralin e 25 mg tablet Take 1 tablet every day by oral route. 06/29 completed Not Available Not Available Not Available omeprazol e 20 mg capsule,d elayed release Take 1 capsule every day by oral route at bedtime. 05/05 completed Not Available Not Available Not Available hydroxyzi ne HCl 25 mg tablet TAKE 1/2 (ONE-JEFFERY F) TO 1 TABLET BY MOUTH ONCE DAILY NEEDED FOR ACUTE ANXIETY ATTACKS active Not Available Not Available No t Available ipratropi um bromide 42 mcg (0.06 %) nasal spray USE 2 SPRAY(S) IN EACH NOSTRIL THREE TIMES DAILY 06/29 completed Not Available Not Available Not Available hydroxyzi ne HCl 10 mg tablet TAKE ONE TABLET BY MOUTH 4 TIMES DAILY NEEDED FOR ANXIETY active Not Available Not Available No t Available fluticaso ne propionat e 50 mcg/actua tion nasal spray,raven pension Inhale 2 spray(s) each nostril every day by intranas al route once daily 04/20 completed Not Available Not Available Not Available sertralin e 50 mg tablet TAKE 1 TABLET BY MOUTH ONCE DAILY 05/01 completed Not Available Not Available Not Available amoxicill in 875 mg-potass ium clavulana te 125 mg tablet TAKE 1 TABLET BY MOUTH TWICE DAILY FOR 7 DAYS 06/29 completed Not Available Not Available Not Available escitalop rupesh 10 mg tablet TAKE 1 TABLET BY MOUTH ONCE DAILY 04/09 completed Not Available Not Available Not Available 06/09 (28) 1 mg-20 mcg (21)/75 mg (7) tablet TAKE 1 TABLET BY MOUTH ONCE DAILY 06/29 completed Not Available Not Available Not Available escitalop rupesh 5 mg tablet Take 0.5 tablets every day by oral route. 05/05 completed Not Available Not Available Not Available topiramat e 50 mg tablet TAKE 1 TABLET BY MOUTH TWICE DAILY 04/09 completed Not Available Not Available Not Available duloxetin e 30 mg capsule,d elayed release TAKE 1 CAPSULE BY MOUTH ONCE DAILY FOR 90 DAYS active Not Available Not Available No t Available hydrocodo ne 5 mg-acetam inophen 300 mg tablet active Not Available Not Available Not Available omeprazol e 20 mg tablet,de layed release take one tablet daily 08/24 completed Not Available Not Available Not Available Gianvi (28) 3 mg-0.02 mg tablet TAKE 1 TABLET BY MOUTH ONCE DAILY 05/05 completed Not Available Not Available Not Available Nexplanon 68 mg subdermal implant Inject by subcutan eous route. active Not Available Not Available No t Available Nexium 24HR 20 mg tablet,de layed release Take 1 tablet(s ) twice a day by oral route as needed. active Not Available Not Available No t Available Ozempic 0.25 mg or 0.5 mg (2 mg/1.5 mL) subcutane ous pen injector Inject 0.25 mg every week by subcutan eous route for 30 days. 05/22 completed Not Available Not Available Not Available Fluzone Quad (PF) 60 mcg (15 mcg x 4)/0.5 mL IM syringe 09/09 completed Not Available Not Available Not Available Wegovy 0.25 mg/0.5 mL subcutane ous pen injector Inject 0.25 mg every week by subcutan eous route for 30 days. 07/09 completed not taking too expensiv e Not Available Not Available Not Available Ozempic 0.25 mg or 0.5 mg (2 mg/3 mL) subcutane ous pen injector INJECT 0.25MG EVERY WEEK BY SUBCUTAN EOUS ROUTE active Not Available Not Available No t Available Vitals Date Recorded Body height Provider Name an d Address Organization Details Last Updated DateTime 06/06/2024 162.56 cm Irene Voss [place] [facility] 06/06 15:23:04 Date Recorded Body height Body mass index (BMI) Body weight Oxygen saturation Oxygen saturation in Arterial blood by Pulse oximetry Heart rate Respiratory rate Body temperature Systolic blood pressure Diastolic blood pressure Provider Name and Address Organization Details Last Updated DateTime 162.56 cm 42.8 kg/m2 163629. 58 g 98 % 98 % 70 /min 14 /min 98.2 [degF] 109 mm[Hg] 75 mm[Hg] Rajni Faith MA [facility] 4 16:39:10 Date Recorded Body height Body mass index (BMI) Body weight Oxygen saturation Oxygen saturation in Arterial blood by Pulse oximetry Heart rate Respiratory rate Body temperature Systolic blood pressure Diastolic blood pressure Provider Name and Address Organization Details Last Updated DateTime 5 162.56 cm 41.8 kg/m2 746824. 02 g 96 % 96 % 103 /min 16 /min 97.3 [degF] 116 mm[Hg] 81 mm[Hg] Rajni Faith MA [facility] 5 14:56:46 Date Recorded Body height Body mass index (BMI) Body weight Oxygen saturation Oxygen saturation in Arterial blood by Pulse oximetry Heart rate Respiratory rate Body temperature Systolic blood pressure Diastolic blood pressure Provider Name and Address Organization Details Last Updated DateTime 4 162.56 cm 41.6 kg/m2 011104. 05 g 98 % 98 % 87 /min 16 /min 97.3 [degF] 117 mm[Hg] 77 mm[Hg] Blanquita Laird MA [facility] 4 11:43:02 Date Recorded Body height Body mass index (BMI) Body weight Respiratory rate Body temperature Oxygen saturation Oxygen saturation in Arterial blood by Pulse oximetry Heart rate Systolic blood pressure Diastolic blood pressure Provider Name and Address Organization Details Last Updated DateTime 4 162.56 cm 42.2 kg/m2 294598. 42 g 16 /min 98.2 [degF] 99 % 99 % 83 /min 132 mm[Hg] 83 mm[Hg] Annita Sewell MA [facility] 4 14:02:37 Social History Question Answer Notes LastModified by Organizat ion Details LastModified Time Tobacco Smoking Status Never Smoker ROBERT Thomas, [facility] 07/07/2015 12:02:00 Do You Have An Advance Directive? No Information not available 05/05/2020 Are You Blind Or Do You Have Difficulty Seeing? No Glasses To Drive Information not available 06/18/2023 What Is Your Level Of Caffeine Consumption? Occasional 1 Cup Of Coffee In The Morning, 1 Regular Can Of Pepsi A Day And Somtimes Tea Information not available 06/06/2024 How Much Tobacco Do You Chew? None Information not available 10/16/2017 In The 14 Days Before Symptom Onset, Have You Had Close Contact With A Laboratory-confi rmed COVID-19 While That Case Was Ill? No Information not available 05/05/2020 In The 14 Days Before Symptom Onset, Have You Had Close Contact With A Person Who Is Under Investigation For COVID-19 While That Person Was Ill? No Information not available 05/05/2020 Have You Been To An Area Known To Be High Risk For COVID-19? No Information not available 05/05/2020 Are You Deaf Or Do You Have Serious Difficulty Hearing? No Information not available 09/09/2020 What Type Of Diet Are You Following? REGULAR Information not available 04/20/2016 Which Illicit Or Recreational Drugs Have You Used? Denies Information not available 10/16/2017 Education 4 Year College Information not available 10/16/2017 Are There Any Guns Present In Your Home? No Information not available 05/05/2020 Hard Of Hearing Or Deaf In One Or Both Ears? No Information not available 05/05/2020 Legally Blind In One Or Both Eyes? No Information not available 05/05/2020 Marital Status Single Informati on not available 04/20/2016 What Was The Date Of Your Most Recent Tobacco Screening? 07/09/2024 Information not available 07/09/2024 How Many Children Do You Have? 1 Information not available 06/18/2023 Performs Monthly Self-breast Exam? No Information not available 04/20/2016 Do You Use Protection During Sex? No Information not available 06/18/2023 What Is Your Relationship Status? Information not available 03/31/2024 Do You Use Your Seat Belt Or Car Seat Routinely? Yes Information not available 09/09/2020 Seat Belts Used Routinely Yes Information not available 05/05/2020 Are You Sexually Active? Yes Information not available 06/18/2023 Smoke Alarm In Home Yes Information not available 05/05/2020 Do You Have Smoke And Carbon Monoxide Detectors In Your Home? Yes Information not available 09/09/2020 Are You Passively Exposed To Smoke? No Information not available 09/09/2020 How Much Tobacco Do You Smoke? No [email or web address] Information not available 07/07/2015 General Stress Level Medium Information not available 05/05/2020 Do You Use Sunscreen Routinely? Yes Information not available 05/05/2020 Has Tobacco Cessation Counseling Been Provided? No Information not available 03/31/2024 On What Date Was Tobacco Cessation Counseling Provided? 07/09/2024 Information not available 07/09/2024 How Many Years Have You Smoked Tobacco? 0 Information not available 05/05/2020 How Many Years Have You Used E-cigarettes Or Vape? 1 Less Than A Year Information not available 03/31/2024 Sex: Female Functional Status Question Answer Note LastModified by Organizat ion Details LastModified Time Do you use any illicit or recreational drugs? No Information not available 09/09/2020 Do you or have you ever used any other forms of tobacco or nicotine? Yes Information not available 06/18/2023 What is your level of alcohol consumption? Occasional Information not available 04/20/2016 Do you or have you ever used smokeless tobacco? Never used smokeless tobacco Information not available 05/05/2020 Are you currently employed? No Information not available 06/18/2023 Are you able to care for yourself? 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 Current user of electronic cigarettes 5% nicotine Information not available 06/18/2023 What is your exercise level? None walk Information not available 07/09/2024 Mental Status Question Answer Note LastModified by Organization D etails LastModified Time Do you feel stressed (tense, restless, nervous, or anxious, or unable to sleep at night)? [id number] Information not available 06/06/2024 Family History Relationship Description Onset Age of this Age Resolved Age Notes LastModified by Organization Details LastModified Time Sister Asthma [email or web address] Not availabl e 01/28/2016 14:59:29 Sister Migraine [email or web address] Not availa ble 01/28/2016 14:59:29 Sister Anxiety [email or web address] Not available 11:47:57 Father Diabetes mellitus [email or web address] Not available 01/2016 14:59:29 Father Essential hypertension [email or web address] Not available 0 01/28/2016 14:59:29 Father Hyperlipidem ia [email or web address] Not available 01/2016 14:59:29 Notes:NO new reported , 05/01/24 Medical History Condition Response Coronary Artery Disease N Other N Atrial Fibrillation N High Blood Pressure N Thyroid Problems N Kidney or Bladder Problems N GI Problems N Depression Y COPD N Blood Clots N Skin Problems N Anemia N Heart Attack (MS) N Anxiety Disorder Y Diabetes N Muscle, Joint, or Bone Problems N Seizures/Epilepsy N Acid Reflux (GERD) Y Cancer N Stroke N Asthma Y Allergies N ADHD N Substance Abuse N High Cholesterol N Hepatitis N Liver Disease N Schizophrenia N Headaches Y Heart Failure N Osteoporosis N Gynecological History Statement/Question Response Flow Light Date of LMP 06/04/2024 Menses Monthly N Duration of Flow (days) 4 Age at Menarche 15 Current Control Method Implant LMP Approximate Obstetrics History GPAL:G 1 P 0 0 0 1 Type Value Living 1 Total 1 Immunizations Vaccine Type Date Status Note Provider Nam e and Address Organization Details Recorded Time COVID-19, mRNA, LNP-S, PF, 100 mcg/0.5mL dose or 50 mcg/0.25mL dose 05/26/2021 completed Alix Chinchilla APN, FNP-C Attn: [address] [place], [address], [place] 10/13/2022 14:09:25 COVID-19 vaccine, vector-nr, rS-Ad26, PF, 0.5 mL 08/27/2020 completed Alix Chinchilla APN, FNP-C Attn: Accounting[address] [place], [address], [facility] - SI 10/13/2022 14:09:26 OPV 1993 completed Alix Chinchilla APN, FNP-C Attn: Accounting[address] [facility], [place], [address], [facility] SI 10/13/2022 14:09:26 OPV 01/19/1994 completed Alix Chinchilla APN TODDLER GUIDE-C Attn: Accounting[address] [facility], [place], [address], [facility] SI 10/13/2022 14:09:26 DTP-Hib 1993 completed Alix Chinchilla APN, FNP-C Attn: Accounting[address] [facility], [place], [address], [facility] SI 10/13/2022 14:09:26 DTP-Hib 01/19/1994 completed Alix Chinchilla APN, FNP-C Attn: Accounting[address] [facility], [place], [address], [facility] SI 10/13/2022 14:09:26 Hep B, adolescent or pediatric 1993 completed Alix Chinchilla APN, FNP-C Attn: Accounting[address] [facility], [place], [address], [facility] - SI 10/13/2022 14:09:26 Influenza, split virus, quadrivalent, PF 02/28/2019 completed Alix Chinchilla APN, FNP-C Attn: Accounting[address] [facility], [place], [address], [facility] - SIF 10/13/2022 14:09:26 Influenza, split virus, quadrivalent, PF 02/22/2023 completed Alix Chinchilla APN TODDLER GUIDE-C Attn: Accounting[address] [facility], [place], [address], [facility] - [facility] 04/09/2023 11:35:46 Past Encounters Encounter ID Performer Location Encounter Start Date Encounter Closed Date Diagnosis/Indication Diagnosis SNOMED-CT Code Diagnosis ICD10 Code Diagnosis Note [id number] MD Sobia Mann (Adult Med) [address] [place] [address] 07/07/2015 11:34:57 07/07/2015 16:21:18 Acute maxillary sinusitis 17098911 J01.00 Patient patient to use saline spray and steam inhalation . Augmentin 875 mg po bi for 10 days. Fluticason e nasal spray . Patient is not working until next Sunday. Return to work letter given. Otitis media 03770158 H6 5.01 Augmentin 875mg po bid. Advised patient to use Ibuprifen otc as needed for the pain. [id number] NAYANA Zavala-NIKITA Ramsay (Adult Med) [address] [place] [address] 01/28/2016 14:44:26 02/07/2016 14:57:08 Mixed anxiety and depressive disorder 766519449 F41.8 Adult heal th examination 235738958 Z00.00 [id number] JIGAR Bonner (Adult Med) [address] [place] [address] 04/20/2016 11:06:36 04/21/2016 16:55:04 Mixed anxiety and depressive disorder 578681741 F41.8 Labs & ER summary reviewed, normal labs but thyroid studies not done. she has assoc poor sleep, pt counseled hydroxyzin e may cause drowsiness , try using at night first. Patient also encouraged to start exercising to help with mood. Use hydroxyzin e for panic/anxi ety attack Abnormal weight gain 161 813875 R63.5 dwp getting mood disorder under control then start working on weight loss goals. Body mass index 40+ - severely obese 563218006 Z68.41 New weight gain, patient encouraged to start working out to help w/ mood & weight Gastroesop hageal reflux disease 163200974 K21.9 Patient encouraged to adjust diet, avoid foods that exacerbate sxs, try taking PPI twice a day for 2 weeks, then take daily if sxs improve. also dwp weight loss to improve sxs. Also recommend she start treating chronic constipati on w/ Miralax daily because constipati on can make GERD worse. [id number] JIGAR Bonner (Adult Med) [address] [place] [address] 2016 15:08:12 08/25/2016 10:56:22 Missed period 40469114 N92.5 2 negative home tests. Getting anxious about it. Mixed anxi ety and depressive disorder 127100326 F41.8 dwp that sertraline does not list amenorrhea as common side effect. cont medication at current dose. Gastroesop hageal reflux disease without esophagitis 683106847 K21.9 Uncontroll ed. cont lifestyle modificati ons and adjust diet. Cont weight loss plan. stop omeprazole & start ranitidine BID Body mass index 40+ - severely obese 838163748 Z68.41 Cont weight loss plan, cont walking for exercise. discussed dietary adjustment s, try phone kevin that tracks calories & activities to give herself a better idea of calories in and out. Given 1800 dana meal planning handout [id number] JIGAR Bonner (Adult Med) [address] [place] [address] 10/18/2016 11:49:13 10/18/2016 14:58:51 Has a sore throat 060306611 J02.9 Instructed to do salt water gargles, drink plenty of fluids, Tylenol for pain/fever . Make sure to finish all of abx. Pt could not tolerate throat swab due to h/o vomiting. Will treat empiricall y since 2 others at work have confirmed strep. Candidal vulvovaginitis 33248870 B37.3 Take diflucan if at end of abx develop yeast infection. [id number] MD Sobia Webb (Adult Med) [address] [place] [address] 07/09/2017 11:48:02 07/12/2017 17:26:39 Dizzy spells 800362863 R42 possible hypoglycem ia related to prolonged fast, she has grandmothe r's glucometer , will check fasting blood sugars every few days or if symptomati c and report to this office. Needs to follow consistent carbohydra te diet to prevent ups/downs in blood sugars. Bilateral carpal tunnel syndrome [id number] 3282670 G56.03 positive Phalen's sign, dwp wearing wrist brace bilaterall y at night, take ibuprofen 1-2 tabs PO BID for 2 weeks then use as needed. Source of nerve impingemen t could be from the neck due to patient's job. If not improved w/ conservati ve tx in 4-6 weeks, consider EMG/NCS and/or surgical referral Given exercises to do at least once a day. Body mass index 40+ - severely obese 039896875 Z68.41 As weather gets warmer, increase exercise, needs to eat CHO consistent diet, reduce carbs. Mixed anxi ety and depressive disorder 710847161 F41.8 Mood stable on current dose of sertraline 50mg. some breakthrou gh anxiety sxs but no anxiety attack per pt. cont medication . [id number] MD Sobia Webb (Adult Med) [address] [place] [address] 10/16/2017 16:21:09 10/19/2017 09:23:31 Gastritis 1975042 K29.70 patient had tried OTC zantac, tums, Rx ranitidine 150mg bid, nexium 20mg and omeprazole 20mg daily w/o relief and now sxs have worsened to where she has epigastric pain, daily nausea and almost daily vomiting of undigested foods. worrisome for inflammati on causeing partial blockage into duodenum, check x-ray to r/o partial SBO. If pt continues to have daily sxs despite meds, recommend GI referral. Abdominal pain 42143345 R10.9 r/o SBO Nondiabeti c gastroparesis 07293959 K31.84 dwp that severe GERD/gastr itis could be contributi ng to foods not being digested properly and vomiting up undigested food almost nightly Body mass index 40+ - severely obese 216861018 Z68.41 weight stable for past year, but weight loss would help gastritis/ GERD sxs. [id number] MD Sobia Webb (Adult Med) [address] [place] [address] 11/13/2017 11:32:43 11/13/2017 15:55:26 Abdominal pain 09460663 R10.10 persists to epigastric & RUQ region. r/o cholelithi asis. KUB was negative for signs of SBO. Body mass index 40+ - severely obese 603495601 Z68.41 weight down 5lbs since last month. cont to work on diet & exercise Gastritis 3075230 K29.70 sxs are improving. continue nexium and reglan for another 4 weeks, evaluate ultrasound for possible gallstones . Mixed anxi ety and depressive disorder 789915103 F41.8 Mood stable on current dose of sertraline 50mg. Despite breakup w/ boyfriend, she feels she is ok, cont medication . [id number] MD Sobia Sullivan (Adult Med) [address] [place] [address] 01/18/2018 14:23:40 01/22/2018 14:48:03 Upper respiratory infection 74636181 J06.9 [id number] MD Sobia Webb (Adult Med) [address] [place] [address] 04/19/2018 10:04:38 04/19/2018 16:41:33 Mixed anxiety and depressive disorder 219049522 F41.8 Mood has improved since her bad breakup. She would like to wean off meds now. She took hydroxyzin e early on but not in the last 1-2 mos. Instructed on how to wean off sertraline , s/s of withdrawal s and/or worsening depression . OK to stop hydroxyzin e w/o taper. Call if she feels need to extend medication longer. Gastroesop hageal reflux disease without esophagitis 172521068 K21.9 GERD v. gastritis. Resolved, thinks it was related to stress, no longer taking any Nexium. [id number] MD Sobia Webb (Adult Med) [address] [place] [address] 09/24/2018 09:23:46 09/25/2018 09:32:42 Mixed anxiety and depressive disorder 537036812 F41.8 did not feel any emotions on low dose sertraline 25mg. She is interested in trying new medication . low dose lexapro, call in 3-4 weeks if any problems w/ medication . similar SSRI side effects as sertraline explained to pt. Take in AM. Adult heal th examination 605378232 Z00.00 Vitamin B1 2 deficiency (non anemic) 14557789 E53.8 taking supplement s off/on Body mass index 30+ - obesity 375834064 Z68.38 weight down 26 lbs from last year, cont low dana diet and exercise. Chronic constipation 236 082852 K59.09 controlled w/ daily miralax. [id number] MD Sobia Webb (Adult Med) [address] [place] [address] 09/27/2018 10:45:01 09/27/2018 11:08:03 Vitamin B deficiency 02826240 E53.9 [id number] MD Sobia Webb (Adult Med) [address] [place] [address] 10/17/2018 08:28:05 10/17/2018 09:07:25 Nausea and vomiting 98599325 R11.2 likely worsening gastritis, but no known cause at this time since she has adjusted her diet and treating constipati on. RAnitidine is not helping. Also losing weight, down 29 lbs from last summer. Advised her to call if she can't get in to see Dr. Clarke within the next 4 weeks, we can try a gastric emptying study, but would like to wait to expose her to more radiation since she just had CT done. Body mass index 30+ - obesity 520225671 Z68.38 weight down 29 lbs from last year, cont low dana diet and exercise. [id number] LATONYA Stahl [address] [place] [address] 12/17/2019 13:14:27 12/18/2019 07:12:24 Suspected COVID-19 597865177 Z03.818 D/w pt the current pandemic of COVID-19 and call for social isolation in order to blunt the curve and minimize risk and spread. Encouraged patient and family to take restrictio ns seriously. They have verbalized understand ing of such. Viral syndrome 490032191 B34.9 [id number] MD Sobia Alvarez (Adult Med) [address] [place] [address] 05/05/2020 08:34:16 05/07/2020 08:44:32 Adult health examination 206629799 Z00.01 Encouraged routine SHALLOT P[employer]ER, vision, dental exams, well balanced diet. Disorder o f vitamin B12 843059818 E53.8 recheck lab Mixed anxi ety and depressive disorder 322426745 F41.8 dwp med options; will start effexor R/B/A/SE of antidepres ron medication discussed such as gastrointe stinal s/e, mood irritabili ty, Suicidal ideation, risk of felton. F/U in 2-4 weeks. Call with concerns and questions. Compliance with medication s and follow up care strongly recommende d. Call 911 or ER for crises. Obesity 220143715 E66.9 advised low fat, low cholestero l diet, regular exercise and weight reduction. COVID-19 083133994 U07.1 pos result Mar 2020 [id number] MD Sobia Alvarez (Adult Med) [address] [place] [address] 09/09/2020 09:30:11 09/10/2020 08:15:40 Mixed anxiety and depressive disorder 511821476 F41.8 dwp med options; will start effexor-pt stopped d/t stomach upset; R/B/A/SE of antidepres ron medication discussed such as gastrointe stinal s/e, mood irritabili ty, Suicidal ideation, risk of felton. Intermitte nt palpitations 691580331 R00.2 Pt has intermitte nt palpitatio ns that started a few months ago, no chest pains or other symptoms except for her increased anxiety which correlates when she is feeling this, dwp testing and will start with ekg-plan pending results [id number] MD Sobia Alvarez (Adult Med) [address] [place] [address] 06/29/2022 09:50:41 07/03/2022 10:32:13 Adult health examination 324331673 Z00.01 Encouraged routine [employer] P[employer]ER, vision, dental exams, well balanced diet. Morbid obesity 827101799 E66.01 advised low fat, low cholestero l diet, regular exercise and weight reduction. Mixed anxi ety and depressive disorder 649322031 F41.8 dwp med options; will start effexor-pt stopped d/t stomach upset;now on lexapro, Thea/B/ A/SE of antidepres ron medication discussed such as gastrointe stinal s/e, mood irritabili ty, Suicidal ideation, risk of felton. Fatigue 07358412 R53.83 [id number] MD Sobia Alvarez (Adult Med) [address] [place] [address] 04/09/2023 11:18:06 04/17/2023 13:50:10 Morbid obesity 948421532 E66.01 advised low fat, low cholestero l diet, regular exercise and weight reduction. History of gastric ulcer 202244985 Z87.11 used to see GI, is taking otc antacid but not helping, will add ppi Epigastric pain 31664600 R10.13 intermitte nt pain, dwp diet changes, labs, may need referral back to GI [id number] MD Sobia Alvarez (Adult Med) [address] [place] [address] 06/18/2023 16:13:40 06/19/2023 14:36:36 Epigastric pain 35720659 R10.13 intermitte nt pain, dwp diet changes, labs, may need referral back to GIcont ppi, gave samples for famotidine 20 mgwill order Morbid obesity 432250164 E66.01 advised low fat, low cholestero l diet, regular exercise and weight reduction. Mixed anxi ety and depressive disorder 137607062 F41.8 has been controlled on sertraline 50 mgsome anxiety increased with GI issuesR/B/ A/SE of antidepres ron medication discussed such as gastrointe stinal s/e, mood irritabili ty, Suicidal ideation, risk of felton. [id number] MD Kranthi Starksn 14 IM [address] [facility] [address] [place] [address] 03/31/2024 11:20:17 04/15/2024 10:46:33 HIV screening declined 0487162169 45612 Z53.20 Adult [facility] th examination 605245120 Z00.01 The patient was counseled regarding the appropriat e use ofalcohol, screening procedures and recommende d schedule for colonoscop y, cholestero l, thyroid and diabetes screening, prevention of dental and periodonta l disease, diet, regular sustained exercise for at least 30 minutes 3-4 times per week, regular use of seat belts.Mike mmend dilated eye exam and glaucoma screening every 2 years or as indicated by ophthalmol ogy Vitamin D deficiency 347 30733 E55.9 -Last vitamin d level: 22.7 (06/29/22)-R ecommend taking vitamin D supplement cholecalci ferol 1000 internatio nal units by mouth daily-Mike mmended foods high in vitamin D including: Milk, fortified orange juice, yogurt, salmon, canned tuna, cod liver oil and cereals with vitamin D added-Jodi tor vitamin d levels-Kisha ck vitamin B12 Fatigue 39088849 R53.83 -Check vitamin B12, vitamin d, CBC, thyroid panel, CMP-Plan to discontinu e sertraline therapy-STEAM PAN SP[employer]ER discussed lifestyle changes including improving diet, increasing exercise, and having consistent sleep/wake cycles.-F/ u in 1 month to evaluate changes. Depressive disorder [id number] [id number] F32.A -Patient reports she has chronicall y been on sertraline for a few years. Patient states the drug has a sedative effect on her. She feels all of her emotions are numbed. Patient states she would like to discontinu e sertraline .-Patient agreeable to weaning off sertraline . [employer] gave patient a taper dose of alternatin g dose of 50mg with 25 mg for 2 weeks, then 25mg daily for 2 weeks, then tapering off 25mg to every other day for 1 week, then every 3 days for 1 week, then discontinu e.-[employer] discussed risks of discontinu ing medication .-Denies active suicidal or homicidal thoughts. Denies history of suicidal or homicidal thoughts.- Denies anxiety or insomnia-P atient was educated on her prescribed medication s, rationale for medication s, dosing indication s, adverse reactions, black box warning, dosing indication s, SE (e.g., decreased libido, weight gain, gynecomast ia, and galactorrh ea) and the risks and benefits.- Patient instructed to go to ER or call 911 or 988 for crisis (e.g., suicidal behaviors, suicidal ideations, intent or plan emerge). Additional ly, patient has suicide hotline #.-f/u one month-Advi sed patient to call clinic with questions Body mass index 40+ - severely obese [id number] Z68.41 [employer] advised patient to follow a well balanced diet and obtain regular exercise. Informatio nal handout provided. [id number] MD Kelvin Starks 14 IM [address] [facility] [address] [place] [address] 05/01/2024 13:21:22 05/02/2024 09:32:13 History of gastric ulcer [id number] Z87.11 -Stable-Co ntinue current therapy: Pantoprazo le 40mg PRN for GERD HIV screen ing declined [id number] Z53.20 Body mass index 40+ - severely obese [id number] Z68.41 [employer] advised patient to follow a well balanced diet and obtain regular exercise. Informatio nal handout provided. -Patient would like to try weight loss medication .-Patient reports she previously lost 25lbs with phentermin e. However, this medication exacerbate d her anxiety and caused elevated heart rate and BP.-Patien t would like to try Ozempic 0.25mg weekly. [employer] explained risks and potential side effects of this medication .-Patient to f/u in 1 month Depressive disorder [id number] F31.A -Patient reports she has chronicall y been on sertraline for a few years. Patient states the drug has a sedative effect on her. She feels all of her emotions are numbed. Patient states she would like to discontinu e sertraline .-Patient agreeable to weaning off sertraline . [employer] gave patient a taper dose of alternatin g dose of 50mg with 25 mg for 2 weeks, then 25mg daily for 2 weeks, then tapering off 25mg to every other day for 1 week, then every 3 days for 1 week, then discontinu e.-[employer] discussed risks of discontinu ing medication .-Denies active suicidal or homicidal thoughts. Denies history of suicidal or homicidal thoughts.- Denies anxiety or insomnia-P atient was educated on her prescribed medication s, rationale for medication s, dosing indication s, adverse reactions, black box warning, dosing indication s, SE (e.g., decreased libido, weight gain, gynecomast ia, and galactorrh ea) and the risks and benefits.- Patient instructed to go to ER or call 911 or 988 for crisis (e.g., suicidal behaviors, suicidal ideations, intent or plan emerge). Additional ly, patient has suicide hotline #.-f/u one month-Advi sed patient to call clinic with questions 05/01/24-P atient has successful ly weaned off sertraline -Patient's mood has improved-D eclined medication therapy at this time. [id number] J Carlos Dong MD [facility] [address] [place] [address] 06/06/2024 14:57:45 07/15/2024 10:29:04 Mixed anxiety and depressive disorder [id number] F41.8 -Patient reports she has chronicall y been on sertraline for a few years. Patient states the drug has a sedative effect on her. She feels all of her emotions are numbed. Patient states she would like to discontinu e sertraline .-Patient agreeable to weaning off sertraline . [employer] gave patient a taper dose of alternatin g dose of 50mg with 25 mg for 2 weeks, then 25mg daily for 2 weeks, then tapering off 25mg to every other day for 1 week, then every 3 days for 1 week, then discontinu e.-[employer] discussed risks of discontinu ing medication .-Denies active suicidal or homicidal thoughts. Denies history of suicidal or homicidal thoughts.- Denies anxiety or insomnia-P atient was educated on her prescribed medication s, rationale for medication s, dosing indication s, adverse reactions, black box warning, dosing indication s, SE (e.g., decreased libido, weight gain, gynecomast ia, and galactorrh ea) and the risks and benefits.- Patient instructed to go to ER or call 911 or 988 for crisis (e.g., suicidal behaviors, suicidal ideations, intent or plan emerge). Additional ly, patient has suicide hotline #.-f/u one month-Advi sed patient to call clinic with questions 05/01/24-P atient has successful ly weaned off sertraline -Patient's mood has improved-D eclined medication therapy at this time. 06/06/24-[employer] discussed treatment options with the patient including different medication options, CBT.-Patiadrian nt agreeable to starting duloxetine 30mg daily an hydroxyzin e 25mg PRN for acute anxiety. [employer] discussed potential side effects of medication therapies with patient.-Samanta leggett has a nexplanon for control.-f /u in 1 month-ER precaution s advised [id number] J Carlos Dong MD [facility] (Adult Med) [address] [place] [address] 07/09/2024 14:12:15 07/14/2024 07:42:22 Mixed anxiety and depressive disorder [id number] F41.8 -Patient reports she has chronicall y been on sertraline for a few years. Patient states the drug has a sedative effect on her. She feels all of her emotions are numbed. Patient states she would like to discontinu e sertraline .-Patient agreeable to weaning off sertraline . [employer] gave patient a taper dose of alternatin g dose of 50mg with 25 mg for 2 weeks, then 25mg daily for 2 weeks, then tapering off 25mg to every other day for 1 week, then every 3 days for 1 week, then discontinu e.-[employer] discussed risks of discontinu ing medication .-Denies active suicidal or homicidal thoughts. Denies history of suicidal or homicidal thoughts.- Denies anxiety or insomnia-Samanta leggett was educated on her prescribed medication s, rationale for medication s, dosing indication s, adverse reactions, black box warning, dosing indication s, SE (e.g., decreased libido, weight gain, gynecomast ia, and galactorrh ea) and the risks and benefits.- Patient instructed to go to ER or call 911 or 988 for crisis (e.g., suicidal behaviors, suicidal ideations, intent or plan emerge). Additional ly, patient has suicide hotline #.-f/u one month-Advi sed patient to call clinic with questions 05/01/24-P betsey has successful ly weaned off sertraline -Patient's mood has improved-D eclined medication therapy at this time. 06/06/24-[employer] discussed treatment options with the patient including different medication options, CBT.-Patie nt agreeable to starting duloxetine 30mg daily an hydroxyzin e 25mg PRN for acute anxiety.-Samanta leggett has a nexplanon for control.-f /u in 1 month 07/09/24-Joe bonds reports her mood is much improved on duloxetine .-Patient reports she still is having decreased sex drive, but able to be sexually active on medication -Patient reports decreased panic attacks and she is doing well.-Cont inue at current dose.-f/u in 4-6 months Body mass index 40+ - severely obese [id number] Z68.41 [employer] advised patient to follow a well balanced diet and obtain regular exercise. Informatio nal handout provided. -Patient would like to try weight loss medication .-Patient reports she previously lost 25lbs with phentermin e. However, this medication exacerbate d her anxiety and caused elevated heart rate and BP.-Flor t would like to try Ozempic 0.25mg weekly. [employer] explained risks and potential side effects of this medication .-Patient to f/u in 1 month 5-Ozempic could not get approved-Samanta leggett agreeable to low dose phentermin e-f/u in one month 07/09/24-Joe bonds unable to obtain ozempic due to insurance. -Patient would like to see a dietitian- Referral placed Health Concerns Section Related Observation LastModified by Organization [facility] LastModified Time None Recorded Concern Status LastModified by Organization Details LastModified Time None Recorded Advance Directives Directive N: Payers Encounter Date Sequence Insurance Name Policy Number Policy Mcdowell Covered Member ID Mcdowell Member ID Guarantor Name 06/18/2023 2 *SELF PAY* Hector Doan 06/18/2023 1 [facility] - DOS ON OR AFTER 20 (MEDICAID REPLACEMENT - HMO) Marleny Truong [id number] Marleny Doan 03/31/2024 2 *SELF PAY* Hector Doan 03/31/2024 1 [facility] [id number] Kimo Doan [id number] Marleny Doan 05/01/2024 2 *SELF PAY* Hector Doan 05/01/2024 1 [facility] [id number] Kimo Doan [id number] Marleny Doan 06/06/2024 2 *SELF PAY* Hector Doan 06/06/2024 1 [facility] [id number] Kimo Doan [id number] Marleny Doan 07/09/2024 2 *SELF PAY* Hector Doan 07/09/2024 1 R [id number] Kimo Doan [id number] Marleny Doan Notes Date Note Type Note Provider Name and Address Organization Details Recorded Time 06/18/2023 text/html pt denies vomiti ng or blood in stool. states there is a lot of pressure in upper abdomen and after eating she feels very bloated. stool is in between constipation and diarrhea. Has had a ;ot of anxiety and thinks it could be causing the issues. States this is making her anxious and believes she is over thinking it. states she has GERD.worse after certain foods like chili or alcohol hx of cholecystectomy, appy and egd in past Alix Chinchilla APN, FNP-C Attn: Accounting, [address] [place], [address], [facility] 06/18/2023 16:58:58 03/31/2024 text/html Patient presents to the clinic with acute concerns for fatigue. Patient is established with Alix [employer] for primary care. Patient's past medical history includes: gastric ulcer, anxiety, depression, GERD, asthma, headaches, tonsillectomy, appendectomy, and cholecystectomy. Fatigue-Patient reports she has had these symptoms for past year.-Patient reports symptoms of fatigue, decreased energy, decreased libido, headaches, 'shakey', increased weight, and she has no desire to exercise-Patient has been on higher dose of sertraline 50mg daily-Diet: Patient skips breakfast. Lunch-fruit, vegetable, lunch meats, frozen pizza Dinner-vegetable, starch, and meat. Snacks-Patient reports she enjoys ice cream in the evening. occasional chips, crackers. Patient does eat bread consistency. She drinks 1 pepsi can per day. MITESH CORTEZBC Attn: Accounting[address] [facility], [place], [address], [place] - [facility] 04/14/2024 15:12:53 05/01/2024 text/html Patient presents for one month follow up. Patient is established with Alix [employer] for primary care. Patient's past medical history includes: gastric ulcer, anxiety, depression, GERD, asthma, headaches, tonsillectomy, appendectomy, and cholecystectomy. -Patient reports mood has improved since stopping anti-depressant.-P atient reports she has way more energy GERD-Management per GI-Patient has been taking pantoprazole PRN for GERD management-Patient reports she only uses the medication when she is going to eat a meal that aggravates her GERD. MICHOACANO CORTEZ Attn: Accounting[address] [place], [address], [facility] 05/01/2024 16:03:19 06/06/2024 text/html Patient presents to the clinic for acute concerns for anxiety. Patient's past medical history includes: gastric ulcer, anxiety, depression, GERD, asthma, headaches, tonsillectomy, appendectomy, and cholecystectomy. Anxiety-Patient reports increased anxiety and panic attacks.-Patient reports she felt like she was having an anxiety attack and ended up using an albuterol inhaler, which helped calm down her breathing.-Patient reports she has had increased nicotine use due to anxiety MICHOACANO CORTEZ Attn: Accounting[address] [place], [address], [facility] 07/15/2024 09:45:24 07/09/2024 text/html Patient presents for one month follow up for anxiety. Patient's past medical history includes: gastric ulcer, anxiety, depression, GERD, asthma, headaches, tonsillectomy, appendectomy, and cholecystectomy. -Patient reports mood has improved since starting Duloxetine 30mg daily. MICHOACANO CORTEZ Attn: Accounting[address] [place], [address], [facility] 07/13/2024 10:29:24 OBGyn Episode No OBEpisode recorded.
--- OUTSIDE RECORDS SUMMARY | 2024-10-15 09:54 | XMS_ITS | Continuity of Care Document ---
Author Organization [facility] [employer] Address [address] [place] [address] [address] Assessment No assessment recorded. Plan of Treatment Reminders Order Date Submit Date Provider Last Modified By Organization Details Last Modified Time Details Appointments None recorded. Lab CT + NG + TV, RNA, unspecified specimen 2024 025 [facility] (Lab), [address], [place], [address], 15:49:31 test, urine 2024 025 [facility], [facility] [address], [place], [address], 14:56:44 Referral None recorded. Procedures None recorded. Surgeries None recorded. Imaging None recorded. Medication Orders Nexplanon 68 mg subdermal implant [address] [facility], [address] [place] [place] [address], [address], 15:22:13 Patient TargetsNo targets recorded. Patient InstructionsNo instructions recorded. Reason for Referral None Reported. Results Created Date Observation Date Name Description Value Unit Range Abnormal Flag Note LastModifiedBy Organization Detail LastModifiedTime 10/15/1910/14/2024 pregn macario test, urine HCG negati ve Not Available [employer] [address], [place], [address], 10/14/2024 14:56:38 Result Notes None recorded. Problems Name Problem SNOMED Code Status Onset Date Resolution Date Notes Provider Name and Address Organization Details Recorded Time SNOMED CT Concept Completed 201910/22/2020 Encounte r for other contrace ptive manageme nt;Recor ded Elsewher e: No Locat ion: [facility] S ource: EHR Lapping Machine Set Up Operator soraida: N Practi ce ID: 0001 Alfie lable Time: 01:00:00 PM Yasmine Rosen [facility] 13:56:52 Educatio n Completed 201210/22/2020 Counseli ng contrace ptive manageme nt;Pract ice ID: 0001 Yasmine Rosen [facility] 13:56:41 Speciali zed medical examinat ion Completed 201210/22/2020 Routine gynecolo gical examinat ion;Prac keenan ID: 0001 Yasmine Rosen [facility] 13:56:54 Pregnanc y test negative [id number] Completed 201210/22/2020 Negative Pregnanc y Test;Pra ctice ID: 0001 Yasmnie Rosen [facility] 13:56:46 Implanta tion of subcutan eous contrace ptive Completed 201210/22/2020 Insertio n of implanta ble subderma l contrace ptive;Pr actice ID: 0001 Yasmine Rosen [facility] 13:56:44 Subcutan eous contrace ptive implant present [id number] Completed 201310/22/2020 Removal Or Check Nexplano n;Practi ce ID: 0001 Yasmine Rosen [facility] 13:56:[address] Concept Completed 201510/22/2020 Encounte r for surveill ance of other contrace ptives;P ractice ID: 0001 Yasmine rollins [facility] 13:56:51 Breast lump Completed 201610/22/2020 Diffuse cystic mastopat hy of unspecif ied breast;P ractice ID: 0001 Yasmine rollins [facility] 13:56:35 Carbuncl e [id number] Completed 201610/22/2020 Carbuncl e, unspecif ied;Prac keenan ID: 0001 Yasmine Rosen [facility] 13:56:38 Hypertro phy of clitoris [id number] Completed 201810/22/2020 Oth noninfla mmatory disorder s of vulva and perineum ;Practic e ID: 0001 Yasmine Rosen [facility] 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 13:56:49 Educatio n Completed 201810/22/2020 Encounte r for oth general cnsl and advice on contrace ption;Pr actice ID: 0001 Yasmine Rosen [facility] 13:56:40 Breast lump [id number] Completed 201610/22/2020 Unspecif ied lump in breast;R ecorded Elsewher e: No Locat ion: Yocasta campbell [facility] S ource: EHR Lapping Machine Set Up Operator soraida: N Practi ce ID: 0001 Alfie lable Time: 02:00:00 PM [facility] 13:56:36 Pregnanc y [id number] Completed 202008/15/2021 Casie rollins, [facility] 2 11:01:53 Obesity 314703178 Completed BMI >35 start weekly antenata l testing @ 37wks Casie quiroz ayo, [facility] 2 11:01:47 Pregnanc y-induce d hyperten alcides 55663065 Completed incorrec t diagnosi s Rayshawn Negro MD [address], [place], [address], [facility] 1 21:23:14 Chronic hyperten alcides in obstetri c context [id number] Completed no meds yet - 32 weeks twice weekly per MFM rec /Sun (long day) Casie Colonchadabdiaziz quiroz ayo, [facility] 2 11:01:47 Chronic hyperten alcides in obstetri c context [id number] Active no meds yet - 32 weeks twice weekly per MFM rec /Sun (long day) Casie quiroz null, [facility] 2 11:01:47 Depressi ve disorder 37974065 Completed Zoloft 50mg *06/01/21 EPDS 8 Casie Colonchadabdiaziz quiroz [facility], [facility] 2 11:01:47 Gestatio nal diabetes mellitus 17371537 Completed 2021 Diet teaching complete d 06/01/21. Antenata l testing schedule d. Casie Colonchadabdiaziz quiroz ayo, [facility] 2 11:01:47 Oligohyd ramnios 78551650 Completed Casie Braunevelyncontreraskimi l ayo, [facility] 2 11:01:47 Problem Notes None recorded. Procedures Surgical History Date Name Laterality Status Provider Name and Address Organization Details Recorded Time 025 Control Implant Removal completed MARTINE Kwon [address], [place], [address], [facility] 10/14/2024 14:56:00 025 Control Implant Insertion completed MARTINE Kwon [address], [place], [address], [facility] 10/14/2024 14:55:57 023 Date of Last Pap Smear completed Deepika Varela [facility] 10/14/2024 14:26:33 022 Control Implant Insertion completed Chantal Mohr [facility] 10/07/2021 14:42:48 019 Cholecystectomy completed [facility] 12/22/2020 15:14:20 017 Date of Last Mammogram completed [facility] 08/29/2021 17:52:25 011 Appendectomy completed [facility] 12/22/2020 15:14:14 007 Tonsillectomy completed [facility] 12/22/2020 15:14:26 Imaging Results None recorded. Procedure Notes None recorded. Medical Equipment None Reported. Allergies Allergen ID Allergen Name Allergen Category Reaction Reaction Severity Criticality Documentation Date Start Date Code Code System Note Provider Name and Address Organization Details Recorded Time 2446 Benadryl medicatio n Not available Not available Not available 03/09/2020 7 RxNorm Rhonda rollins [facility] 12:25:11 Medications Name Sig Start Date Stop [...] DAY ON DAY 2 THROUGH DAY 5 11/22 completed Not Available Not Available Not [...] oral route every day 04/21 completed Prescrib ed Elsewher e: No Locat ion: [facility] odify By: [email or web address] E ncounter DateTime : 03/30/20 17 03:00:00 PM Not [...] for 1 week. Repeat. 01/13 completed Prescrib ed Elsewher e: No [facility] odify By: [email or web address] trick En counter DateTime [...] 10/15/27 Not Available Not Available Not Available Bill es Complete 09/12 completed Not Available Not Available Not Available Vitals Date Recorded Body height Body mass index (BMI) Body weight Systolic blood pressure Diastolic blood pressure Provider Name and Address Organization Details Last Updated DateTime 10/14/2024 161.29 cm 43.2 kg/m2 381966.9 1 g 123 mm[Hg] 82 mm[Hg] Deepika Armendarizney [facility] 14:25:42 Social History Question Answer Notes LastModified by Organizat ion Details LastModified Time Tobacco Smoking Status Never Smoker [facility]2021 15:50:55 Do You Have An [...] COVID-19 While That Case Was Ill? No [email or web address] Information n ot available 12/22/2020 In The 14 Days Before Symptom Onset, Have You Had Close Contact With A Person Who Is Under Investigation For COVID-19 While That Person Was Ill? No [email or web address] Information not available 12/22/2020 Have You Been To An Area Known To Be High Risk For COVID-19? No [email or web address] Information not available 12/22/2020 Are You Deaf Or Do You Have Serious Difficulty Hearing? No Information not available 10/22/2020 What Type Of Diet Are You Following? REGULAR Information n ot available 10/22/2020 What Is The Highest Grade Or Level Of School You Have Completed Or The Highest Degree You Have Received? [id number] Information not available 02/24/2021 Are There Any Guns Present In Your Home? No Information not available 02/24/2021 Have You Ever Been Counseled For Unhealthy Alcohol Use? No [email or web address] Information not available 07/01/2021 Do You Use [...] Has Tobacco Cessation Counseling Been Provided? No [email or web address] Information not available 07/01/2021 Have You Used IV Drugs? No Information not available 02/24/2021 Do You Have Difficulty Walking Or Climbing Stairs? No [email or web address] Information not available 07/01/2021 Sex: Unknown Functional Status Question Answer Note LastModified by Organizat ion Details LastModified Time Do you use any illicit or recreational drugs? No Information not available 10/22/2020 Do you or have you ever used any other forms of tobacco or nicotine? No [email or web address] Information not available 07/01/2021 What is your level of alcohol consumption? Occasional Information not available 10/22/2020 Are you able to walk? YESWOREST Information not available 10/22/2020 Are you able to care for yourself? 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 No [email or web address] Information not available 07/01/2021 What is your exercise level? Moderate Information not available 10/22/2020 Mental Status Question Answer Note LastModified by Organization D etails LastModified Time Do you feel stressed (tense, restless, nervous, or anxious, or unable to sleep at night)? [id number] [email or web address] Information not available 02/24/2021 Family History Relationship [...] N Drug/Latex Allergies/Reactions N Blood Transfusion N Dermatologic Disorders N Lung Disease N Defects or Inherited Disease N Breast Problem N Gestational Diabetes N Hematologic disorders N Anesthesia Complications N History of STI N Deep Vein Thrombosis N Polycystic ovary syndrome N Anxiety Disorder Y Autoimmune disease N Arthritis N Infertility N Polyps N Acid Reflux (GERD) N History of abnormal pap N Cancer N Stroke N Varicosities N Neurologic/Epilepsy N Endometriosis N High Cholesterol N Headaches N Fibromyalgia N Kidney Disease N Heart Problems N [...] SNOMED-CT Code Diagnosis ICD10 Code Diagnosis Note [id number] MARTINE Kwon [employer] [address] [address] 10/14/2024 13:48:32 10/14/2024 15:03:40 Contraception status 307617322 Z30.46 Discussed with patient risks, benefits, and [...] of care. Implantati on of subcutaneous contraceptive [id number] Z30.017 Venereal d isease screening 313595223 Z11.3 Health Concerns Section Related Observation LastModified by Organization Detai ls LastModified Time None Recorded Concern Status LastModified by Organization Details LastModified Time None Recorded Payers Encounter Date Sequence Insurance Name Policy Number Policy Mcdowell Covered Member ID Mcdowell Member ID Guarantor Name 10/14/2024 1 [facility] [id number] Kimo Doan [id number] Marleny Doan Notes Date Note Type Note Provider Name and Address Organization Details Recorded Time 10/14/2024 text/html 29yopresents for nexplanon removal/replacements he would like to discuss nexplanon today as well as alternative optionscurrent nexplanon inserted 09/30/2021 MARTINE wKon [address], [place], [address], [facility] 10/14/2024 15:54:40 OBGyn Episode No OBEpisode recorded.
[2024-10-15 10:02] VITALS: BP 137/77; PULSE 102; RESP 20; TEMP 36.9; O2SAT 100
--- NOTE | 2024-10-15 10:24 | ED_ITS ---
HPI - Ear Problem General Chief complaint: Ear Stated complaint: sorethroat, bilateral ear pain Time Seen by Provider: 10/15/24 10:24 Source: patient Mode of arrival: ambulatory Limitations: no limitations History of Present Illness HPI Narrative: 29-year-old female presents with complaint nasal congestion, postnasal drainage, sore throat for the past 3-4 days. Reports right ear pain starting yesterday. Taking Zyrtec and Sudafed daily. Concerned for strep for ear infection. No chest pain or shortness of breath. all systems reviewed and negative except as noted above. Related Data Home Medications ?Medication ?Instructions ?Recorded ?Confirmed ?Last Taken ?Type escitalopram oxalate 10 mg tablet 10 mg PO DAILY 09/07/22 09/07/22 Unknown History hydroxyzine HCl 25 mg tablet mg 10/15/24 Unknown History Allergies Allergy/AdvReac Type Severity Reaction Status Date / Time diphenhydramine AdvReac Unknown Hyperactive Verified 10/15/24 10:14 Review of Systems Review of Systems: CONSTITUTIONAL: Denies fever, chills, or sweats. EYES: Denies visual changes, redness, or discharge. ENT: reports rhinorrhea, congestion, sore throat, postnasal drainage, right ear pain RESPIRATORY: Denies cough or dyspnea. GASTROINTESTINAL: Denies abdominal pain, nausea, vomiting, or diarrhea. GENITOURINARY: Denies dysuria or hematuria. SKIN: Denies rash or itching. MUSCULOSKELETAL: Denies back pain, joint pain, or myalgia. NEUROLOGIC: Denies headache, numbness, or weakness. PSYCHIATRIC: Denies anxiety or depression. All other systems reviewed are negative, except as documented in HPI. [facility] Past Medical History Medical History Asthma as a child, no inhaler use as an adult Constipation Gestational diabetes IUP (intrauterine ), incidental Surgical History Surgical History History of appendectomy History of cholecystectomy Family History Family History Mother No pertinent past medical history Other Cancer Diabetes mellitus Hypertension Social History Social History Smoking status: Never smoker Second hand tobacco smoke exposure: No Substance use: never Gender identity (if verbalized by the patient): Female Sexual Orientation (if Verbalized by the Patient): Straight or Heterosexual Spiritual care concerns: No Comments At time of signature, agree with nursing past medical, surgical, social and family history. There is no relevant family history pertinent to the presenting complaint. Exam Narrative: GENERAL: This is a well-nourished, well-developed patient, in no apparent distress. HEAD: normocephalic, atraumatic. EYES: PERRL. Sclera clear/white. Vision is grossly intact. EARS: External ears normal, auditory canals clear and without drainage, fluid bilateral TMs with mild erythema to right TM with mild bulging. No perforation bilaterally. Hearing grossly intact. NOSE: External nose normal with clear nasal drainage THROAT: Mucous membranes moist, erythema with postnasal drainage, mild swelling NECK: Neck supple, non-tender without lymphadenopathy, masses or thyromegaly. CARDIOVASCULAR: Regular rate and rhythm without murmurs, gallops, or rubs. RESPIRATORY: Clear to auscultation. Breath sounds equal bilaterally. No wheezes, rales, or rhonchi. SKIN: warm, Dry, intact with no suspicious lesions or rash, good texture and turgor. NEURO: awake, alert, and oriented to person, place and time. There were no obvious focal neurologic abnormalities. EXTREMITIES: No joint tenderness, effusion, or edema noted. Course Course Level of Care: Express Care Visit Vital Signs Vital signs: Vital Signs Temperature 36.9 C 10/15/24 10:02 Pulse Rate 102 H 10/15/24 10:02 Respiratory Rate 10/15/24 10:02 Blood Pressure 137/77 10/15/24 10:02 Pulse Oximetry 100 10/15/24 10:02 Oxygen Delivery Room Air 10/15/24 10:02 Temperature 36.9 C 10/15/24 10:02 Pulse Rate 102 H 10/15/24 10:02 Respiratory Rate 20 10/15/24 10:02 Blood Pressure 137/77 10/15/24 10:02 Pulse Oximetry 100 10/15/24 10:02 Oxygen Delivery Room Air 10/15/24 10:02 Reviewed Medical Decision Making MDM Narrative Medical decision making narrative: negative strep. Strep culture ordered. Will treat patient with antibiotic for right serous otitis media. Patient is well-appearing, nontoxic. Agrees with plan of care. Vital Signs Vital Signs: Vital Signs Temperature 36.9 C 10/15/24 10:02 Pulse Rate 102 H 10/15/24 10:02 Respiratory Rate 20 10/15/24 10:02 Blood Pressure 137/77 10/15/24 10:02 Pulse Oximetry 100 10/15/24 10:02 Oxygen Delivery Room Air 10/15/24 10:02 Temperature 36.9 C 10/15/24 10:02 Pulse Rate 102 H 10/15/24 10:02 Respiratory Rate 20 10/15/24 10:02 Blood Pressure 137/77 10/15/24 10:02 Pulse Oximetry 100 10/15/24 10:02 Oxygen Delivery Room Air 10/15/24 10:02 Lab Data Labs: Lab Results 10/15/24 Range/Units 10:13 POC Grp A Strep Screen Negative (Negative) Discharge Plan Discharge Clinical Impression: Acute sinusitis Qualifiers: Sinusitis location: unspecified location Recurrence: not specified as recurrent Qualified Code(s): J01.90 - Acute sinusitis, unspecified Acute serous otitis media, right ear Qualifiers: Recurrence: not specified as recurrent Qualified Code(s): H65.01 - Acute serous otitis media, right ear Patient Disposition: Home Condition: Stable Instructions: Antibiotic Form, Fluid In The Ear (Serous Otitis Media) (ED) Additional Instructions: your strep test was negative today. Take antibiotic as prescribed until gone. Continue taking Zyrtec and Sudafed daily. Drink at least 64 oz of water a day. Place cool mist humidifier in bedroom where you sleep. See your doctor if symptoms are not improving. Patient Language: Uruguayan Prescriptions: New amoxicillin 875 mg tablet 875 mg PO Q12H 10 Days Qty: 20 0RF No Action escitalopram oxalate 10 mg tablet 10 mg PO DAILY hydroxyzine HCl 25 mg tablet Follow-up/Referrals: Darshana Xie RN [Primary Care Provider] - Time of Disposition: 10:31
[2024-10-15 10:31] LABS: EDSTREPNEGPOS1 Negative (Negative)
== END 2024-10-15 10:44 | disposition home or self-care (01) ==
PROVIDERS: Emergency Provider Nurse Practitioner Family
DX: J01.90 Acute sinusitis, unspecified (principal); H65.01 Acute serous otitis media, right ear
CPT/HCPCS: 87081; 87880; 99213; G0463